=== PATIENT | male | born 1955 | race Caucasian/White ===

== ENCOUNTER 2017-01-25 20:48 | Emergency (ER) | payer MEDICAID ==
[~2017-01-25] VITALS: Ht 185.4 cm; Wt 90.0 kg
[~2017-01-25 20:48] MED LIST: ALBU0.63 NEB; TIOT18CA INH; [UNRECOGNIZED DRUG - REMARK]
[2017-01-25] MEDS ORDERED: ONDANSETRON 2MG/ML, 2ML IVPush ONE (21:30)
[2017-01-25] MEDS ORDERED: SODIUM CHLORIDE FLUSH 10ML SYR IVF ONE (21:30)
[2017-01-25] MEDS ORDERED: SODIUM CHLORIDE 0.9% 1,000ML IVBOLUS ONE (21:30)
[2017-01-25] MEDS ORDERED: LORazepam 2 MG/ML, 1ML IVPush ONE (21:30)
[2017-01-25] MEDS ORDERED: MORPHINE SULFATE 4 MG/ML, 1ML IVPush PRN (21:30)
[2017-01-25] MEDS ORDERED: ONDANSETRON 2MG/ML, 2ML ONE (21:51)
[2017-01-25] MEDS ORDERED: MORPHINE SULFATE 4 MG/ML, 1ML ONE (21:51)
[2017-01-25 22:47] LABS: ASPARTATE AMINO TRANSFERASE 26 U/L (15-37); BLOOD UREA NITROGEN 8 mg/dL (7-18)
[2017-01-25 22:52] LABS: IS PT STATUS REG ER OR PRE ER? YES
[2017-01-26 02:53] VITALS: BP 142/81
== END 2017-01-26 02:55 | disposition home or self-care (01) ==
LOC: ED 22:54
DX: K29.20 Alcoholic gastritis without bleeding (principal); R10.13 Epigastric pain; F10.220 Alcohol dependence with intoxication, uncomplicated; J44.9 Chronic obstructive pulmonary disease, unspecified; I10 Essential (primary) hypertension; J45.909 Unspecified asthma, uncomplicated; F17.210 Nicotine dependence, cigarettes, uncomplicated; E78.00 Pure hypercholesterolemia, unspecified; Z91.14 Patient's other noncompliance with medication regimen
CPT/HCPCS: 36415; 74022; 80053; 80307; 81003; 83690; 84484; 85025; 93005; 96361; 96374; 96375; 99285; J2405; J7030

== ENCOUNTER 2017-04-22 07:56 | Inpatient (IN) | payer MEDICAID ==
[~2017-04-22] VITALS: Ht 185.4 cm; Wt 83.2 kg
[2017-04-22] MEDS ORDERED: ALBUTEROL/IPRATROPIUM 2.5MG/0.5MG, 3 ML NPPB ONE (09:00)
[2017-04-22] MEDS ORDERED: SODIUM CHLORIDE FLUSH 10ML SYR IVF ONE (09:00)
[2017-04-22] MEDS ORDERED: ONDANSETRON 2MG/ML, 2ML IVPush ONE (09:00)
[2017-04-22] MEDS ORDERED: SODIUM CHLORIDE 0.9% 1,000ML IVBOLUS ONE (09:00)
[2017-04-22] MEDS ORDERED: MORPHINE SULFATE 4 MG/ML, 1ML IVPush PRN (09:00)
[2017-04-22] MEDS ORDERED: FAMOTIDINE 20 MG/2 ML IVP ONE (09:00)
[2017-04-22] MEDS ORDERED: ALBUTEROL/IPRATROPIUM 2.5MG/0.5MG, 3 ML ONE (09:02)
[2017-04-22 09:12] LABS: ASPARTATE AMINO TRANSFERASE 39 U/L (15-37); BLOOD UREA NITROGEN 5 mg/dL (7-18)
[2017-04-22] MEDS ORDERED: ONDANSETRON 2MG/ML, 2ML ONE (09:15)
[2017-04-22] MEDS ORDERED: MORPHINE SULFATE 4 MG/ML, 1ML ONE (09:15)
[2017-04-22] MEDS ORDERED: FAMOTIDINE 20 MG/2 ML ONE (09:16)
[2017-04-22] MEDS ORDERED: [UNRECOGNIZED DRUG - REMARK] (09:38)
[2017-04-22] MEDS ORDERED: [UNRECOGNIZED DRUG - REMARK] PO (09:38)
[2017-04-22] MEDS ORDERED: OMNIPAQUE 350 MG/ML, 100ML BOTTLE ONE (10:34)
[2017-04-22] MEDS ORDERED: LEVOFLOXACIN/PMX 750MG/150ML 150 ML IVPB ONE (11:30)
[2017-04-22] MEDS ORDERED: LEVOFLOXACIN/PMX 750MG/150ML 150 ML ONE (11:43)
[2017-04-22] MEDS ORDERED: SODIUM CHLORIDE 0.9% 1,000 ML IV ONE (12:04)
[2017-04-22] MEDS ORDERED: SODIUM CHLORIDE FLUSH 10ML SYR IVF PRN (12:30)
[2017-04-22] MEDS: SODIUM CHLORIDE 0.9% 1,000 ML IV SCH (12:49)
[2017-04-22] MEDS ORDERED: BISACODYL 10 MG SUPP PR PRN (13:00)
[2017-04-22] MEDS ORDERED: ENALAPRILAT 1.25 MG/ML, 2ML IVPush PRN (13:00)
[2017-04-22] MEDS ORDERED: LORazepam 1MG TABLET PO PRN ×3 (13:00)
[2017-04-22] MEDS ORDERED: ONDANSETRON 2MG/ML, 2ML IVPush PRN (13:00)
[2017-04-22] MEDS ORDERED: DOCUSATE 100 MG CAPSULE PO PRN (13:00)
[2017-04-22] MEDS ORDERED: LABETALOL 5MG/ML, 20ML IVPush PRN (13:00)
[2017-04-22] MEDS ORDERED: LORazepam 2 MG/ML, 1ML IV PRN ×4 (13:00)
[2017-04-22] MEDS ORDERED: POLYETHYLENE GLYCOL 17 GM PACKET PO PRN (13:00)
[2017-04-22] MEDS ORDERED: ALBUTEROL/IPRATROPIUM 2.5MG/0.5MG, 3 ML NPPB SCH (13:00)
[2017-04-22] MEDS ORDERED: morphine SULFATE 10 MG/ML, 1ML IVPush PRN (13:00)
[2017-04-22] MEDS: NICOTINE 7 MG/24 HR PATCH.TD24 TD SCH (14:00)
[2017-04-22 14:05] VITALS: BP 124/87
[2017-04-22 14:13] VITALS: BP 124/87
[2017-04-22] MEDS: POTASSIUM CHLORIDE 20 MEQ, MAGNESIUM SULFATE 2 GM, THIAMINE 100 MG, MVI ADULT 10 ML, FO... IV SCH ×2 (14:56→23:02)
[2017-04-22] MEDS: CEFTRIAXONE PMX 1GM/50ML 50 ML IV SCH (14:59)
[2017-04-22] MEDS: ALBUTEROL/IPRATROPIUM 2.5MG/0.5MG, 3 ML NPPB SCH ×2 (15:00→20:00)
[2017-04-22] MEDS: PANTOPRAZOLE 40 MG IV IVPush SCH (15:02)
[2017-04-22] MEDS: methylPREDNISolone SOD SUCC 125 MG/2 ML IVPush SCH ×2 (15:02→20:53)
[2017-04-22] MEDS: HEPARIN 5,000 UNITS/ML, 1ML SQ SCH ×2 (15:02→22:36)
[2017-04-22] MEDS: DOXYCYCLINE 100 MG in DEXTROSE 5% 250 ML IV SCH (15:57)
[2017-04-22 19:22] VITALS: BP 126/88
[2017-04-22] MEDS: LORazepam 2 MG/ML, 1ML IV PRN (20:53)
[2017-04-23 02:00] VITALS: BP 149/83
[2017-04-23] MEDS: SODIUM CHLORIDE 0.9% 1,000 ML IV SCH ×2 (02:00→14:00)
[2017-04-23] MEDS: PANTOPRAZOLE 40 MG IV IVPush SCH ×2 (02:00→14:58)
[2017-04-23] MEDS: methylPREDNISolone SOD SUCC 125 MG/2 ML IVPush SCH ×4 (03:00→21:46)
[2017-04-23] MEDS: DOXYCYCLINE 100 MG in DEXTROSE 5% 250 ML IV SCH ×2 (03:00→16:15)
[2017-04-23 05:56] LABS: ASPARTATE AMINO TRANSFERASE 18 U/L (15-37); BLOOD UREA NITROGEN 4 mg/dL (7-18)
[2017-04-23 07:03] VITALS: BP_SYST 146; BP_SYST 175; BP_DIAS 103; BP_DIAS 78
[2017-04-23 07:10] LABS: ANISOCYTOSIS 1+
[2017-04-23] MEDS: HEPARIN 5,000 UNITS/ML, 1ML SQ SCH ×3 (07:58→22:44)
[2017-04-23] MEDS: LORazepam 2 MG/ML, 1ML IV PRN ×2 (07:58→10:09)
[2017-04-23] MEDS: ALBUTEROL/IPRATROPIUM 2.5MG/0.5MG, 3 ML NPPB SCH ×4 (08:20→20:00)
[2017-04-23] MEDS ORDERED: ERGOCALCIFEROL 50,000 UNIT CAPSULE PO SCH (09:30)
[2017-04-23] MEDS ORDERED: POTASSIUM CHLORIDE 40 MEQ in SODIUM CHLORIDE 0.9% 500 ML IV ONE (09:30)
[2017-04-23] MEDS: POTASSIUM CHLORIDE 20 MEQ, MAGNESIUM SULFATE 2 GM, THIAMINE 100 MG, MVI ADULT 10 ML, FO... IV SCH (10:01)
[2017-04-23 13:25] VITALS: BP 157/91
[2017-04-23] MEDS: LORazepam 1MG TABLET PO PRN (13:30)
[2017-04-23] MEDS: NICOTINE 7 MG/24 HR PATCH.TD24 TD SCH (14:00)
[2017-04-23] MEDS: CEFTRIAXONE PMX 1GM/50ML 50 ML IV SCH (15:20)
[2017-04-23 19:07] VITALS: BP 159/91
[2017-04-23] MEDS ORDERED: MAGNESIUM SULFATE IV SCH ×2 (20:30→21:27)
[2017-04-23] MEDS ORDERED: THIAMINE IV SCH ×2 (20:30→21:27)
[2017-04-23] MEDS ORDERED: FOLIC ACID IV SCH ×2 (20:30→21:27)
[2017-04-23] MEDS ORDERED: POTASSIUM CHLORIDE IV SCH ×2 (20:30→21:27)
[2017-04-23] MEDS ORDERED: [UNRECOGNIZED DRUG - OTHER] IV SCH ×2 (20:30→21:27)
[2017-04-23] MEDS: OXYcodone IR 5MG TABLET PO PRN (21:46)
[2017-04-23] MEDS: POTASSIUM CHLORIDE IV SCH (21:51)
[2017-04-23] MEDS: MVI ADULT IV SCH (21:51)
[2017-04-23] MEDS: FOLIC ACID IV SCH (21:51)
[2017-04-23] MEDS: [UNRECOGNIZED DRUG - OTHER] IV SCH (21:51)
[2017-04-23] MEDS: THIAMINE IV SCH (21:51)
[2017-04-23] MEDS ORDERED: D5%-0.9% NACL+KCL 20MEQ 1,000 ML IV SCH (22:00)
[2017-04-23] MEDS: D5%-0.9% NACL+KCL 20MEQ 1,000 ML IV SCH (22:00)
[2017-04-23] MEDS: LORazepam 0.5MG TABLET PO PRN (22:44)
[2017-04-24 00:40] VITALS: BP 155/94
[2017-04-24] MEDS: PANTOPRAZOLE 40 MG IV IVPush SCH ×2 (03:05→14:59)
[2017-04-24] MEDS: DOXYCYCLINE 100 MG in DEXTROSE 5% 250 ML IV SCH ×2 (03:06→14:57)
[2017-04-24] MEDS: methylPREDNISolone SOD SUCC 125 MG/2 ML IVPush SCH ×3 (03:06→17:42)
[2017-04-24 06:25] LABS: BLOOD UREA NITROGEN 5 mg/dL (7-18)
[2017-04-24 07:00] VITALS: BP 155/82
[2017-04-24] MEDS: HEPARIN 5,000 UNITS/ML, 1ML SQ SCH ×3 (07:00→17:47)
[2017-04-24] MEDS: ALBUTEROL/IPRATROPIUM 2.5MG/0.5MG, 3 ML NPPB SCH (08:00)
[2017-04-24] MEDS: LORazepam 0.5MG TABLET PO PRN ×2 (08:39→15:00)
[2017-04-24] MEDS: D5%-0.9% NACL+KCL 20MEQ 1,000 ML IV SCH (09:28)
[2017-04-24] MEDS: NICOTINE 7 MG/24 HR PATCH.TD24 TD SCH (14:00)
[2017-04-24] MEDS ORDERED: POTASSIUM CHLORIDE 40 MEQ in SODIUM CHLORIDE 0.9% 500 ML IV ONE (15:00)
[2017-04-24 15:15] VITALS: BP 150/91
[2017-04-24] MEDS: CEFTRIAXONE PMX 1GM/50ML 50 ML IV SCH (17:41)
[2017-04-24] MEDS: OXYcodone IR 5MG TABLET PO PRN (17:53)
[2017-04-24 20:00] VITALS: BP 164/95
[2017-04-24] MEDS: LORazepam 1MG TABLET PO PRN (20:31)
[2017-04-24] MEDS ORDERED: METHOCARBAMOL 500 MG TABLET PO ONE (22:00)
[2017-04-25] MEDS: methylPREDNISolone SOD SUCC 125 MG/2 ML IVPush SCH ×2 (00:56→06:27)
[2017-04-25] MEDS: MVI ADULT IV SCH (01:00)
[2017-04-25] MEDS: THIAMINE IV SCH (01:00)
[2017-04-25] MEDS: POTASSIUM CHLORIDE IV SCH (01:00)
[2017-04-25] MEDS: FOLIC ACID IV SCH (01:00)
[2017-04-25] MEDS: [UNRECOGNIZED DRUG - OTHER] IV SCH (01:00)
[2017-04-25 02:00] VITALS: BP 157/74
[2017-04-25] MEDS: DOXYCYCLINE 100 MG in DEXTROSE 5% 250 ML IV SCH (02:53)
[2017-04-25] MEDS: HEPARIN 5,000 UNITS/ML, 1ML SQ SCH ×2 (02:53→09:40)
[2017-04-25] MEDS: PANTOPRAZOLE 40 MG IV IVPush SCH (03:05)
[2017-04-25 05:47] LABS: BLOOD UREA NITROGEN 12 mg/dL (7-18)
[2017-04-25] MEDS ORDERED: ALBUTEROL/IPRATROPIUM 2.5MG/0.5MG, 3 ML NPPB PRN (07:00)
[2017-04-25 07:35] VITALS: BP 116/75
[2017-04-25] MEDS: LORazepam 0.5MG TABLET PO PRN (09:37)
[2017-04-25] MEDS ORDERED: POTASSIUM CHLORIDE 20 MEQ TAB.ER.PRT PO ONE (10:00)
[2017-04-25] MEDS ORDERED: IPRA3AMP NPPB (10:18)
[2017-04-25] MEDS ORDERED: OMEP-110 PO (10:18)
[2017-04-25] MEDS ORDERED: ERGO500017 PO (10:18)
[2017-04-25] MEDS ORDERED: CEFD300C37 PO (10:18)
[2017-04-25] MEDS ORDERED: DOXY100T PO (10:18)
[2017-04-25] MEDS ORDERED: PRED5TAB PO (10:18)
[2017-04-25] MEDS ORDERED: LOSA25TA2 PO (10:27)
[2017-04-25] MEDS ORDERED: FLUT1AER INH (10:29)
[2017-04-25] MEDS ORDERED: PNEUMOCOCCAL 23 VACCINE IM-VACC ONE (11:00)
[2017-04-26] MEDS ORDERED: FLUTICASONE/VILANTEROL 100-25MCG/INH INH SCH (09:00)
== END 2017-04-25 11:09 | disposition home or self-care (01) | DRG 190 ==
LOC: ED 12:03 → EDIP 12:04 → ED 12:12 → 4EST 13:52
PROVIDERS: ADMIT Internal Medicine; ATTEND Internal Medicine
PROC: 0T9B70Z Drainage of Bladder with Drainage Device, Via Natural or Artificial Opening (ICD-10-PCS; principal; 2017-04-22)
DX: J44.0 Chronic obstructive pulmonary disease with (acute) lower respiratory infection (principal); J18.9 Pneumonia, unspecified organism; F10.239 Alcohol dependence with withdrawal, unspecified; E87.2 Acidosis; J44.1 Chronic obstructive pulmonary disease with (acute) exacerbation; F10.220 Alcohol dependence with intoxication, uncomplicated; E78.5 Hyperlipidemia, unspecified; Z91.19 Patient's noncompliance with other medical treatment and regimen; R09.02 Hypoxemia; I10 Essential (primary) hypertension; E78.00 Pure hypercholesterolemia, unspecified; F17.210 Nicotine dependence, cigarettes, uncomplicated; Z86.73 Personal history of transient ischemic attack (TIA), and cerebral infarction without residual deficits; K76.0 Fatty (change of) liver, not elsewhere classified; E55.9 Vitamin D deficiency, unspecified; K29.70 Gastritis, unspecified, without bleeding; F10.10 Alcohol abuse, uncomplicated; Z80.9 Family history of malignant neoplasm, unspecified; Z82.49 Family history of ischemic heart disease and other diseases of the circulatory system; D75.89 Other specified diseases of blood and blood-forming organs
CPT/HCPCS: 36415; 71020; 74177; 76700; 80048; 80053; 80061; 80307; 81003; 82306; 82607; 83036; 83605; 83690; 83735; 84439; 84443; 85025; 87040; 90732; 93005; 93306; 94640; 96374; 96375; J0696; J1644; J1956; J2405; J3411; J3475; J3480; J7042; J7060; J7620; Q9967; C9113; J2060; J2270; J2930; J7030; J7040; S0028

== ENCOUNTER 2017-05-04 00:30 | Emergency (ER) | payer MEDICAID ==
[~2017-05-04] VITALS: Ht 185.4 cm; Wt 91.0 kg
[~2017-05-04 00:30] MED LIST changes: +CEFD300C37 PO; +DOXY100T PO; +ERGO500017 PO; +FLUT1AER INH; +IPRA3AMP NPPB; +LOSA25TA2 PO; +OMEP-110 PO; +PRED5TAB PO; +[UNRECOGNIZED DRUG - REMARK]; +[UNRECOGNIZED DRUG - REMARK] PO
[2017-05-04] MEDS ORDERED: HYDROcodone/APAP 5/325 TABLET PO ONE (01:00)
[2017-05-04] MEDS ORDERED: HYDROcodone/APAP 5/325 TABLET ONE (01:00)
[2017-05-04 01:16] LABS: BLOOD UREA NITROGEN 10 mg/dL (7-18)
[2017-05-04 02:42] VITALS: BP 132/74
== END 2017-05-04 02:52 | disposition home or self-care (01) ==
LOC: ED 00:48
DX: M25.562 Pain in left knee (principal); M25.561 Pain in right knee; M25.572 Pain in left ankle and joints of left foot; M25.571 Pain in right ankle and joints of right foot; J44.9 Chronic obstructive pulmonary disease, unspecified; I10 Essential (primary) hypertension; E78.00 Pure hypercholesterolemia, unspecified; F17.200 Nicotine dependence, unspecified, uncomplicated
CPT/HCPCS: 36415; 80048; 82040; 85025; 85651; 86140; 99285

== ENCOUNTER 2017-05-18 01:40 | Emergency (ER) | payer MEDICAID ==
[~2017-05-18] VITALS: Ht 185.4 cm; Wt 92.0 kg
[2017-05-18] MEDS ORDERED: PROMETHAZINE 25 MG/ML, 1ML IM ONE (02:30)
[2017-05-18 02:42] LABS: BLOOD UREA NITROGEN 4 mg/dL (7-18)
[2017-05-18 02:45] LABS: IS PT STATUS REG ER OR PRE ER? YES
[2017-05-18] MEDS ORDERED: PROMETHAZINE 25 MG/ML, 1ML ONE (02:48)
[2017-05-18] MEDS ORDERED: ASPIRIN 325 MG TABLET ONE (03:20)
[2017-05-18] MEDS ORDERED: ASPIRIN 325 MG TABLET PO SCH (03:30)
[2017-05-18] MEDS ORDERED: ACETAMINOPHEN 500 MG TABLET PO ONE (05:00)
[2017-05-18] MEDS ORDERED: ACETAMINOPHEN 500 MG TABLET ONE (05:10)
[2017-05-18 05:16] VITALS: BP 112/62
== END 2017-05-18 05:37 | disposition home or self-care (01) ==
LOC: ED 02:46
DX: J90 Pleural effusion, not elsewhere classified (principal); J15.9 Unspecified bacterial pneumonia; J44.0 Chronic obstructive pulmonary disease with (acute) lower respiratory infection; E78.00 Pure hypercholesterolemia, unspecified; F10.220 Alcohol dependence with intoxication, uncomplicated; I10 Essential (primary) hypertension; M19.90 Unspecified osteoarthritis, unspecified site; Z72.9 Problem related to lifestyle, unspecified
CPT/HCPCS: 36415; 70450; 71010; 80048; 80307; 82040; 84484; 85025; 93005; 96372; 99285; J2550

== ENCOUNTER 2017-05-31 19:42 | Inpatient (IN) | payer MEDICAID ==
[~2017-05-31] VITALS: Ht 185.4 cm; Wt 83.1 kg
[2017-05-31] MEDS ORDERED: LIDOCAINE 1%, 20ML ONE (19:47)
[2017-05-31] MEDS ORDERED: TRAZ50TA18 PO (20:06)
[2017-05-31] MEDS ORDERED: CITA40TA5 PO (20:06)
[2017-05-31 20:17] LABS: ASPARTATE AMINO TRANSFERASE 21 U/L (15-37); BLOOD UREA NITROGEN 4 mg/dL (7-18)
[2017-05-31 20:21] LABS: IS PT STATUS REG ER OR PRE ER? YES
[2017-05-31] MEDS ORDERED: TRAZODONE 50MG TABLET PO PRN (23:30)
[2017-05-31] MEDS ORDERED: ACETAMINOPHEN 325 MG TABLET PO PRN (23:30)
[2017-05-31] MEDS ORDERED: ONDANSETRON 2MG/ML, 2ML IVPush PRN (23:30)
[2017-05-31] MEDS ORDERED: POLYETHYLENE GLYCOL 17 GM PACKET PO PRN (23:30)
[2017-05-31] MEDS ORDERED: NITROGLYCERIN 0.4 MG BOTTLE (25 TABS) SL PRN (23:30)
[2017-05-31] MEDS ORDERED: ERGOCALCIFEROL 50,000 UNIT CAPSULE PO SCH (23:30)
[2017-05-31] MEDS ORDERED: BISACODYL 10 MG SUPP PR PRN (23:30)
[2017-05-31 23:37] VITALS: BP 119/80
[2017-05-31 23:39] VITALS: BP 119/80
[2017-06-01 01:00] VITALS: BP 126/85
[2017-06-01] MEDS: HYDROcodone/APAP 5/325 TABLET PO PRN (01:01)
[2017-06-01] MEDS: HEPARIN 5,000 UNITS/ML, 1ML SQ SCH ×3 (01:02→16:48)
[2017-06-01] MEDS: SODIUM CHLORIDE FLUSH 10ML SYR IVF SCH ×3 (01:02→19:53)
[2017-06-01 02:48] LABS: ASPARTATE AMINO TRANSFERASE 20 U/L (15-37); BLOOD UREA NITROGEN 3 mg/dL (7-18)
[2017-06-01 02:55] LABS: IS PT STATUS REG ER OR PRE ER? NO
[2017-06-01] MEDS: ASPIRIN 325 MG TABLET EC PO SCH (06:04)
[2017-06-01] MEDS: morphine SULFATE 10 MG/ML, 1ML IVPush PRN ×2 (06:05→07:53)
[2017-06-01 07:21] VITALS: BP 156/81
[2017-06-01] MEDS: BEER 12 OZ CAN PO SCH ×3 (07:48→16:43)
[2017-06-01] MEDS ORDERED: LORazepam 2 MG/ML, 1ML IVPush PRN (08:00)
[2017-06-01 08:24] LABS: IS PT STATUS REG ER OR PRE ER? NO
[2017-06-01] MEDS: LOSARTAN 25MG TABLET PO SCH (08:29)
[2017-06-01] MEDS: CITALOPRAM 20 MG TABLET PO SCH (08:29)
[2017-06-01] MEDS: SENNA/DOCUSATE TABLET PO SCH (08:29)
[2017-06-01] MEDS: CEFTRIAXONE PMX 1GM/50ML 50 ML IV SCH (08:29)
[2017-06-01] MEDS: DOXYCYCLINE 50 MG/5 ML ORAL SUSP PO SCH ×2 (08:29→19:53)
[2017-06-01] MEDS: IPRATROPIUM 0.5 MG/2.5 ML INHA NPPB SCH ×3 (09:00→19:41)
[2017-06-01] MEDS: FLUTICASONE/VILANTEROL 100-25MCG/INH INH SCH (09:50)
[2017-06-01 13:43] VITALS: BP 161/98
[2017-06-01] MEDS ORDERED: HALOPERIDOL 5 MG/ML IM PRN (14:30)
[2017-06-01] MEDS: ENALAPRILAT 1.25 MG/ML, 2ML IV SCH ×2 (15:16→19:53)
[2017-06-01] MEDS ORDERED: LORazepam 2 MG/ML, 1ML ONE (16:40)
[2017-06-01] MEDS: LORazepam 2 MG/ML, 1ML IVPush PRN ×2 (16:42→22:49)
[2017-06-01 19:49] VITALS: BP 131/79
[2017-06-02] MEDS: HEPARIN 5,000 UNITS/ML, 1ML SQ SCH ×3 (01:32→17:14)
[2017-06-02 02:57] VITALS: BP 150/90
[2017-06-02] MEDS: IPRATROPIUM 0.5 MG/2.5 ML INHA NPPB SCH (03:00)
[2017-06-02] MEDS: ENALAPRILAT 1.25 MG/ML, 2ML IV SCH ×4 (03:02→20:27)
[2017-06-02] MEDS: morphine SULFATE 10 MG/ML, 1ML IVPush PRN ×4 (04:37→20:26)
[2017-06-02] MEDS: ASPIRIN 325 MG TABLET EC PO SCH (06:21)
[2017-06-02] MEDS: LORazepam 2 MG/ML, 1ML IVPush PRN ×4 (06:22→22:41)
[2017-06-02 08:04] VITALS: BP 117/88
[2017-06-02] MEDS: CEFTRIAXONE PMX 1GM/50ML 50 ML IV SCH (08:48)
[2017-06-02] MEDS: FLUTICASONE/VILANTEROL 100-25MCG/INH INH SCH (08:48)
[2017-06-02] MEDS: CITALOPRAM 20 MG TABLET PO SCH (08:49)
[2017-06-02] MEDS: SENNA/DOCUSATE TABLET PO SCH (08:49)
[2017-06-02] MEDS: LOSARTAN 25MG TABLET PO SCH (08:49)
[2017-06-02] MEDS: SODIUM CHLORIDE FLUSH 10ML SYR IVF SCH ×2 (08:49→20:27)
[2017-06-02] MEDS ORDERED: ALBUTEROL/IPRATROPIUM 2.5MG/0.5MG, 3 ML NPPB PRN (10:00)
[2017-06-02] MEDS: BEER 12 OZ CAN PO SCH ×3 (10:08→17:34)
[2017-06-02] MEDS: DOXYCYCLINE 50 MG/5 ML ORAL SUSP PO SCH ×2 (10:08→20:26)
[2017-06-02 13:11] VITALS: BP 143/68
[2017-06-02 19:29] VITALS: BP 115/77
[2017-06-02] MEDS ORDERED: ACETAMINOPHEN 325 MG TABLET PO PRN (20:00)
[2017-06-02] MEDS ORDERED: ONDANSETRON 2MG/ML, 2ML IVPush PRN (20:00)
[2017-06-02] MEDS ORDERED: TRAZODONE 50MG TABLET PO PRN (20:00)
[2017-06-02] MEDS ORDERED: BISACODYL 10 MG SUPP PR PRN (20:00)
[2017-06-02] MEDS ORDERED: HALOPERIDOL 5 MG/ML IM PRN (20:00)
[2017-06-02] MEDS ORDERED: NITROGLYCERIN 0.4 MG BOTTLE (25 TABS) SL PRN (20:00)
[2017-06-02 20:19] VITALS: BP 107/69
[2017-06-02] MEDS: CHLORDIAZEPOXIDE 25 MG CAPSULE PO PRN (20:26)
[2017-06-03] MEDS: LORazepam 2 MG/ML, 1ML IVPush PRN ×3 (01:50→23:24)
[2017-06-03] MEDS: HEPARIN 5,000 UNITS/ML, 1ML SQ SCH ×3 (01:51→16:30)
[2017-06-03] MEDS: ENALAPRILAT 1.25 MG/ML, 2ML IV SCH ×4 (03:00→21:00)
[2017-06-03 03:30] VITALS: BP 106/81
[2017-06-03] MEDS: ALBUTEROL/IPRATROPIUM 2.5MG/0.5MG, 3 ML NPPB PRN (05:04)
[2017-06-03 08:45] VITALS: BP 104/71
[2017-06-03] MEDS: SENNA/DOCUSATE TABLET PO SCH (09:00)
[2017-06-03] MEDS: BEER 12 OZ CAN PO SCH ×3 (09:14→17:00)
[2017-06-03] MEDS: FLUTICASONE/VILANTEROL 100-25MCG/INH INH SCH (09:15)
[2017-06-03] MEDS: SODIUM CHLORIDE FLUSH 10ML SYR IVF SCH ×2 (09:18→22:30)
[2017-06-03] MEDS: CITALOPRAM 20 MG TABLET PO SCH (09:19)
[2017-06-03] MEDS: DOXYCYCLINE 50 MG/5 ML ORAL SUSP PO SCH ×2 (09:19→22:30)
[2017-06-03] MEDS: ASPIRIN 325 MG TABLET EC PO SCH (09:19)
[2017-06-03] MEDS: LOSARTAN 25MG TABLET PO SCH (09:19)
[2017-06-03] MEDS: CHLORDIAZEPOXIDE 25 MG CAPSULE PO PRN (09:20)
[2017-06-03] MEDS: CEFTRIAXONE PMX 1GM/50ML 50 ML IV SCH (09:30)
[2017-06-03 15:00] VITALS: BP 106/67
[2017-06-03 19:44] VITALS: BP 134/90
[2017-06-03] MEDS: METOPROLOL TARTRATE 25 MG TABLET PO SCH (19:45)
[2017-06-03 22:29] VITALS: BP 116/78
[2017-06-03] MEDS: morphine SULFATE 10 MG/ML, 1ML IVPush PRN (22:55)
[2017-06-03 23:16] VITALS: BP 102/67
[2017-06-04] VITALS (8 sets, daily range): BP systolic 100–126; BP diastolic 64–82
[2017-06-04] MEDS: ALBUTEROL/IPRATROPIUM 2.5MG/0.5MG, 3 ML NPPB PRN (00:05)
[2017-06-04] MEDS: HEPARIN 5,000 UNITS/ML, 1ML SQ SCH ×3 (00:46→17:31)
[2017-06-04] MEDS: ENALAPRILAT 1.25 MG/ML, 2ML IV SCH ×4 (03:00→20:39)
[2017-06-04] MEDS: CHLORDIAZEPOXIDE 25 MG CAPSULE PO PRN (03:46)
[2017-06-04] MEDS: ASPIRIN 325 MG TABLET EC PO SCH (06:07)
[2017-06-04] MEDS: METOPROLOL TARTRATE 25 MG TABLET PO SCH (06:07)
[2017-06-04] MEDS: SODIUM CHLORIDE FLUSH 10ML SYR IVF SCH ×2 (09:00→20:40)
[2017-06-04] MEDS: DOXYCYCLINE 50 MG/5 ML ORAL SUSP PO SCH ×2 (09:00→20:39)
[2017-06-04] MEDS: SENNA/DOCUSATE TABLET PO SCH (09:00)
[2017-06-04] MEDS: CEFTRIAXONE PMX 1GM/50ML 50 ML IV SCH (09:00)
[2017-06-04] MEDS: CITALOPRAM 20 MG TABLET PO SCH (09:00)
[2017-06-04] MEDS: LOSARTAN 25MG TABLET PO SCH (09:00)
[2017-06-04] MEDS: FLUTICASONE/VILANTEROL 100-25MCG/INH INH SCH (09:00)
[2017-06-04] MEDS: HYDROcodone/APAP 5/325 TABLET PO PRN (09:02)
[2017-06-04] MEDS: BEER 12 OZ CAN PO SCH ×3 (09:27→17:31)
[2017-06-04] MEDS: morphine SULFATE 10 MG/ML, 1ML IVPush PRN ×2 (10:08→22:41)
[2017-06-04] MEDS: METOPROLOL TARTRATE 50 MG TABLET PO SCH (17:31)
[2017-06-05] MEDS: CHLORDIAZEPOXIDE 25 MG CAPSULE PO PRN (00:44)
[2017-06-05] MEDS: HEPARIN 5,000 UNITS/ML, 1ML SQ SCH ×2 (00:44→08:30)
[2017-06-05 02:42] VITALS: BP 103/70
[2017-06-05] MEDS: ENALAPRILAT 1.25 MG/ML, 2ML IV SCH ×2 (02:47→08:08)
[2017-06-05] MEDS: HYDROcodone/APAP 5/325 TABLET PO PRN (04:32)
[2017-06-05 05:43] VITALS: BP 100/67
[2017-06-05] MEDS: METOPROLOL TARTRATE 50 MG TABLET PO SCH (05:44)
[2017-06-05] MEDS: ASPIRIN 325 MG TABLET EC PO SCH (05:44)
[2017-06-05 07:05] VITALS: BP 94/59
[2017-06-05] MEDS ORDERED: METO50TA82 PO (08:01)
[2017-06-05] MEDS ORDERED: CEFD300C37 PO (08:01)
[2017-06-05] MEDS ORDERED: DOXY50SY PO (08:01)
[2017-06-05] MEDS ORDERED: TRAM50TA2 PO (08:01)
[2017-06-05] MEDS: CEFTRIAXONE PMX 1GM/50ML 50 ML IV SCH (08:06)
[2017-06-05] MEDS: FLUTICASONE/VILANTEROL 100-25MCG/INH INH SCH (08:08)
[2017-06-05] MEDS: SODIUM CHLORIDE FLUSH 10ML SYR IVF SCH (08:08)
[2017-06-05] MEDS: CITALOPRAM 20 MG TABLET PO SCH (08:09)
[2017-06-05] MEDS: SENNA/DOCUSATE TABLET PO SCH (08:09)
[2017-06-05] MEDS: DOXYCYCLINE 50 MG/5 ML ORAL SUSP PO SCH (08:09)
[2017-06-05] MEDS ORDERED: SIMV10TA PO (08:10)
[2017-06-05] MEDS ORDERED: ASPI-496 PO (08:10)
[2017-06-05] MEDS ORDERED: FLUT1AER INH (08:21)
[2017-06-05] MEDS: BEER 12 OZ CAN PO SCH (09:11)
[2017-06-05] MEDS ORDERED: DOXY100T PO (09:43)
[2017-06-05 10:35] VITALS: BP 100/68
[2017-06-05] MEDS ORDERED: FOLI-17 PO (11:21)
[2017-06-05] MEDS ORDERED: MAGN400T7 PO (11:22)
[2017-06-05] MEDS ORDERED: THIA100T10 PO (11:22)
== END 2017-06-05 14:49 | disposition left against medical advice (07) | DRG 204 ==
LOC: ED 20:34 → EDIP 22:19 → 5SO 23:55 → DCLOUNGE 06-05 11:14
DX: R07.81 Pleurodynia (principal); E43 Unspecified severe protein-calorie malnutrition; J15.9 Unspecified bacterial pneumonia; E87.1 Hypo-osmolality and hyponatremia; F10.239 Alcohol dependence with withdrawal, unspecified; J44.0 Chronic obstructive pulmonary disease with (acute) lower respiratory infection; J96.10 Chronic respiratory failure, unspecified whether with hypoxia or hypercapnia; E78.5 Hyperlipidemia, unspecified; D75.89 Other specified diseases of blood and blood-forming organs; F32.9 Major depressive disorder, single episode, unspecified; I10 Essential (primary) hypertension; F17.210 Nicotine dependence, cigarettes, uncomplicated; Z86.73 Personal history of transient ischemic attack (TIA), and cerebral infarction without residual deficits
CPT/HCPCS: 36415; 71010; 71250; 80053; 84484; 85025; 87040; 87324; 93005; 94640; 99285; J0696; J1644; J7620; J7644; J2060; J2270

== ENCOUNTER 2017-06-16 20:57 | Inpatient (IN) | payer MEDICAID ==
[~2017-06-16] VITALS: Ht 185.4 cm; Wt 86.8 kg
[~2017-06-16 20:57] MED LIST changes: +ASPI-496 PO; +CITA40TA5 PO; +DOXY50SY PO; +FOLI-17 PO; +MAGN400T7 PO; +METO50TA82 PO; +SIMV10TA PO; +THIA100T10 PO; +TRAM50TA2 PO; +TRAZ50TA18 PO
[2017-06-16] MEDS ORDERED: LORazepam 2 MG/ML, 1ML ONE (21:14)
[2017-06-16] MEDS ORDERED: methylPREDNISolone SOD SUCC 125 MG/2 ML ONE (21:15)
[2017-06-16 21:25] LABS: HEMATOCRIT 40.8 % (39.2-51.8); HEMOGLOBIN 13.6 g/dL (13.7-18.0)
[2017-06-16] MEDS ORDERED: ALBUTEROL/IPRATROPIUM 2.5MG/0.5MG, 3 ML ONE (21:25)
[2017-06-16] MEDS ORDERED: methylPREDNISolone SOD SUCC 125 MG/2 ML IVP ONE (21:30)
[2017-06-16] MEDS ORDERED: LORazepam 2 MG/ML, 1ML IVP ONE (21:30)
[2017-06-16] MEDS ORDERED: SODIUM CHLORIDE FLUSH 10ML SYR IVF ONE (21:30)
[2017-06-16] MEDS ORDERED: AZITHROMYCIN 500 MG in SODIUM CHLORIDE 0.9% 250 ML IV ONE (21:30)
[2017-06-16] MEDS ORDERED: ALBUTEROL/IPRATROPIUM 2.5MG/0.5MG, 3 ML NPPB ONE (21:30)
[2017-06-16] MEDS ORDERED: PLEASE ENTER HEIGHT AND WEIGHT MC SCH (21:30)
[2017-06-16 21:33] LABS: BLOOD UREA NITROGEN 4 mg/dL (7-18)
[2017-06-16 21:47] LABS: IS PT STATUS REG ER OR PRE ER? YES
[2017-06-16] MEDS ORDERED: ASPIRIN 81 MG TABLET CHEW ONE (21:58)
[2017-06-16] MEDS ORDERED: CEFTRIAXONE PMX 1GM/50ML 50 ML IV ONE (22:00)
[2017-06-16] MEDS ORDERED: ASPIRIN 81 MG TABLET CHEW PO ONE (22:00)
[2017-06-16] MEDS ORDERED: TRAZODONE 50MG TABLET PO PRN (22:30)
[2017-06-16] MEDS ORDERED: ACETAMINOPHEN 325 MG TABLET PO PRN (22:30)
[2017-06-16] MEDS ORDERED: ENALAPRILAT 1.25 MG/ML, 2ML IVPush PRN (22:30)
[2017-06-16] MEDS ORDERED: ONDANSETRON 2MG/ML, 2ML IVPush PRN (22:30)
[2017-06-16] MEDS ORDERED: MORPHINE SULFATE 4 MG/ML, 1ML IVPush ONE (22:30)
[2017-06-16] MEDS ORDERED: GABA600T2 PO (22:51)
[2017-06-16 23:31] VITALS: BP 121/73
[2017-06-16] MEDS: morphine SULFATE 10 MG/ML, 1ML IVPush PRN (23:54)
[2017-06-16] MEDS: SODIUM CHLORIDE 0.9% 1,000 ML IV SCH (23:55)
[2017-06-17] MEDS ORDERED: ALBUTEROL/IPRATROPIUM 2.5MG/0.5MG, 3 ML NPPB PRN (00:30)
[2017-06-17 01:01] VITALS: BP 102/69
[2017-06-17] MEDS: ENOXAPARIN 100 MG/ML SQ SCH ×3 (01:01→23:06)
[2017-06-17] MEDS: CEFTRIAXONE PMX 1GM/50ML 50 ML IV SCH (01:12)
[2017-06-17] MEDS: BEER 12 OZ CAN PO SCH ×5 (01:12→20:11)
[2017-06-17 02:42] LABS: HEMATOCRIT 40.8 % (39.2-51.8); HEMOGLOBIN 13.5 g/dL (13.7-18.0); WHITE BLOOD COUNT 8.8 x10^3/uL (3.4-10)
[2017-06-17] MEDS: morphine SULFATE 10 MG/ML, 1ML IVPush PRN ×2 (02:43→08:39)
[2017-06-17 02:55] LABS: BLOOD UREA NITROGEN 5 mg/dL (7-18)
[2017-06-17 02:58] LABS: ASPARTATE AMINO TRANSFERASE 11 U/L (15-37); IS PT STATUS REG ER OR PRE ER? NO
[2017-06-17] MEDS: ALBUTEROL/IPRATROPIUM 2.5MG/0.5MG, 3 ML NPPB SCH ×4 (07:00→20:00)
[2017-06-17 07:17] VITALS: BP 117/73
[2017-06-17] MEDS: METOPROLOL TARTRATE 50 MG TABLET PO SCH ×2 (08:32→17:47)
[2017-06-17] MEDS: OMEPRAZOLE 20 MG CAPSULE.DR PO SCH ×2 (08:32→17:47)
[2017-06-17] MEDS: ASPIRIN 81 MG TABLET EC PO SCH (08:32)
[2017-06-17] MEDS: MAGNESIUM OXIDE 400 MG TABLET PO SCH ×2 (08:32→20:36)
[2017-06-17] MEDS ORDERED: CEFTRIAXONE PMX 1GM/50ML 50 ML IV SCH (09:00)
[2017-06-17] MEDS: SODIUM CHLORIDE 0.9% 1,000 ML IV SCH ×2 (10:10→20:37)
[2017-06-17] MEDS: AZITHROMYCIN 500 MG in SODIUM CHLORIDE 0.9% 250 ML IV SCH (10:10)
[2017-06-17] MEDS ORDERED: LORazepam 0.5MG TABLET PO PRN (10:30)
[2017-06-17] MEDS ORDERED: LORazepam 1MG TABLET PO PRN ×2 (10:30)
[2017-06-17] MEDS ORDERED: LORazepam 2 MG/ML, 1ML IV PRN ×2 (10:30)
[2017-06-17] MEDS: LORazepam 2 MG/ML, 1ML IV PRN ×2 (12:35→17:40)
[2017-06-17 13:35] VITALS: BP 137/79
[2017-06-17 19:46] VITALS: BP 122/81
[2017-06-17] MEDS: SIMVASTATIN 10 MG TABLET PO SCH (20:37)
[2017-06-18 00:30] VITALS: BP 127/76
[2017-06-18] MEDS: CEFTRIAXONE PMX 1GM/50ML 50 ML IV SCH (01:03)
[2017-06-18 06:48] VITALS: BP 147/89
[2017-06-18] MEDS: ALBUTEROL/IPRATROPIUM 2.5MG/0.5MG, 3 ML NPPB SCH ×4 (07:00→19:48)
[2017-06-18] MEDS: SODIUM CHLORIDE 0.9% 1,000 ML IV SCH ×2 (08:08→23:24)
[2017-06-18] MEDS: ASPIRIN 81 MG TABLET EC PO SCH (08:09)
[2017-06-18] MEDS: METOPROLOL TARTRATE 50 MG TABLET PO SCH ×2 (08:09→17:41)
[2017-06-18] MEDS: MAGNESIUM OXIDE 400 MG TABLET PO SCH ×2 (08:09→20:11)
[2017-06-18] MEDS: BEER 12 OZ CAN PO SCH ×4 (08:09→20:11)
[2017-06-18] MEDS: OMEPRAZOLE 20 MG CAPSULE.DR PO SCH ×2 (08:09→17:41)
[2017-06-18] MEDS: morphine SULFATE 10 MG/ML, 1ML IVPush PRN ×4 (08:38→21:39)
[2017-06-18] MEDS: AZITHROMYCIN 500 MG in SODIUM CHLORIDE 0.9% 250 ML IV SCH (10:06)
[2017-06-18] MEDS: ENOXAPARIN 80 MG/0.8 ML SQ SCH ×2 (12:00→23:24)
[2017-06-18 14:41] VITALS: BP 114/74
[2017-06-18 17:41] VITALS: BP 130/68
[2017-06-18 19:24] VITALS: BP 137/87
[2017-06-18] MEDS: SIMVASTATIN 10 MG TABLET PO SCH (20:11)
[2017-06-19] MEDS: CEFTRIAXONE PMX 1GM/50ML 50 ML IV SCH (00:38)
[2017-06-19 00:42] VITALS: BP 119/73
[2017-06-19] MEDS: BEER 12 OZ CAN PO SCH ×4 (07:00→20:16)
[2017-06-19] MEDS: ALBUTEROL/IPRATROPIUM 2.5MG/0.5MG, 3 ML NPPB SCH ×4 (07:10→20:00)
[2017-06-19 07:54] VITALS: BP 146/78
[2017-06-19] MEDS: morphine SULFATE 10 MG/ML, 1ML IVPush PRN ×3 (08:05→17:22)
[2017-06-19] MEDS: OMEPRAZOLE 20 MG CAPSULE.DR PO SCH ×2 (08:10→17:12)
[2017-06-19] MEDS: SODIUM CHLORIDE 0.9% 1,000 ML IV SCH (08:11)
[2017-06-19] MEDS: METOPROLOL TARTRATE 50 MG TABLET PO SCH ×2 (08:11→17:12)
[2017-06-19] MEDS ORDERED: REGADENOSON 0.4 MG/5 ML SYRINGE ONE (09:42)
[2017-06-19] MEDS: ASPIRIN 81 MG TABLET EC PO SCH (11:04)
[2017-06-19] MEDS: MAGNESIUM OXIDE 400 MG TABLET PO SCH ×2 (11:04→20:16)
[2017-06-19] MEDS: ENOXAPARIN 80 MG/0.8 ML SQ SCH (11:04)
[2017-06-19] MEDS: AZITHROMYCIN 500 MG in SODIUM CHLORIDE 0.9% 250 ML IV SCH (11:04)
[2017-06-19] MEDS: HYDROcodone/APAP 5/325 TABLET PO PRN ×2 (11:39→20:16)
[2017-06-19] MEDS: SILVER SULF. CRM 1%, 50GM TP SCH ×2 (13:18→20:17)
[2017-06-19 15:07] VITALS: BP 133/81
[2017-06-19 19:34] VITALS: BP 144/77
[2017-06-19] MEDS: SIMVASTATIN 10 MG TABLET PO SCH (20:16)
[2017-06-20] MEDS: ENOXAPARIN 80 MG/0.8 ML SQ SCH (00:45)
[2017-06-20] MEDS: HYDROcodone/APAP 5/325 TABLET PO PRN ×3 (00:45→09:06)
[2017-06-20] MEDS: CEFTRIAXONE PMX 1GM/50ML 50 ML IV SCH (00:45)
[2017-06-20 02:22] VITALS: BP 146/77
[2017-06-20] MEDS: METOPROLOL TARTRATE 50 MG TABLET PO SCH (06:26)
[2017-06-20] MEDS: ALBUTEROL/IPRATROPIUM 2.5MG/0.5MG, 3 ML NPPB SCH ×2 (06:49→11:00)
[2017-06-20 07:09] VITALS: BP 145/86
[2017-06-20] MEDS: MAGNESIUM OXIDE 400 MG TABLET PO SCH (09:06)
[2017-06-20] MEDS: BEER 12 OZ CAN PO SCH ×2 (09:06→11:00)
[2017-06-20] MEDS: OMEPRAZOLE 20 MG CAPSULE.DR PO SCH (09:06)
[2017-06-20] MEDS: ASPIRIN 81 MG TABLET EC PO SCH (09:06)
[2017-06-20] MEDS: SILVER SULF. CRM 1%, 50GM TP SCH (09:07)
[2017-06-20] MEDS: AZITHROMYCIN 500 MG in SODIUM CHLORIDE 0.9% 250 ML IV SCH (09:07)
[2017-06-20] MEDS ORDERED: SILV25CR4 TP (10:44)
[2017-06-20] MEDS ORDERED: CEFD300C37 PO (10:44)
[2017-06-20] MEDS ORDERED: HYDR-3240 PO (10:44)
== END 2017-06-20 13:34 | disposition home or self-care (01) | DRG 280 ==
LOC: ED 21:51 → EDIP 21:57 → 5SO 22:38 → DCLOUNGE 06-20 12:55
PROVIDERS: ADMIT Internal Medicine; ATTEND Family Medicine
DX: I21.4 Non-ST elevation (NSTEMI) myocardial infarction (principal); J96.21 Acute and chronic respiratory failure with hypoxia; E43 Unspecified severe protein-calorie malnutrition; J44.0 Chronic obstructive pulmonary disease with (acute) lower respiratory infection; J44.1 Chronic obstructive pulmonary disease with (acute) exacerbation; T22.30XA Burn of third degree of shoulder and upper limb, except wrist and hand, unspecified site, initial encounter; I11.9 Hypertensive heart disease without heart failure; D75.89 Other specified diseases of blood and blood-forming organs; E78.00 Pure hypercholesterolemia, unspecified; X08.8XXA Exposure to other specified smoke, fire and flames, initial encounter; F17.200 Nicotine dependence, unspecified, uncomplicated; T23.102A Burn of first degree of left hand, unspecified site, initial encounter; Z86.73 Personal history of transient ischemic attack (TIA), and cerebral infarction without residual deficits; Z91.19 Patient's noncompliance with other medical treatment and regimen; Z68.25 Body mass index [BMI] 25.0-25.9, adult; Z99.81 Dependence on supplemental oxygen; Y93.89 Activity, other specified; Y92.89 Other specified places as the place of occurrence of the external cause; Y99.8 Other external cause status
CPT/HCPCS: 36415; 71010; 78452; 80048; 80053; 80061; 82040; 83605; 83735; 83880; 84145; 84484; 85025; 85610; 87040; 93005; 93017; 93306; 94640; 96365; 96375; J0456; J0696; J1650; J2785; J7620; A9502; C9898; J2060; J2270; J2930; J7030; J7050

== ENCOUNTER 2017-06-28 17:47 | Inpatient (IN) | payer MEDICAID ==
[~2017-06-28] VITALS: Ht 185.4 cm; Wt 87.4 kg
[~2017-06-28 17:47] MED LIST changes: +GABA600T2 PO; +HYDR-3240 PO; +SILV25CR6 TP
[2017-06-28] MEDS ORDERED: SODIUM CHLORIDE FLUSH 10ML SYR IVF ONE (18:00)
[2017-06-28] MEDS ORDERED: ALBUTEROL SULFATE 2.5 MG/3 ML NPPB ONE (18:00)
[2017-06-28 19:03] LABS: HEMATOCRIT 51.4 % (39.2-51.8); WHITE BLOOD COUNT 10.9 x10^3/uL (3.4-10)
[2017-06-28 19:13] LABS: ASPARTATE AMINO TRANSFERASE 48 U/L (15-37); BLOOD UREA NITROGEN 3 mg/dL (7-18)
[2017-06-28] MEDS ORDERED: ALBUTEROL/IPRATROPIUM 2.5MG/0.5MG, 3 ML ONE ×2 (19:13→19:56)
[2017-06-28 19:19] LABS: IS PT STATUS REG ER OR PRE ER? YES
[2017-06-28] MEDS ORDERED: ALBUTEROL/IPRATROPIUM 2.5MG/0.5MG, 3 ML NPPB ONE (20:00)
[2017-06-28] MEDS ORDERED: OMNIPAQUE 350 MG/ML, 100ML BOTTLE ONE (20:30)
[2017-06-28] MEDS ORDERED: ENOXAPARIN 80 MG/0.8 ML SQ ONE (21:30)
[2017-06-28] MEDS ORDERED: ENOXAPARIN 80 MG/0.8 ML ONE (21:39)
[2017-06-28] MEDS ORDERED: ONDANSETRON 2MG/ML, 2ML IVPush PRN (22:00)
[2017-06-28] MEDS ORDERED: LABETALOL 5MG/ML, 20ML IVPush PRN (22:00)
[2017-06-28] MEDS ORDERED: SODIUM CHLORIDE FLUSH 10ML SYR IVF PRN (22:00)
[2017-06-28] MEDS ORDERED: ONDANSETRON ODT 4 MG PO PRN (22:00)
[2017-06-28] MEDS ORDERED: ERGOCALCIFEROL 50,000 UNIT CAPSULE PO SCH (22:30)
[2017-06-28] MEDS ORDERED: ALBUTEROL/IPRATROPIUM 2.5MG/0.5MG, 3 ML NPPB PRN (22:30)
[2017-06-28] MEDS ORDERED: Enoxaparin 1 mg/kg protocol SQ SCH (22:30)
[2017-06-28 22:46] LABS: IS PT STATUS REG ER OR PRE ER? YES
[2017-06-28] MEDS: morphine SULFATE 10 MG/ML, 1ML IVPush PRN (23:18)
[2017-06-28] MEDS: SODIUM CHLORIDE 0.9% 1,000 ML IV SCH (23:19)
[2017-06-28 23:26] VITALS: BP 125/71
[2017-06-29] MEDS: POTASSIUM CHLORIDE 20 MEQ, MAGNESIUM SULFATE 2 GM, THIAMINE 100 MG, MVI ADULT 10 ML, FO... IV SCH ×2 (01:40→23:07)
[2017-06-29 02:15] VITALS: BP 115/72
[2017-06-29] MEDS: morphine SULFATE 10 MG/ML, 1ML IVPush PRN ×5 (02:26→20:44)
[2017-06-29 04:25] LABS: HEMATOCRIT 44.3 % (39.2-51.8); HEMOGLOBIN 14.9 g/dL (13.7-18.0); WHITE BLOOD COUNT 5.1 x10^3/uL (3.4-10)
[2017-06-29 04:35] LABS: ASPARTATE AMINO TRANSFERASE 31 U/L (15-37); BLOOD UREA NITROGEN 2 mg/dL (7-18)
[2017-06-29 04:41] LABS: IS PT STATUS REG ER OR PRE ER? NO
[2017-06-29] MEDS: METOPROLOL TARTRATE 50 MG TABLET PO SCH ×2 (06:38→17:21)
[2017-06-29] MEDS: ALBUTEROL/IPRATROPIUM 2.5MG/0.5MG, 3 ML NPPB SCH ×4 (07:00→19:30)
[2017-06-29] MEDS ORDERED: IPRATROPIUM 0.5 MG/2.5 ML INHA NPPB SCH (07:00)
[2017-06-29 08:21] VITALS: BP 143/90
[2017-06-29] MEDS: GABAPENTIN 400 MG CAPSULE PO SCH ×3 (08:54→20:45)
[2017-06-29] MEDS: FOLIC ACID 1 MG TABLET PO SCH (08:54)
[2017-06-29] MEDS: CITALOPRAM 20 MG TABLET PO SCH (08:54)
[2017-06-29] MEDS ORDERED: LORazepam 2 MG/ML, 1ML IV PRN (09:30)
[2017-06-29] MEDS ORDERED: LORazepam 0.5MG TABLET PO PRN (09:30)
[2017-06-29] MEDS ORDERED: LORazepam 1MG TABLET PO PRN ×3 (09:30)
[2017-06-29] MEDS: ENOXAPARIN 80 MG/0.8 ML SQ SCH ×2 (09:49→23:08)
[2017-06-29] MEDS: FLUTICASONE/VILANTEROL 100-25MCG/INH INH SCH (09:49)
[2017-06-29] MEDS: LORazepam 2 MG/ML, 1ML IV PRN ×4 (09:50→23:08)
[2017-06-29] MEDS ORDERED: SODIUM CHLORIDE 0.9%, 500ML IVBOLUS ONE (12:00)
[2017-06-29] MEDS: SODIUM CHLORIDE 0.9% 1,000 ML IV SCH ×3 (12:30→16:00)
[2017-06-29] MEDS: CHLORDIAZEPOXIDE 10 MG CAPSULE PO SCH ×3 (13:03→20:53)
[2017-06-29 14:12] VITALS: BP 126/77
[2017-06-29] MEDS ORDERED: ALBUTEROL SULFATE 2.5 MG/3 ML NPPB PRN (16:30)
[2017-06-29 19:31] VITALS: BP 128/82
[2017-06-29] MEDS ORDERED: MORPHINE SULFATE 4 MG/ML, 1ML ONE (20:40)
[2017-06-29] MEDS: SIMVASTATIN 10 MG TABLET PO SCH (20:45)
[2017-06-30 01:00] VITALS: BP 115/71
[2017-06-30] MEDS ORDERED: MORPHINE SULFATE 4 MG/ML, 1ML ONE ×7 (01:55→21:55)
[2017-06-30] MEDS: morphine SULFATE 10 MG/ML, 1ML IVPush PRN ×5 (01:59→17:43)
[2017-06-30 06:09] VITALS: BP 152/90
[2017-06-30] MEDS: METOPROLOL TARTRATE 50 MG TABLET PO SCH ×2 (06:10→17:39)
[2017-06-30] MEDS: SODIUM CHLORIDE 0.9% 1,000 ML IV SCH ×4 (08:00→23:56)
[2017-06-30] MEDS: FLUTICASONE/VILANTEROL 100-25MCG/INH INH SCH (10:02)
[2017-06-30] MEDS: FOLIC ACID 1 MG TABLET PO SCH (10:03)
[2017-06-30] MEDS: CITALOPRAM 20 MG TABLET PO SCH (10:03)
[2017-06-30] MEDS: ENOXAPARIN 80 MG/0.8 ML SQ SCH ×2 (10:03→22:43)
[2017-06-30] MEDS: GABAPENTIN 400 MG CAPSULE PO SCH ×3 (10:03→22:42)
[2017-06-30] MEDS: ALBUTEROL/IPRATROPIUM 2.5MG/0.5MG, 3 ML NPPB SCH ×4 (10:23→19:55)
[2017-06-30 12:13] VITALS: BP 108/68
[2017-06-30] MEDS: LORazepam 2 MG/ML, 1ML IV PRN ×5 (14:15→23:54)
[2017-06-30 19:21] VITALS: BP 154/90
[2017-06-30] MEDS: SIMVASTATIN 10 MG TABLET PO SCH (22:42)
[2017-07-01] MEDS: LORazepam 2 MG/ML, 1ML IV PRN ×2 (01:50→03:41)
[2017-07-01 01:59] VITALS: BP 135/88
[2017-07-01] MEDS ORDERED: HALOPERIDOL 5 MG/ML IV ONE (04:30)
[2017-07-01 05:55] LABS: BLOOD UREA NITROGEN 6 mg/dL (7-18)
[2017-07-01] MEDS: METOPROLOL TARTRATE 50 MG TABLET PO SCH ×2 (06:00→17:34)
[2017-07-01 06:21] VITALS: BP 128/80
[2017-07-01] MEDS: ALBUTEROL/IPRATROPIUM 2.5MG/0.5MG, 3 ML NPPB SCH ×4 (07:00→18:27)
[2017-07-01] MEDS ORDERED: FOLIC ACID 1 MG TABLET PO SCH (09:00)
[2017-07-01] MEDS: SODIUM CHLORIDE 0.9% 1,000 ML IV SCH (10:31)
[2017-07-01] MEDS: FLUTICASONE/VILANTEROL 100-25MCG/INH INH SCH (10:31)
[2017-07-01] MEDS: FOLIC ACID 1 MG TABLET PO SCH (10:33)
[2017-07-01] MEDS: ENOXAPARIN 80 MG/0.8 ML SQ SCH ×2 (10:33→23:53)
[2017-07-01] MEDS: MULTIVITAMIN 1 TABLET PO SCH (10:33)
[2017-07-01] MEDS: GABAPENTIN 400 MG CAPSULE PO SCH ×3 (10:33→23:53)
[2017-07-01] MEDS: CITALOPRAM 20 MG TABLET PO SCH (10:33)
[2017-07-01] MEDS: THIAMINE 100MG TABLET PO SCH (10:33)
[2017-07-01 12:29] VITALS: BP 142/84
[2017-07-01] MEDS: morphine SULFATE 10 MG/ML, 1ML IVPush PRN (17:35)
[2017-07-01 20:00] VITALS: BP 143/85
[2017-07-01] MEDS: SIMVASTATIN 10 MG TABLET PO SCH (23:53)
[2017-07-02] MEDS: morphine SULFATE 10 MG/ML, 1ML IVPush PRN ×4 (00:10→21:00)
[2017-07-02 02:00] VITALS: BP 145/83
[2017-07-02] MEDS: SODIUM CHLORIDE 0.9% 1,000 ML IV SCH ×3 (03:15→22:35)
[2017-07-02] MEDS: METOPROLOL TARTRATE 50 MG TABLET PO SCH ×2 (06:08→17:56)
[2017-07-02] MEDS: ALBUTEROL/IPRATROPIUM 2.5MG/0.5MG, 3 ML NPPB SCH ×4 (07:00→19:25)
[2017-07-02 07:31] VITALS: BP 146/82
[2017-07-02] MEDS: FLUTICASONE/VILANTEROL 100-25MCG/INH INH SCH (09:16)
[2017-07-02] MEDS: THIAMINE 100MG TABLET PO SCH (09:17)
[2017-07-02] MEDS: MULTIVITAMIN 1 TABLET PO SCH (09:17)
[2017-07-02] MEDS: GABAPENTIN 400 MG CAPSULE PO SCH ×3 (09:17→20:59)
[2017-07-02] MEDS: CITALOPRAM 20 MG TABLET PO SCH (09:17)
[2017-07-02] MEDS: FOLIC ACID 1 MG TABLET PO SCH (09:17)
[2017-07-02] MEDS: ENOXAPARIN 80 MG/0.8 ML SQ SCH ×2 (09:18→21:00)
[2017-07-02 13:19] VITALS: BP 128/79
[2017-07-02 17:54] VITALS: BP 148/83
[2017-07-02 18:49] VITALS: BP 154/84
[2017-07-02] MEDS ORDERED: MORPHINE SULFATE 4 MG/ML, 1ML ONE (20:55)
[2017-07-02] MEDS: SIMVASTATIN 10 MG TABLET PO SCH (20:59)
[2017-07-03] MEDS: morphine SULFATE 10 MG/ML, 1ML IVPush PRN (00:01)
[2017-07-03] MEDS ORDERED: MORPHINE SULFATE 4 MG/ML, 1ML ONE ×3 (00:06→06:23)
[2017-07-03 02:00] VITALS: BP 157/78
[2017-07-03] MEDS: METOPROLOL TARTRATE 50 MG TABLET PO SCH (06:00)
[2017-07-03] MEDS: ALBUTEROL/IPRATROPIUM 2.5MG/0.5MG, 3 ML NPPB SCH ×2 (07:00→11:00)
[2017-07-03] MEDS: THIAMINE 100MG TABLET PO SCH (09:00)
[2017-07-03] MEDS: FOLIC ACID 1 MG TABLET PO SCH (09:00)
[2017-07-03] MEDS: CITALOPRAM 20 MG TABLET PO SCH (09:00)
[2017-07-03] MEDS: FLUTICASONE/VILANTEROL 100-25MCG/INH INH SCH (09:00)
[2017-07-03] MEDS: MULTIVITAMIN 1 TABLET PO SCH (09:00)
[2017-07-03] MEDS: GABAPENTIN 400 MG CAPSULE PO SCH (09:00)
[2017-07-03] MEDS: SODIUM CHLORIDE 0.9% 1,000 ML IV SCH (09:30)
[2017-07-03] MEDS: ENOXAPARIN 80 MG/0.8 ML SQ SCH (09:59)
[2017-07-03] MEDS ORDERED: APIX5TAB PO (10:46)
[2017-07-03] MEDS ORDERED: APIXABAN 5 MG TABLET PO SCH (21:00)
== END 2017-07-03 11:50 | disposition home health service (06) | DRG 175 ==
LOC: ED 20:22 → EDIP 21:31 → 4WST 23:34 → 4EST 06-30 20:09 → 4WST 07-02 22:02
PROVIDERS: ADMIT Hospitalist; ATTEND Internal Medicine
DX: I26.99 Other pulmonary embolism without acute cor pulmonale (principal); J96.21 Acute and chronic respiratory failure with hypoxia; I50.32 Chronic diastolic (congestive) heart failure; I11.0 Hypertensive heart disease with heart failure; F10.239 Alcohol dependence with withdrawal, unspecified; W18.30XA Fall on same level, unspecified, initial encounter; I25.10 Atherosclerotic heart disease of native coronary artery without angina pectoris; I25.2 Old myocardial infarction; J44.9 Chronic obstructive pulmonary disease, unspecified; F17.210 Nicotine dependence, cigarettes, uncomplicated; D53.9 Nutritional anemia, unspecified; E78.00 Pure hypercholesterolemia, unspecified; E78.5 Hyperlipidemia, unspecified; Y90.9 Presence of alcohol in blood, level not specified; F32.9 Major depressive disorder, single episode, unspecified; K52.9 Noninfective gastroenteritis and colitis, unspecified; E66.9 Obesity, unspecified; R74.0 Nonspecific elevation of levels of transaminase and lactic acid dehydrogenase [LDH]; Z66 Do not resuscitate; Z79.01 Long term (current) use of anticoagulants; Z86.73 Personal history of transient ischemic attack (TIA), and cerebral infarction without residual deficits; Z91.14 Patient's other noncompliance with medication regimen; Z99.81 Dependence on supplemental oxygen; Z87.01 Personal history of pneumonia (recurrent); Z90.89 Acquired absence of other organs; Y93.89 Activity, other specified; Y92.89 Other specified places as the place of occurrence of the external cause; Y99.8 Other external cause status; Z68.25 Body mass index [BMI] 25.0-25.9, adult
CPT/HCPCS: 36415; 70450; 71010; 71275; 80048; 80053; 81003; 82607; 82746; 82962; 83605; 83735; 84100; 84145; 84439; 84484; 85025; 85379; 87040; 87070; 87205; 93005; 93970; 94640; 96372; J1650; J3411; J3475; J3480; J7042; J7613; J7620; Q9967; J1630; J2060; J2270; J7030; J7040; J7512

== ENCOUNTER 2017-08-02 09:48 | Inpatient (IN) | payer MEDICAID, OTHER ==
[~2017-08-02] VITALS: Ht 185.4 cm; Wt 91.4 kg
[~2017-08-02 09:48] MED LIST changes: +APIX5TAB PO; +PRED20TA PO
[2017-08-02] MEDS ORDERED: ONDANSETRON 2MG/ML, 2ML IVPush ONE (10:30)
[2017-08-02] MEDS ORDERED: SODIUM CHLORIDE FLUSH 10ML SYR IVF ONE (10:30)
[2017-08-02] MEDS ORDERED: SODIUM CHLORIDE 0.9% 1,000ML IVBOLUS ONE (10:30)
[2017-08-02] MEDS ORDERED: MAGNESIUM SULFATE 1 GM, THIAMINE 100 MG, FOLIC ACID 1 MG, MVI ADULT 10 ML in SODIUM CHL... IV ONE (10:30)
[2017-08-02] MEDS ORDERED: ONDANSETRON 2MG/ML, 2ML ONE (11:00)
[2017-08-02] MEDS ORDERED: LORazepam 2 MG/ML, 1ML ONE ×3 (11:01→16:54)
[2017-08-02] MEDS: LORazepam 2 MG/ML, 1ML IVPush PRN ×4 (11:09→17:00)
[2017-08-02 11:28] LABS: ASPARTATE AMINO TRANSFERASE 47 U/L (15-37); BLOOD UREA NITROGEN 1 mg/dL (7-18)
[2017-08-02 11:31] LABS: HEMATOCRIT 48.4 % (39.2-51.8); HEMOGLOBIN 16.7 g/dL (13.7-18.0); WHITE BLOOD COUNT 9.1 x10^3/uL (3.4-10)
[2017-08-02] MEDS ORDERED: SODIUM CHLORIDE 0.9%, 500ML IVBOLUS ONE (12:30)
[2017-08-02 12:31] LABS: IS PT STATUS REG ER OR PRE ER? YES
[2017-08-02] MEDS ORDERED: OMNIPAQUE 350 MG/ML, 100ML BOTTLE ONE (12:44)
[2017-08-02] MEDS ORDERED: methylPREDNISolone SOD SUCC 125 MG/2 ML IVP ONE (13:00)
[2017-08-02] MEDS ORDERED: methylPREDNISolone SOD SUCC 125 MG/2 ML ONE (13:53)
[2017-08-02] MEDS ORDERED: LORazepam 1MG TABLET ONE (13:53)
[2017-08-02] MEDS ORDERED: ENOXAPARIN 80 MG/0.8 ML SQ ONE (14:00)
[2017-08-02] MEDS ORDERED: ALBUTEROL/IPRATROPIUM 2.5MG/0.5MG, 3 ML ONE ×2 (15:06→22:08)
[2017-08-02] MEDS ORDERED: ENOXAPARIN 80 MG/0.8 ML ONE (15:17)
[2017-08-02] MEDS ORDERED: LABETALOL 5MG/ML, 20ML IVPush PRN ×2 (16:00→22:00)
[2017-08-02] MEDS ORDERED: ONDANSETRON ODT 4 MG PO PRN ×2 (16:00→22:00)
[2017-08-02] MEDS ORDERED: NICOTINE 14MG/24 HR PATCH.TD24 TD SCH (16:00)
[2017-08-02] MEDS ORDERED: NITROGLYCERIN 0.4 MG BOTTLE (25 TABS) SL PRN ×2 (16:00→22:00)
[2017-08-02] MEDS ORDERED: morphine SULFATE 10 MG/ML, 1ML IVPush PRN ×2 (16:00→22:00)
[2017-08-02] MEDS ORDERED: TRAZODONE 50MG TABLET PO PRN ×2 (16:00→21:00)
[2017-08-02] MEDS ORDERED: TEMAZEPAM 15 MG CAPSULE PO PRN (16:00)
[2017-08-02] MEDS ORDERED: HYDROcodone/APAP 5/325 TABLET PO PRN (16:00)
[2017-08-02] MEDS ORDERED: ENALAPRILAT 1.25 MG/ML, 2ML IVPush PRN ×2 (16:00→22:00)
[2017-08-02] MEDS ORDERED: GABAPENTIN 1200 MG PO SCH (16:00)
[2017-08-02] MEDS ORDERED: ONDANSETRON 2MG/ML, 2ML IVPush PRN ×2 (16:00→22:00)
[2017-08-02 16:20] LABS: IS PT STATUS REG ER OR PRE ER? YES
[2017-08-02] MEDS ORDERED: methylPREDNISolone SOD SUCC 40 MG/ML ONE (16:53)
[2017-08-02] MEDS ORDERED: NICOTINE 14MG/24 HR PATCH.TD24 ONE (16:54)
[2017-08-02] MEDS: methylPREDNISolone SOD SUCC 40 MG/ML IV SCH (17:00)
[2017-08-02] MEDS ORDERED: OMEPRAZOLE 20 MG CAPSULE.DR PO SCH (17:00)
[2017-08-02] MEDS ORDERED: POTASSIUM CHLORIDE 20 MEQ, MAGNESIUM SULFATE 2 GM, THIAMINE 100 MG, MVI ADULT 10 ML, FO... IV SCH (19:00)
[2017-08-02 19:15] VITALS: BP 131/81
[2017-08-02] MEDS ORDERED: ALBUTEROL/IPRATROPIUM 2.5MG/0.5MG, 3 ML NPPB SCH (20:00)
[2017-08-02] MEDS ORDERED: GABAPENTIN 400 MG CAPSULE PO SCH (21:00)
[2017-08-02] MEDS ORDERED: FAMOTIDINE 20 MG/2 ML IVPush SCH (21:00)
[2017-08-02] MEDS ORDERED: APIXABAN 5 MG TABLET PO SCH (21:00)
[2017-08-02] MEDS ORDERED: SIMVASTATIN 5 MG TABLET PO SCH (21:00)
[2017-08-02] MEDS: METOPROLOL TARTRATE 50 MG TABLET PO SCH (21:33)
[2017-08-02] MEDS: APIXABAN 5 MG TABLET PO SCH (21:41)
[2017-08-02] MEDS: GABAPENTIN 400 MG CAPSULE PO SCH (21:48)
[2017-08-02] MEDS: SIMVASTATIN 5 MG TABLET PO SCH (21:49)
[2017-08-02] MEDS: ALBUTEROL/IPRATROPIUM 2.5MG/0.5MG, 3 ML NPPB SCH (22:12)
[2017-08-02 22:29] LABS: IS PT STATUS REG ER OR PRE ER? NO
[2017-08-03 00:34] VITALS: BP 137/90
[2017-08-03] MEDS: METOPROLOL TARTRATE 50 MG TABLET PO SCH ×2 (05:33→21:33)
[2017-08-03] MEDS: methylPREDNISolone SOD SUCC 40 MG/ML IV SCH ×2 (05:33→22:26)
[2017-08-03] MEDS: HYDROcodone/APAP 5/325 TABLET PO PRN ×2 (05:33→21:32)
[2017-08-03 05:52] LABS: DAU SCREEN DISCLAIMER
[2017-08-03] MEDS: ALBUTEROL/IPRATROPIUM 2.5MG/0.5MG, 3 ML NPPB SCH ×4 (07:00→20:20)
[2017-08-03 07:32] VITALS: BP 154/92
[2017-08-03] MEDS ORDERED: CITALOPRAM 20 MG TABLET PO SCH (09:00)
[2017-08-03] MEDS: APIXABAN 5 MG TABLET PO SCH ×2 (09:12→21:33)
[2017-08-03] MEDS: CITALOPRAM 20 MG TABLET PO SCH (09:13)
[2017-08-03] MEDS: THIAMINE 100MG TABLET PO SCH (09:13)
[2017-08-03] MEDS: GABAPENTIN 400 MG CAPSULE PO SCH ×3 (09:13→21:33)
[2017-08-03] MEDS: OMEPRAZOLE 20 MG CAPSULE.DR PO SCH ×2 (09:13→17:09)
[2017-08-03] MEDS: AZITHROMYCIN 500 MG TABLET PO SCH (13:03)
[2017-08-03] MEDS: POTASSIUM CHLORIDE 20 MEQ, MAGNESIUM SULFATE 2 GM, THIAMINE 100 MG, MVI ADULT 10 ML, FO... IV SCH (13:47)
[2017-08-03 14:31] VITALS: BP 104/65
[2017-08-03] MEDS: NICOTINE 14MG/24 HR PATCH.TD24 TD SCH (17:10)
[2017-08-03 18:45] VITALS: BP 114/69
[2017-08-03] MEDS: SIMVASTATIN 5 MG TABLET PO SCH (21:32)
[2017-08-04 02:05] VITALS: BP 141/73
[2017-08-04] MEDS: HYDROcodone/APAP 5/325 TABLET PO PRN ×3 (06:40→20:32)
[2017-08-04] MEDS: ALBUTEROL/IPRATROPIUM 2.5MG/0.5MG, 3 ML NPPB SCH ×4 (07:15→19:30)
[2017-08-04 07:50] VITALS: BP 121/72
[2017-08-04] MEDS: OMEPRAZOLE 20 MG CAPSULE.DR PO SCH ×2 (09:12→16:24)
[2017-08-04] MEDS: CITALOPRAM 20 MG TABLET PO SCH (09:13)
[2017-08-04] MEDS: APIXABAN 5 MG TABLET PO SCH ×2 (09:13→20:29)
[2017-08-04] MEDS: METOPROLOL TARTRATE 50 MG TABLET PO SCH ×2 (09:13→20:29)
[2017-08-04] MEDS: GABAPENTIN 400 MG CAPSULE PO SCH ×3 (09:13→20:29)
[2017-08-04] MEDS: THIAMINE 100MG TABLET PO SCH (09:14)
[2017-08-04] MEDS: AZITHROMYCIN 500 MG TABLET PO SCH (09:14)
[2017-08-04 12:33] VITALS: BP 124/78
[2017-08-04] MEDS: POTASSIUM CHLORIDE 20 MEQ, MAGNESIUM SULFATE 2 GM, THIAMINE 100 MG, MVI ADULT 10 ML, FO... IV SCH (14:22)
[2017-08-04] MEDS: methylPREDNISolone SOD SUCC 40 MG/ML IV SCH (14:27)
[2017-08-04] MEDS ORDERED: MAGNESIUM SULFATE PMX 2GM/50ML 50 ML IV ONE (15:00)
[2017-08-04] MEDS: methylPREDNISolone SOD SUCC 125 MG/2 ML IV SCH ×2 (16:24→20:31)
[2017-08-04 19:06] VITALS: BP 132/82
[2017-08-04] MEDS: NICOTINE 14MG/24 HR PATCH.TD24 TD SCH (20:30)
[2017-08-04] MEDS: SIMVASTATIN 5 MG TABLET PO SCH (20:30)
[2017-08-05 02:08] VITALS: BP 161/86
[2017-08-05] MEDS: methylPREDNISolone SOD SUCC 125 MG/2 ML IV SCH ×4 (03:40→22:00)
[2017-08-05 05:09] LABS: BLOOD UREA NITROGEN 16 mg/dL (7-18)
[2017-08-05 06:55] VITALS: BP 156/85
[2017-08-05] MEDS: ALBUTEROL/IPRATROPIUM 2.5MG/0.5MG, 3 ML NPPB SCH ×4 (07:20→18:45)
[2017-08-05] MEDS: CITALOPRAM 20 MG TABLET PO SCH (08:08)
[2017-08-05] MEDS: OMEPRAZOLE 20 MG CAPSULE.DR PO SCH ×2 (08:08→16:50)
[2017-08-05] MEDS: AZITHROMYCIN 500 MG TABLET PO SCH (08:09)
[2017-08-05] MEDS: THIAMINE 100MG TABLET PO SCH (08:09)
[2017-08-05] MEDS: METOPROLOL TARTRATE 50 MG TABLET PO SCH ×2 (08:09→22:00)
[2017-08-05] MEDS: APIXABAN 5 MG TABLET PO SCH ×2 (08:09→22:00)
[2017-08-05] MEDS: GABAPENTIN 400 MG CAPSULE PO SCH ×3 (08:09→22:01)
[2017-08-05] MEDS: HYDROcodone/APAP 5/325 TABLET PO PRN ×3 (08:20→22:02)
[2017-08-05] MEDS ORDERED: THIAMINE 100MG TABLET PO SCH (09:00)
[2017-08-05 19:23] VITALS: BP 134/80
[2017-08-05] MEDS: NICOTINE 14MG/24 HR PATCH.TD24 TD SCH (21:57)
[2017-08-05] MEDS: SIMVASTATIN 5 MG TABLET PO SCH (22:01)
[2017-08-05] MEDS: TEMAZEPAM 15 MG CAPSULE PO PRN (22:11)
[2017-08-06 01:48] VITALS: BP 166/94
[2017-08-06] MEDS: TEMAZEPAM 15 MG CAPSULE PO PRN (01:54)
[2017-08-06] MEDS: methylPREDNISolone SOD SUCC 125 MG/2 ML IV SCH ×2 (04:14→09:14)
[2017-08-06] MEDS: ALBUTEROL/IPRATROPIUM 2.5MG/0.5MG, 3 ML NPPB SCH ×3 (06:45→15:15)
[2017-08-06] MEDS: CITALOPRAM 20 MG TABLET PO SCH (08:03)
[2017-08-06] MEDS: OMEPRAZOLE 20 MG CAPSULE.DR PO SCH (08:03)
[2017-08-06] MEDS: APIXABAN 5 MG TABLET PO SCH (08:04)
[2017-08-06] MEDS: METOPROLOL TARTRATE 50 MG TABLET PO SCH (08:04)
[2017-08-06] MEDS: THIAMINE 100MG TABLET PO SCH (08:05)
[2017-08-06] MEDS: AZITHROMYCIN 500 MG TABLET PO SCH (08:05)
[2017-08-06] MEDS: GABAPENTIN 400 MG CAPSULE PO SCH (08:05)
[2017-08-06 08:07] VITALS: BP 127/73
[2017-08-06] MEDS ORDERED: OMEP-110 PO (09:55)
[2017-08-06] MEDS ORDERED: NICO-486 TD (09:55)
[2017-08-06] MEDS ORDERED: AZIT500T5 PO (09:55)
[2017-08-06] MEDS ORDERED: ALBU18HF INH (09:55)
[2017-08-06] MEDS ORDERED: TIOT18CA INH (09:55)
[2017-08-06] MEDS ORDERED: APIX5TAB PO (09:55)
[2017-08-06 13:36] VITALS: BP 120/79
[2017-08-09] MEDS ORDERED: APIXABAN 5 MG TABLET PO SCH ×2 (21:00)
== END 2017-08-06 15:00 | disposition home or self-care (01) | DRG 175 ==
LOC: ED 11:02 → EDIP 14:26 → UNDOADMIN 14:26 → EDIP 18:05 → 4WST 18:05 → ED 19:22 → EDIP 19:51 → 4WST 20:17
PROVIDERS: ADMIT Internal Medicine; ATTEND Internal Medicine
DX: I26.99 Other pulmonary embolism without acute cor pulmonale (principal); J96.20 Acute and chronic respiratory failure, unspecified whether with hypoxia or hypercapnia; E87.2 Acidosis; I50.32 Chronic diastolic (congestive) heart failure; J44.1 Chronic obstructive pulmonary disease with (acute) exacerbation; I11.0 Hypertensive heart disease with heart failure; K70.10 Alcoholic hepatitis without ascites; E83.42 Hypomagnesemia; E86.0 Dehydration; E78.00 Pure hypercholesterolemia, unspecified; Z66 Do not resuscitate; F32.9 Major depressive disorder, single episode, unspecified; M19.90 Unspecified osteoarthritis, unspecified site; F17.210 Nicotine dependence, cigarettes, uncomplicated; K57.30 Diverticulosis of large intestine without perforation or abscess without bleeding; K76.0 Fatty (change of) liver, not elsewhere classified; N62 Hypertrophy of breast; Z91.14 Patient's other noncompliance with medication regimen; Z86.73 Personal history of transient ischemic attack (TIA), and cerebral infarction without residual deficits; I25.2 Old myocardial infarction; Z91.19 Patient's noncompliance with other medical treatment and regimen; Z99.81 Dependence on supplemental oxygen; Z86.711 Personal history of pulmonary embolism
CPT/HCPCS: 36415; 71010; 71275; 74177; 80048; 80053; 80307; 81003; 83605; 83690; 83735; 83880; 84100; 84145; 84484; 85025; 85610; 87040; 87324; 89055; 94640; 96372; 96374; 96375; 96376; J1650; J2405; J3411; J3475; J3480; J7042; J7620; Q9967; G0479; J2060; J2920; J2930; J7030; J7040

== ENCOUNTER 2017-08-13 09:34 | Inpatient (IN) | payer MEDICAID ==
[~2017-08-13] VITALS: Ht 185.4 cm; Wt 88.8 kg
[~2017-08-13 09:34] MED LIST changes: +ALBU18HF INH; +AZIT500T5 PO; +NICO-486 TD
[2017-08-13] MEDS ORDERED: methylPREDNISolone SOD SUCC 125 MG/2 ML ONE (10:14)
[2017-08-13] MEDS ORDERED: KETOROLAC 30 MG/1 ML ONE (10:14)
[2017-08-13] MEDS ORDERED: ONDANSETRON 2MG/ML, 2ML ONE (10:14)
[2017-08-13] MEDS ORDERED: SODIUM CHLORIDE FLUSH 10ML SYR IVF ONE (10:30)
[2017-08-13] MEDS ORDERED: ONDANSETRON 2MG/ML, 2ML IVP ONE (10:30)
[2017-08-13] MEDS ORDERED: SODIUM CHLORIDE 0.9% 1,000ML IVBOLUS ONE ×2 (10:30→12:30)
[2017-08-13] MEDS ORDERED: KETOROLAC 30 MG/1 ML IVPush ONE (10:30)
[2017-08-13] MEDS ORDERED: methylPREDNISolone SOD SUCC 125 MG/2 ML IVP ONE (10:30)
[2017-08-13] MEDS ORDERED: ALBUTEROL/IPRATROPIUM 2.5MG/0.5MG, 3 ML NPPB ONE (10:30)
[2017-08-13 10:35] LABS: HEMATOCRIT 47.9 % (39.2-51.8); HEMOGLOBIN 16.5 g/dL (13.7-18.0); WHITE BLOOD COUNT 9.5 x10^3/uL (3.4-10)
[2017-08-13 10:48] LABS: ASPARTATE AMINO TRANSFERASE 42 U/L (15-37); BLOOD UREA NITROGEN 5 mg/dL (7-18)
[2017-08-13 10:53] LABS: IS PT STATUS REG ER OR PRE ER? YES
[2017-08-13] MEDS ORDERED: POTASSIUM CHLORIDE 20 MEQ TAB.ER.PRT PO ONE (11:00)
[2017-08-13 11:17] LABS: DIFF TOTAL CELLS COUNTED 100 CELL DIFF
[2017-08-13 11:32] LABS: VERIFY COUNTS? YES
[2017-08-13] MEDS ORDERED: POTASSIUM CHLORIDE 20 MEQ TAB.ER.PRT ONE (11:41)
[2017-08-13] MEDS ORDERED: ALBUTEROL/IPRATROPIUM 2.5MG/0.5MG, 3 ML ONE ×2 (12:05→15:39)
[2017-08-13] MEDS ORDERED: LEVOFLOXACIN/PMX 750MG/150ML 150 ML ONE (12:18)
[2017-08-13] MEDS ORDERED: LEVOFLOXACIN/PMX 750MG/150ML 150 ML IV ONE (12:30)
[2017-08-13 12:48] LABS: RAPID INFLUENZA A Negative (Negative); RAPID INFLUENZA B Negative (Negative)
[2017-08-13] MEDS ORDERED: ONDANSETRON ODT 4 MG PO PRN (13:00)
[2017-08-13] MEDS ORDERED: TEMPLATE NON-FORMULARY MED. (Albuterol Sulfate (Ventolin Hfa) 1 PUFF) INH PRN ×2 (13:00→16:06)
[2017-08-13] MEDS ORDERED: LORazepam 0.5MG TABLET PO PRN (13:00)
[2017-08-13] MEDS ORDERED: LORazepam 2 MG/ML, 1ML IV PRN ×5 (13:00)
[2017-08-13] MEDS: methylPREDNISolone SOD SUCC 125 MG/2 ML IVPush SCH ×3 (13:00→22:35)
[2017-08-13] MEDS ORDERED: ONDANSETRON 2MG/ML, 2ML IVPush PRN (13:00)
[2017-08-13] MEDS: NICOTINE 14MG/24 HR PATCH.TD24 TD SCH (13:00)
[2017-08-13] MEDS ORDERED: LORazepam 1MG TABLET PO PRN ×2 (13:00)
[2017-08-13] MEDS ORDERED: LABETALOL 5MG/ML, 20ML IVPush PRN (13:00)
[2017-08-13] MEDS ORDERED: ENALAPRILAT 1.25 MG/ML, 2ML IVPush PRN (13:00)
[2017-08-13] MEDS ORDERED: hydrALAzine 20 MG/ML, 1ML IVPush PRN (13:00)
[2017-08-13] MEDS ORDERED: DIPHENHYDRAMINE 25 MG CAPSULE PO PRN (13:00)
[2017-08-13] MEDS ORDERED: ALBUTEROL/IPRATROPIUM 2.5MG/0.5MG, 3 ML NPPB PRN (14:00)
[2017-08-13] MEDS: ALBUTEROL/IPRATROPIUM 2.5MG/0.5MG, 3 ML NPPB SCH ×2 (15:00→20:15)
[2017-08-13] MEDS: METOPROLOL TARTRATE 50 MG TABLET PO SCH (16:59)
[2017-08-13 17:04] VITALS: BP 148/89
[2017-08-13] MEDS: POTASSIUM CHLORIDE 20 MEQ, MAGNESIUM SULFATE 2 GM, THIAMINE 100 MG, MVI ADULT 10 ML, FO... IV SCH ×2 (18:03→23:13)
[2017-08-13 18:18] VITALS: BP 129/90
[2017-08-13] MEDS: LORazepam 1MG TABLET PO PRN ×2 (18:25→22:35)
[2017-08-13] MEDS: FAMOTIDINE 20 MG TABLET PO SCH (20:48)
[2017-08-13] MEDS: SIMVASTATIN 10 MG TABLET PO SCH (20:48)
[2017-08-13] MEDS: APIXABAN 5 MG TABLET PO SCH (20:48)
[2017-08-14 00:25] VITALS: BP 167/109
[2017-08-14] MEDS: TRAZODONE 50MG TABLET PO PRN (00:33)
[2017-08-14] MEDS: LORazepam 1MG TABLET PO PRN ×5 (03:01→21:22)
[2017-08-14 05:16] VITALS: BP 150/91
[2017-08-14] MEDS: methylPREDNISolone SOD SUCC 125 MG/2 ML IVPush SCH ×3 (05:17→17:26)
[2017-08-14] MEDS: METOPROLOL TARTRATE 50 MG TABLET PO SCH ×2 (05:17→18:30)
[2017-08-14 05:43] LABS: HEMATOCRIT 42.1 % (39.2-51.8); HEMOGLOBIN 14.6 g/dL (13.7-18.0); WHITE BLOOD COUNT 4.5 x10^3/uL (3.4-10)
[2017-08-14 06:13] LABS: ASPARTATE AMINO TRANSFERASE 24 U/L (15-37); BLOOD UREA NITROGEN 6 mg/dL (7-18)
[2017-08-14] MEDS: ALBUTEROL/IPRATROPIUM 2.5MG/0.5MG, 3 ML NPPB SCH ×4 (07:45→20:56)
[2017-08-14] MEDS: MULTIVITAMINS/MINERALS TABLET PO SCH (08:05)
[2017-08-14] MEDS: FAMOTIDINE 20 MG TABLET PO SCH ×2 (08:05→21:14)
[2017-08-14] MEDS: APIXABAN 5 MG TABLET PO SCH ×2 (08:05→21:14)
[2017-08-14] MEDS: CITALOPRAM 20 MG TABLET PO SCH (08:05)
[2017-08-14 08:40] VITALS: BP 151/83
[2017-08-14] MEDS ORDERED: TEMPLATE NON-FORMULARY MED. (Tiotropium Bromide** (Spiriva**) 18 MCG) INH SCH (09:00)
[2017-08-14] MEDS ORDERED: POTASSIUM PHOSPHATE 22 MEQ in SODIUM CHLORIDE 0.9% 500 ML IV ONE (12:00)
[2017-08-14] MEDS: FLUTICASONE/VILANTEROL 100-25MCG/INH INH SCH (12:38)
[2017-08-14] MEDS: LEVOFLOXACIN 750 MG TABLET PO SCH (12:38)
[2017-08-14] MEDS: NICOTINE 14MG/24 HR PATCH.TD24 TD SCH (12:39)
[2017-08-14] MEDS: LISINOPRIL 10 MG TABLET PO SCH (12:39)
[2017-08-14 13:01] VITALS: BP 125/70
[2017-08-14 20:31] VITALS: BP 128/64
[2017-08-14] MEDS: SIMVASTATIN 10 MG TABLET PO SCH (21:14)
[2017-08-15] MEDS: TRAZODONE 50MG TABLET PO PRN (00:02)
[2017-08-15 01:42] VITALS: BP 141/87
[2017-08-15] MEDS: LORazepam 1MG TABLET PO PRN ×4 (01:42→13:32)
[2017-08-15] MEDS: methylPREDNISolone SOD SUCC 125 MG/2 ML IVPush SCH ×2 (03:48→10:46)
[2017-08-15] MEDS: POTASSIUM CHLORIDE 20 MEQ, MAGNESIUM SULFATE 2 GM, THIAMINE 100 MG, MVI ADULT 10 ML, FO... IV SCH (03:48)
[2017-08-15] MEDS: METOPROLOL TARTRATE 50 MG TABLET PO SCH (05:58)
[2017-08-15 06:50] VITALS: BP 136/77
[2017-08-15] MEDS: ALBUTEROL/IPRATROPIUM 2.5MG/0.5MG, 3 ML NPPB SCH ×3 (07:00→14:25)
[2017-08-15] MEDS ORDERED: POTASSIUM PHOSPHATE 22 MEQ in SODIUM CHLORIDE 0.9% 500 ML IV ONE (07:30)
[2017-08-15] MEDS: CITALOPRAM 20 MG TABLET PO SCH (09:00)
[2017-08-15] MEDS: APIXABAN 5 MG TABLET PO SCH (09:00)
[2017-08-15] MEDS: LEVOFLOXACIN 750 MG TABLET PO SCH (09:01)
[2017-08-15] MEDS: LISINOPRIL 10 MG TABLET PO SCH (09:01)
[2017-08-15] MEDS: MULTIVITAMINS/MINERALS TABLET PO SCH (09:01)
[2017-08-15] MEDS: FAMOTIDINE 20 MG TABLET PO SCH (09:01)
[2017-08-15] MEDS: FLUTICASONE/VILANTEROL 100-25MCG/INH INH SCH (09:02)
[2017-08-15 12:51] VITALS: BP 115/68
[2017-08-15] MEDS: NICOTINE 14MG/24 HR PATCH.TD24 TD SCH (13:16)
== END 2017-08-15 17:49 | disposition left against medical advice (07) | DRG 871 ==
LOC: ED 10:54 → EDIP 12:25 → 4WST 15:54
PROVIDERS: ADMIT Hospitalist; ATTEND Hospitalist
DX: A41.9 Sepsis, unspecified organism (principal); J96.20 Acute and chronic respiratory failure, unspecified whether with hypoxia or hypercapnia; R56.9 Unspecified convulsions; S09.90XA Unspecified injury of head, initial encounter; J44.0 Chronic obstructive pulmonary disease with (acute) lower respiratory infection; E83.39 Other disorders of phosphorus metabolism; F10.239 Alcohol dependence with withdrawal, unspecified; J44.1 Chronic obstructive pulmonary disease with (acute) exacerbation; Z66 Do not resuscitate; W19.XXXA Unspecified fall, initial encounter; E78.00 Pure hypercholesterolemia, unspecified; E87.6 Hypokalemia; F17.210 Nicotine dependence, cigarettes, uncomplicated; I10 Essential (primary) hypertension; J20.9 Acute bronchitis, unspecified; R65.20 Severe sepsis without septic shock; Y92.009 Unspecified place in unspecified non-institutional (private) residence as the place of occurrence of the external cause; Z86.711 Personal history of pulmonary embolism; Z86.73 Personal history of transient ischemic attack (TIA), and cerebral infarction without residual deficits; Z91.14 Patient's other noncompliance with medication regimen; Z91.19 Patient's noncompliance with other medical treatment and regimen; Z99.81 Dependence on supplemental oxygen; I25.2 Old myocardial infarction
CPT/HCPCS: 36415; 70450; 71010; 80053; 81003; 83605; 83735; 83880; 84100; 84484; 85025; 87040; 87400; 93005; 94640; 96361; 96365; 96366; 96375; J1885; J1956; J2405; J3411; J3475; J3480; J7042; J7620; J0360; J2930; J7030; J7040

== ENCOUNTER 2017-08-16 09:26 | Inpatient (IN) | payer MEDICAID ==
[~2017-08-16] VITALS: Ht 185.4 cm; Wt 86.8 kg
[2017-08-16] MEDS ORDERED: ALBUTEROL/IPRATROPIUM 2.5MG/0.5MG, 3 ML ONE ×2 (09:58→16:07)
[2017-08-16] MEDS ORDERED: SODIUM CHLORIDE FLUSH 10ML SYR IVF ONE (10:00)
[2017-08-16] MEDS ORDERED: IPRATROPIUM 0.5 MG/2.5 ML INHA NPPB ONE (10:00)
[2017-08-16] MEDS ORDERED: ASPIRIN 81 MG TABLET CHEW PO ONE (10:00)
[2017-08-16] MEDS ORDERED: ALBUTEROL SULFATE 2.5 MG/3 ML NPPB SCH (10:00)
[2017-08-16] MEDS ORDERED: ASPIRIN 81 MG TABLET CHEW ONE (10:06)
[2017-08-16 10:10] LABS: HEMATOCRIT 40.8 % (39.2-51.8); WHITE BLOOD COUNT 15.9 x10^3/uL (3.4-10)
[2017-08-16 10:18] LABS: BLOOD UREA NITROGEN 16 mg/dL (7-18)
[2017-08-16 10:32] LABS: IS PT STATUS REG ER OR PRE ER? YES
[2017-08-16] MEDS ORDERED: ALBUTEROL/IPRATROPIUM 2.5MG/0.5MG, 3 ML NPPB SCH (11:00)
[2017-08-16] MEDS ORDERED: Enoxaparin 1 mg/kg protocol SQ ONE (11:00)
[2017-08-16] MEDS ORDERED: POTASSIUM CHLORIDE 20 MEQ TAB.ER.PRT PO ONE (11:30)
[2017-08-16] MEDS ORDERED: ENOXAPARIN 100 MG/ML SQ ONE (11:30)
[2017-08-16] MEDS ORDERED: ACETAMINOPHEN 325 MG TABLET PO PRN (13:30)
[2017-08-16] MEDS ORDERED: ONDANSETRON 2MG/ML, 2ML IVPush PRN (13:30)
[2017-08-16] MEDS ORDERED: BISACODYL 10 MG SUPP PR PRN (13:30)
[2017-08-16] MEDS ORDERED: DOCUSATE 100 MG CAPSULE PO PRN (13:30)
[2017-08-16] MEDS ORDERED: LORazepam 1MG TABLET PO PRN ×4 (13:30)
[2017-08-16] MEDS ORDERED: TRAZODONE 50MG TABLET PO PRN (13:30)
[2017-08-16] MEDS ORDERED: LORazepam 0.5MG TABLET PO PRN (13:30)
[2017-08-16] MEDS ORDERED: POLYETHYLENE GLYCOL 17 GM PACKET PO PRN (13:30)
[2017-08-16 13:57] LABS: IS PT STATUS REG ER OR PRE ER? YES
[2017-08-16] MEDS ORDERED: ONDANSETRON 2MG/ML, 2ML ONE (14:27)
[2017-08-16] MEDS ORDERED: POTASSIUM CHLORIDE 20 MEQ TAB.ER.PRT ONE (14:34)
[2017-08-16 15:31] VITALS: BP 116/81
[2017-08-16 15:54] VITALS: BP 116/81
[2017-08-16] MEDS: NICOTINE 14MG/24 HR PATCH.TD24 TD SCH (16:00)
[2017-08-16] MEDS: ALBUTEROL/IPRATROPIUM 2.5MG/0.5MG, 3 ML NPPB SCH ×2 (16:08→19:27)
[2017-08-16] MEDS ORDERED: THIAMINE 200 MG in SODIUM CHLORIDE 0.9% 50 ML IV ONE (17:00)
[2017-08-16] MEDS: POTASSIUM CHLORIDE 20 MEQ TAB.ER.PRT PO SCH (17:25)
[2017-08-16] MEDS: methylPREDNISolone SOD SUCC 125 MG/2 ML IVPush SCH ×2 (17:26→21:45)
[2017-08-16] MEDS: FUROSEMIDE 20 MG/2 ML IV SCH (17:26)
[2017-08-16] MEDS: GABAPENTIN 400 MG CAPSULE PO SCH ×2 (17:26→21:44)
[2017-08-16] MEDS: METOPROLOL TARTRATE 50 MG TABLET PO SCH (18:42)
[2017-08-16 18:59] VITALS: BP 104/71
[2017-08-16 19:22] LABS: IS PT STATUS REG ER OR PRE ER? NO
[2017-08-16] MEDS: CHLORDIAZEPOXIDE 10 MG CAPSULE PO SCH (21:44)
[2017-08-16] MEDS: SIMVASTATIN 10 MG TABLET PO SCH (21:44)
[2017-08-16] MEDS: APIXABAN 5 MG TABLET PO SCH (21:44)
[2017-08-17 00:26] VITALS: BP 122/73
[2017-08-17] MEDS: METOPROLOL TARTRATE 50 MG TABLET PO SCH ×2 (05:05→17:08)
[2017-08-17] MEDS: methylPREDNISolone SOD SUCC 125 MG/2 ML IVPush SCH ×4 (05:05→20:17)
[2017-08-17 05:29] LABS: HEMATOCRIT 40.8 % (39.2-51.8); HEMOGLOBIN 13.9 g/dL (13.7-18.0); WHITE BLOOD COUNT 5.6 x10^3/uL (3.4-10)
[2017-08-17 05:35] LABS: BLOOD UREA NITROGEN 14 mg/dL (7-18)
[2017-08-17 05:48] LABS: ASPARTATE AMINO TRANSFERASE 13 U/L (15-37)
[2017-08-17 07:00] VITALS: BP 137/79
[2017-08-17] MEDS: ALBUTEROL/IPRATROPIUM 2.5MG/0.5MG, 3 ML NPPB SCH ×4 (07:20→20:00)
[2017-08-17] MEDS: FUROSEMIDE 20 MG/2 ML IV SCH ×2 (08:20→17:08)
[2017-08-17] MEDS: THIAMINE 100 MG in SODIUM CHLORIDE 0.9% 50 ML IV SCH (08:20)
[2017-08-17] MEDS: CITALOPRAM 20 MG TABLET PO SCH (08:21)
[2017-08-17] MEDS: FOLIC ACID 1 MG TABLET PO SCH (08:21)
[2017-08-17] MEDS: CHLORDIAZEPOXIDE 10 MG CAPSULE PO SCH (08:21)
[2017-08-17] MEDS: GABAPENTIN 400 MG CAPSULE PO SCH ×3 (08:21→20:17)
[2017-08-17] MEDS: NICOTINE 14MG/24 HR PATCH.TD24 TD SCH (08:21)
[2017-08-17] MEDS: APIXABAN 5 MG TABLET PO SCH ×2 (08:21→20:17)
[2017-08-17] MEDS: POTASSIUM CHLORIDE 20 MEQ TAB.ER.PRT PO SCH ×2 (08:21→17:08)
[2017-08-17] MEDS: MULTIVITAMIN 1 TABLET PO SCH (08:21)
[2017-08-17 12:50] VITALS: BP 106/71
[2017-08-17 17:07] VITALS: BP 120/75
[2017-08-17 18:57] VITALS: BP 110/69
[2017-08-17] MEDS: SIMVASTATIN 10 MG TABLET PO SCH (20:17)
[2017-08-17] MEDS: CHLORDIAZEPOXIDE 25 MG CAPSULE PO SCH (21:08)
[2017-08-18 00:36] VITALS: BP 114/75
[2017-08-18] MEDS: methylPREDNISolone SOD SUCC 125 MG/2 ML IVPush SCH ×4 (03:12→21:23)
[2017-08-18 04:17] LABS: HEMATOCRIT 40.1 % (39.2-51.8); HEMOGLOBIN 13.6 g/dL (13.7-18.0); WHITE BLOOD COUNT 12.8 x10^3/uL (3.4-10)
[2017-08-18 04:26] LABS: BLOOD UREA NITROGEN 24 mg/dL (7-18)
[2017-08-18] MEDS: METOPROLOL TARTRATE 50 MG TABLET PO SCH ×2 (05:11→17:16)
[2017-08-18] MEDS: CHLORDIAZEPOXIDE 25 MG CAPSULE PO SCH (05:11)
[2017-08-18 07:19] VITALS: BP 144/85
[2017-08-18] MEDS: ALBUTEROL/IPRATROPIUM 2.5MG/0.5MG, 3 ML NPPB SCH ×4 (07:56→20:45)
[2017-08-18] MEDS: POTASSIUM CHLORIDE 20 MEQ TAB.ER.PRT PO SCH ×2 (08:53→16:07)
[2017-08-18] MEDS: FUROSEMIDE 20 MG/2 ML IV SCH (08:53)
[2017-08-18] MEDS: APIXABAN 5 MG TABLET PO SCH ×2 (08:55→21:23)
[2017-08-18] MEDS: MULTIVITAMIN 1 TABLET PO SCH (08:55)
[2017-08-18] MEDS: CITALOPRAM 20 MG TABLET PO SCH (08:55)
[2017-08-18] MEDS: GABAPENTIN 400 MG CAPSULE PO SCH ×3 (08:55→21:31)
[2017-08-18] MEDS: FOLIC ACID 1 MG TABLET PO SCH (08:55)
[2017-08-18] MEDS: NICOTINE 14MG/24 HR PATCH.TD24 TD SCH (08:55)
[2017-08-18] MEDS: THIAMINE 100 MG in SODIUM CHLORIDE 0.9% 50 ML IV SCH (09:25)
[2017-08-18 14:00] VITALS: BP 110/71
[2017-08-18] MEDS: FUROSEMIDE 20 MG TABLET PO SCH (17:17)
[2017-08-18 18:35] VITALS: BP 139/89
[2017-08-18] MEDS ORDERED: ACETAMINOPHEN 325 MG TABLET PO PRN (19:00)
[2017-08-18] MEDS ORDERED: DOCUSATE 100 MG CAPSULE PO PRN (19:00)
[2017-08-18] MEDS ORDERED: POLYETHYLENE GLYCOL 17 GM PACKET PO PRN (19:00)
[2017-08-18] MEDS ORDERED: BISACODYL 10 MG SUPP PR PRN (19:00)
[2017-08-18] MEDS: SIMVASTATIN 10 MG TABLET PO SCH (21:23)
[2017-08-19 02:26] VITALS: BP 111/68
[2017-08-19] MEDS: methylPREDNISolone SOD SUCC 125 MG/2 ML IVPush SCH ×3 (03:07→14:29)
[2017-08-19 05:00] LABS: HEMATOCRIT 39.8 % (39.2-51.8); HEMOGLOBIN 13.6 g/dL (13.7-18.0); WHITE BLOOD COUNT 11.3 x10^3/uL (3.4-10)
[2017-08-19 05:10] LABS: BLOOD UREA NITROGEN 26 mg/dL (7-18)
[2017-08-19] MEDS: METOPROLOL TARTRATE 50 MG TABLET PO SCH ×2 (05:30→16:58)
[2017-08-19] MEDS: ALBUTEROL/IPRATROPIUM 2.5MG/0.5MG, 3 ML NPPB SCH ×3 (06:30→14:25)
[2017-08-19] MEDS: NICOTINE 14MG/24 HR PATCH.TD24 TD SCH (07:56)
[2017-08-19] MEDS: MULTIVITAMIN 1 TABLET PO SCH (07:56)
[2017-08-19] MEDS: FOLIC ACID 1 MG TABLET PO SCH (07:56)
[2017-08-19] MEDS: CITALOPRAM 20 MG TABLET PO SCH (07:56)
[2017-08-19] MEDS: POTASSIUM CHLORIDE 20 MEQ TAB.ER.PRT PO SCH ×2 (07:56→16:51)
[2017-08-19] MEDS: APIXABAN 5 MG TABLET PO SCH (07:56)
[2017-08-19] MEDS: GABAPENTIN 400 MG CAPSULE PO SCH ×2 (07:56→16:51)
[2017-08-19] MEDS: FUROSEMIDE 20 MG TABLET PO SCH ×2 (07:56→16:51)
[2017-08-19] MEDS: THIAMINE 100 MG in SODIUM CHLORIDE 0.9% 50 ML IV SCH (09:27)
[2017-08-19 09:28] VITALS: BP 121/73
[2017-08-19 14:41] VITALS: BP 112/70
[2017-08-19] MEDS ORDERED: FURO-93 PO (15:59)
[2017-08-19] MEDS ORDERED: PRED10TA PO (15:59)
[2017-08-19] MEDS ORDERED: THIA100T6 PO (15:59)
[2017-08-19] MEDS ORDERED: MULT1TAB60 PO (15:59)
[2017-08-19] MEDS ORDERED: POTA10TA5 PO (15:59)
[2017-08-19] MEDS ORDERED: FOLI-17 PO (15:59)
[2017-08-19] MEDS ORDERED: APIX5TAB PO (16:07)
== END 2017-08-19 17:41 | disposition home or self-care (01) | DRG 291 ==
LOC: ED 09:49 → EDIP 11:21 → 4WST 15:33
PROVIDERS: ADMIT Hospitalist; ATTEND Internal Medicine
DX: I11.0 Hypertensive heart disease with heart failure (principal); I26.99 Other pulmonary embolism without acute cor pulmonale; D68.69 Other thrombophilia; J44.1 Chronic obstructive pulmonary disease with (acute) exacerbation; J96.10 Chronic respiratory failure, unspecified whether with hypoxia or hypercapnia; F10.239 Alcohol dependence with withdrawal, unspecified; I27.82 Chronic pulmonary embolism; J98.11 Atelectasis; I50.33 Acute on chronic diastolic (congestive) heart failure; D72.829 Elevated white blood cell count, unspecified; D75.89 Other specified diseases of blood and blood-forming organs; E78.00 Pure hypercholesterolemia, unspecified; E78.5 Hyperlipidemia, unspecified; E87.6 Hypokalemia; F17.210 Nicotine dependence, cigarettes, uncomplicated; F32.9 Major depressive disorder, single episode, unspecified; Z86.73 Personal history of transient ischemic attack (TIA), and cerebral infarction without residual deficits; Z91.14 Patient's other noncompliance with medication regimen; Z99.81 Dependence on supplemental oxygen
CPT/HCPCS: 36415; 70450; 71020; 80048; 80053; 82040; 83735; 83880; 84100; 84439; 84443; 84484; 85025; 93005; 94640; 96372; J1650; J3411; J7620; J1940; J2930; J7512

== ENCOUNTER 2017-08-27 04:00 | Emergency (ER) | payer MEDICAID ==
[~2017-08-27] VITALS: Ht 185.4 cm; Wt 85.0 kg
[~2017-08-27 04:00] MED LIST changes: +FURO-93 PO; +MULT1TAB60 PO; +POTA10TA5 PO; +PRED10TA PO; +THIA100T6 PO
[2017-08-27] MEDS ORDERED: SODIUM CHLORIDE 0.9% 1,000 ML IV ONE (04:39)
[2017-08-27] MEDS ORDERED: SODIUM CHLORIDE FLUSH 10ML SYR IVF ONE (05:00)
[2017-08-27 05:03] LABS: HEMATOCRIT 50.3 % (39.2-51.8); HEMOGLOBIN 17.1 g/dL (13.7-18.0); WHITE BLOOD COUNT 15.9 x10^3/uL (3.4-10)
[2017-08-27 05:13] LABS: BLOOD UREA NITROGEN 5 mg/dL (7-18)
[2017-08-27 05:14] LABS: ASPARTATE AMINO TRANSFERASE 32 U/L (15-37)
[2017-08-27 05:20] LABS: IS PT STATUS REG ER OR PRE ER? YES
[2017-08-27] MEDS ORDERED: ALBUTEROL/IPRATROPIUM 2.5MG/0.5MG, 3 ML NPPB ONE (05:30)
[2017-08-27] MEDS ORDERED: OMNIPAQUE 350 MG/ML, 100ML BOTTLE ONE (05:35)
[2017-08-27] MEDS ORDERED: ALBUTEROL/IPRATROPIUM 2.5MG/0.5MG, 3 ML ONE (06:19)
[2017-08-27] MEDS ORDERED: CEFTRIAXONE PMX 1GM/50ML 50 ML ONE (06:59)
[2017-08-27] MEDS ORDERED: CEFTRIAXONE PMX 1GM/50ML 50 ML IV ONE (07:00)
[2017-08-27] MEDS ORDERED: CHLORDIAZEPOXIDE 25 MG CAPSULE PO ONE (07:00)
[2017-08-27 08:42] VITALS: BP 121/69
== END 2017-08-27 09:07 | disposition home or self-care (01) ==
LOC: ED 05:41
DX: J44.1 Chronic obstructive pulmonary disease with (acute) exacerbation (principal); I10 Essential (primary) hypertension; E78.00 Pure hypercholesterolemia, unspecified; I25.10 Atherosclerotic heart disease of native coronary artery without angina pectoris; I25.2 Old myocardial infarction; Z86.711 Personal history of pulmonary embolism
CPT/HCPCS: 36415; 71010; 71275; 80053; 83880; 84484; 85025; 93005; 94640; 96361; 96365; 99285; J0696; J7030; J7512; Q9967; J7620

== ENCOUNTER 2017-08-31 13:10 | Emergency (ER) | payer MEDICAID ==
[~2017-08-31] VITALS: Ht 185.4 cm; Wt 84.5 kg
[2017-08-31] MEDS ORDERED: ASPIRIN 81 MG TABLET CHEW PO ONE (14:00)
[2017-08-31] MEDS ORDERED: SODIUM CHLORIDE 0.9% 1,000ML IVBOLUS ONE (14:30)
[2017-08-31 14:40] LABS: HEMATOCRIT 41.9 % (39.2-51.8); HEMOGLOBIN 14.7 g/dL (13.7-18.0); WHITE BLOOD COUNT 8.1 x10^3/uL (3.4-10)
[2017-08-31 14:51] LABS: ASPARTATE AMINO TRANSFERASE 16 U/L (15-37); BLOOD UREA NITROGEN 1 mg/dL (7-18)
[2017-08-31 14:57] LABS: IS PT STATUS REG ER OR PRE ER? YES
[2017-08-31] MEDS ORDERED: ASPIRIN 81 MG TABLET CHEW ONE (15:54)
[2017-08-31] MEDS ORDERED: OMNIPAQUE 350 MG/ML, 100ML BOTTLE ONE (16:54)
[2017-08-31] MEDS ORDERED: POTASSIUM CHLORIDE 20 MEQ TAB.ER.PRT ONE (17:43)
[2017-08-31] MEDS ORDERED: POTASSIUM CHLORIDE 20 MEQ TAB.ER.PRT PO ONE (18:00)
[2017-08-31 18:29] VITALS: BP 122/80
== END 2017-08-31 18:28 | disposition home or self-care (01) ==
LOC: ED 14:01
DX: R10.84 Generalized abdominal pain (principal); R19.7 Diarrhea, unspecified; R00.0 Tachycardia, unspecified; R05 Cough; I11.0 Hypertensive heart disease with heart failure; I50.9 Heart failure, unspecified; J44.9 Chronic obstructive pulmonary disease, unspecified; E78.00 Pure hypercholesterolemia, unspecified; F17.200 Nicotine dependence, unspecified, uncomplicated; M19.90 Unspecified osteoarthritis, unspecified site; Z86.73 Personal history of transient ischemic attack (TIA), and cerebral infarction without residual deficits
CPT/HCPCS: 36415; 71020; 74177; 80053; 83880; 84484; 85025; 93005; 96360; 99285; J7030; Q9967

== ENCOUNTER 2017-09-19 18:36 | Emergency (ER) | payer MEDICAID ==
[~2017-09-19] VITALS: Ht 185.4 cm; Wt 90.1 kg
[2017-09-19 19:29] LABS: HEMATOCRIT 39.9 % (39.2-51.8); HEMOGLOBIN 13.6 g/dL (13.7-18.0); WHITE BLOOD COUNT 8.2 x10^3/uL (3.4-10)
[2017-09-19 19:31] LABS: DIFF TOTAL CELLS COUNTED 100 CELL DIFF
[2017-09-19 19:34] LABS: ASPARTATE AMINO TRANSFERASE 42 U/L (15-37); BLOOD UREA NITROGEN 5 mg/dL (7-18)
[2017-09-19 19:40] LABS: IS PT STATUS REG ER OR PRE ER? NO
[2017-09-19 19:46] LABS: VERIFY COUNTS? YES
[2017-09-19] MEDS ORDERED: ALBUTEROL/IPRATROPIUM 2.5MG/0.5MG, 3 ML NPPB ONE (21:00)
[2017-09-19] MEDS ORDERED: ALBUTEROL SULFATE 2.5MG/0.5ML NPPB ONE (21:00)
[2017-09-19] MEDS ORDERED: ALBUTEROL/IPRATROPIUM 2.5MG/0.5MG, 3 ML ONE (21:06)
[2017-09-19 21:18] VITALS: BP 114/72
== END 2017-09-19 21:53 | disposition home or self-care (01) ==
LOC: ED 20:01
DX: R60.0 Localized edema (principal); J44.1 Chronic obstructive pulmonary disease with (acute) exacerbation; I10 Essential (primary) hypertension; E78.00 Pure hypercholesterolemia, unspecified; Z86.73 Personal history of transient ischemic attack (TIA), and cerebral infarction without residual deficits; F17.200 Nicotine dependence, unspecified, uncomplicated
CPT/HCPCS: 36415; 71010; 80053; 83690; 83880; 84484; 85025; 93005; 93970; 94640; 99285; J7611; J7620

== ENCOUNTER 2017-10-31 04:07 | Inpatient (IN) | payer MEDICAID ==
[~2017-10-31] VITALS: Ht 170.2 cm; Wt 91.0 kg
[2017-10-31] MEDS ORDERED: ALBUTEROL/IPRATROPIUM 2.5MG/0.5MG, 3 ML ONE (06:12)
[2017-10-31] MEDS ORDERED: ALBUTEROL/IPRATROPIUM 2.5MG/0.5MG, 3 ML NPPB SCH (06:30)
[2017-10-31 06:54] LABS: MEAN CORPUSCULAR HEMOGLOBIN 30.9 pg (27.5-34.5); MEAN CORPUSCULAR HGB CONC 31.5 g/dL (33.2-36.2); PLATELET COUNT 192 x10^3/uL (130-400)
[2017-10-31 06:58] LABS: ALANINE AMINOTRANSFERASE 157 U/L (12-78); ANION GAP 13 mmol/L (5-15); CHLORIDE 90 mmol/L (98-107); CREATININE 0.78 mg/dL (0.7-1.3)
[2017-10-31 07:00] LABS: ALKALINE PHOSPHATASE 284 U/L (45-117); BILIRUBIN,TOTAL 5.3 mg/dL (0.2-1.0); TOTAL PROTEIN 6.4 g/dL (6.4-8.2)
[2017-10-31 07:07] LABS: ACETAMINOPHEN < 2 mcg/mL (10-30); SALICYLATE LEVEL < 1.7 mg/dL (2.8-20.0)
[2017-10-31 08:24] LABS: MD YES
[2017-10-31 08:27] LABS: ANISOCYTOSIS 1+; EOS#(MANUAL) 0.06 x10^3/uL (0.0-0.4); EOS% (MANUAL) 1 % (1-7); LYMPHS% (MANUAL) 29 % (22-44); MONOS#(MANUAL) 0.22 x10^3/uL (0.3-2.7); MONOS% (MANUAL) 4 % (2-9); NRBC % (MANUAL) 4 % (0-1); SEG#(MANUAL) 3.63 x10^3/uL (1.8-6.8); SEGS% (MANUAL) 66 % (42-75); TARGET CELLS 1+
[2017-10-31 08:28] LABS: HYPOCHROMIA 1+; PAPPENHEIMER BODIES 1+
[2017-10-31 08:29] LABS: <PLATELET ESTIMATE> ADEQUATE; <PLT MORPHOLOGY> NORMAL PLT MORPH; POLYCHROMASIA 1+
[2017-10-31] MEDS ORDERED: PANTOPRAZOLE 40 MG IV IVPush ONE (09:00)
[2017-10-31] MEDS ORDERED: FAMOTIDINE 20 MG/2 ML IVPush ONE (09:00)
[2017-10-31] MEDS ORDERED: ONDANSETRON 2MG/ML, 2ML IVPush ONE (09:00)
[2017-10-31] MEDS ORDERED: PANTOPRAZOLE 40 MG IV ONE (09:34)
[2017-10-31] MEDS ORDERED: ONDANSETRON 2MG/ML, 2ML ONE (09:34)
[2017-10-31] MEDS ORDERED: FAMOTIDINE 20 MG/2 ML ONE (09:34)
[2017-10-31 09:52] LABS: INTERNATIONAL NORMALIZED RATIO 1.34 (0.93-1.1); PROTHROMBIN TIME 13.7 Seconds (9.6-11.5)
[2017-10-31] MEDS ORDERED: SODIUM CHLORIDE 0.9% 1,000 ML IV ONE (10:11)
[2017-10-31] MEDS ORDERED: SODIUM CHLORIDE FLUSH 10ML SYR IVF ONE (10:30)
[2017-10-31 10:39] LABS: AMPHETAMINE SCREEN, URINE Negative (Negative); BARBITURATE SCREEN, URINE Negative (Negative); BENZODIAZEPINE SCREEN, URINE Negative (Negative); CANNABINOID SCREEN, URINE Negative (Negative); COCAINE SCREEN, URINE Negative (Negative); METHADONE SCREEN, URINE Negative (Negative); OPIATE SCREEN, URINE Negative (Negative)
[2017-10-31 15:07] VITALS: BP 136/82
[2017-10-31] MEDS ORDERED: ONDANSETRON 2MG/ML, 2ML IVPush PRN (15:30)
[2017-10-31] MEDS ORDERED: NITROGLYCERIN 0.4 MG BOTTLE (25 TABS) SL PRN (15:30)
[2017-10-31] MEDS ORDERED: DOCUSATE 100 MG CAPSULE PO PRN (15:30)
[2017-10-31] MEDS ORDERED: FUROSEMIDE 40 MG/4 ML IV ONE (15:30)
[2017-10-31] MEDS: NICOTINE 21 MG/24 HR PATCH.TD24 TD SCH (15:30)
[2017-10-31] MEDS ORDERED: LORazepam 2 MG/ML, 1ML IV PRN ×5 (15:30)
[2017-10-31] MEDS ORDERED: hydrALAzine 20 MG/ML, 1ML IVPush PRN (15:30)
[2017-10-31] MEDS ORDERED: ENOXAPARIN 40 MG/0.4 ML SQ SCH (15:30)
[2017-10-31] MEDS: IPRATROPIUM 0.5 MG/2.5 ML INHA NPPB SCH ×2 (16:00→22:00)
[2017-10-31] MEDS ORDERED: MORPHINE SULFATE 4 MG/ML, 1ML IVPush PRN (16:00)
[2017-10-31] MEDS: POTASSIUM CHLORIDE 20 MEQ TAB.ER.PRT PO SCH ×2 (16:28→20:43)
[2017-10-31] MEDS: OXYcodone IR 5MG TABLET PO PRN (16:28)
[2017-10-31] MEDS ORDERED: METO50TA82 PO (16:40)
[2017-10-31] MEDS ORDERED: APIX5TAB PO (16:41)
[2017-10-31 16:56] LABS: TROPONIN I < 0.015 ng/mL (0.000-0.045)
[2017-10-31 17:26] LABS: FOLATE LEVEL 3.1 ng/mL (3.1-17.5); THYROID STIMULATING HORMONE 1.13 mIU/L (0.358-3.740)
[2017-10-31 19:54] VITALS: BP 126/79
[2017-10-31] MEDS ORDERED: FUROSEMIDE 40 MG/4 ML ONE (20:31)
[2017-10-31] MEDS: METOPROLOL TARTRATE 25 MG TABLET PO SCH (20:43)
[2017-10-31 21:53] LABS: MICROSCOPIC INDICATED
[2017-10-31 22:27] LABS: TROPONIN I < 0.015 ng/mL (0.000-0.045)
[2017-11-01] MEDS: OXYcodone IR 5MG TABLET PO PRN (00:57)
[2017-11-01 01:41] VITALS: BP 115/77
[2017-11-01 01:47] VITALS: BP 96/71
[2017-11-01 01:48] VITALS: BP 102/62
[2017-11-01] MEDS: IPRATROPIUM 0.5 MG/2.5 ML INHA NPPB SCH ×4 (04:00→21:17)
[2017-11-01 05:21] LABS: INTERNATIONAL NORMALIZED RATIO 1.51 (0.93-1.1); PROTHROMBIN TIME 15.4 Seconds (9.6-11.5)
[2017-11-01 05:30] LABS: CHLORIDE 92 mmol/L (98-107); TROPONIN I < 0.015 ng/mL (0.000-0.045)
[2017-11-01 05:40] LABS: MEAN CORPUSCULAR HEMOGLOBIN 34.3 pg (27.5-34.5); MEAN CORPUSCULAR HGB CONC 34.3 g/dL (33.2-36.2); MEAN CORPUSCULAR VOLUME 99.9 fL (81-97); MEAN PLATELET VOLUME 8.2 fL (7.4-10.4); PLATELET COUNT 151 x10^3/uL (130-400); RED BLOOD COUNT 2.37 x10^6/uL (4.38-5.82); RED CELL DISTRIBUTION WIDTH 17.4 % (9.4-14.8)
[2017-11-01 05:47] LABS: ALANINE AMINOTRANSFERASE 121 U/L (12-78); ALBUMIN 2.7 g/dL (3.4-5.0); ALKALINE PHOSPHATASE 211 U/L (45-117); ANION GAP 13 mmol/L (5-15); BILIRUBIN,TOTAL 6.7 mg/dL (0.2-1.0); CALCIUM 8.2 mg/dL (8.5-10.1); CREATININE 0.84 mg/dL (0.7-1.3); TOTAL PROTEIN 5.4 g/dL (6.4-8.2)
[2017-11-01] MEDS: METOPROLOL TARTRATE 25 MG TABLET PO SCH ×2 (05:52→16:34)
[2017-11-01 06:07] LABS: MD YES
[2017-11-01 06:10] LABS: EOS#(MANUAL) 0.05 x10^3/uL (0.0-0.4); EOS% (MANUAL) 1 % (1-7); LYMPH#(MANUAL) 1.38 x10^3/uL (1-3.4); LYMPHS% (MANUAL) 27 % (22-44); MONOS% (MANUAL) 4 % (2-9); NRBC % (MANUAL) 15 % (0-1); SEG#(MANUAL) 3.47 x10^3/uL (1.8-6.8); SEGS% (MANUAL) 68 % (42-75)
[2017-11-01 06:11] LABS: ANISOCYTOSIS 1+; BASOPHILLIC STIPPLING 1+; HYPOCHROMIA 1+; POLYCHROMASIA 1+; STOMATOCYTES 2+
[2017-11-01 06:12] LABS: <PLATELET ESTIMATE> ADEQUATE; <PLT MORPHOLOGY> NORMAL PLT MORPH; OVALOCYTES 1+
[2017-11-01 07:12] VITALS: BP 103/67
[2017-11-01] MEDS ORDERED: PANTOPRAZOLE 40 MG IV IVPush SCH (07:30)
[2017-11-01] MEDS ORDERED: TEMPLATE NON-FORMULARY MED. (Tiotropium Bromide** (Spiriva**) 18 MCG) INH SCH (09:00)
[2017-11-01] MEDS: MULTIVITAMINS/MINERALS TABLET PO SCH (09:07)
[2017-11-01] MEDS ORDERED: MAGNESIUM SULFATE PMX 2GM/50ML 50 ML IV ONE (12:00)
[2017-11-01] MEDS: NICOTINE 21 MG/24 HR PATCH.TD24 TD SCH (13:07)
[2017-11-01] MEDS: NEUTRA PHOS K 250 MG TABLET PO SCH ×2 (13:07→20:26)
[2017-11-01] MEDS: CHLORDIAZEPOXIDE 25 MG CAPSULE PO SCH (13:07)
[2017-11-01 14:04] VITALS: BP 104/69
[2017-11-01] MEDS ORDERED: LACTATED RINGERS 1,000 ML IV SCH (19:00)
[2017-11-01 19:39] VITALS: BP 105/69
[2017-11-01] MEDS: MAGNESIUM CHLORIDE 64 MG TABLET.DR PO SCH (20:26)
[2017-11-01] MEDS: PANTOPRAZOLE 40 MG IV IVPush SCH (20:28)
[2017-11-02] MEDS: CHLORDIAZEPOXIDE 25 MG CAPSULE PO SCH ×3 (00:38→21:26)
[2017-11-02 01:18] VITALS: BP 117/72
[2017-11-02] MEDS: IPRATROPIUM 0.5 MG/2.5 ML INHA NPPB SCH ×4 (02:35→19:11)
[2017-11-02] MEDS: METOPROLOL TARTRATE 25 MG TABLET PO SCH ×2 (05:45→18:26)
[2017-11-02 06:47] LABS: ALANINE AMINOTRANSFERASE 118 U/L (12-78); ALBUMIN 2.6 g/dL (3.4-5.0); ANION GAP 9 mmol/L (5-15); CALCIUM 8.1 mg/dL (8.5-10.1); CHLORIDE 92 mmol/L (98-107)
[2017-11-02 06:50] LABS: ALKALINE PHOSPHATASE 233 U/L (45-117); BILIRUBIN,TOTAL 7.1 mg/dL (0.2-1.0); CREATININE 0.65 mg/dL (0.7-1.3); TOTAL PROTEIN 5.3 g/dL (6.4-8.2)
[2017-11-02 07:29] VITALS: BP 104/67
[2017-11-02] MEDS ORDERED: POTASSIUM PHOSPHATE 44 MEQ in SODIUM CHLORIDE 0.9% 500 ML IV ONE (08:00)
[2017-11-02] MEDS: MULTIVITAMINS/MINERALS TABLET PO SCH (08:06)
[2017-11-02] MEDS: POTASSIUM CHLORIDE 20 MEQ TAB.ER.PRT PO SCH ×3 (08:06→18:26)
[2017-11-02] MEDS: MAGNESIUM CHLORIDE 64 MG TABLET.DR PO SCH ×2 (08:06→21:26)
[2017-11-02] MEDS: NEUTRA PHOS K 250 MG TABLET PO SCH ×2 (08:06→21:25)
[2017-11-02] MEDS: PANTOPRAZOLE 40 MG IV IVPush SCH ×2 (08:07→21:26)
[2017-11-02] MEDS: OXYcodone IR 5MG TABLET PO PRN ×3 (08:18→21:26)
[2017-11-02] MEDS: NICOTINE 21 MG/24 HR PATCH.TD24 TD SCH (12:52)
[2017-11-02 13:50] VITALS: BP 99/66
[2017-11-02 16:37] LABS: ANION GAP 6 mmol/L (5-15); CALCIUM 7.8 mg/dL (8.5-10.1); CHLORIDE 97 mmol/L (98-107); CREATININE 0.61 mg/dL (0.7-1.3)
[2017-11-02] MEDS ORDERED: prednisOLONE 15 MG/5 ML ORAL SOLN PO SCH (19:00)
[2017-11-02 21:22] VITALS: BP 98/65
[2017-11-03 01:59] VITALS: BP 102/67
[2017-11-03] MEDS: IPRATROPIUM 0.5 MG/2.5 ML INHA NPPB SCH ×4 (02:27→20:29)
[2017-11-03 05:35] LABS: MEAN CORPUSCULAR HEMOGLOBIN 33.9 pg (27.5-34.5); MEAN CORPUSCULAR HGB CONC 34.1 g/dL (33.2-36.2); MEAN CORPUSCULAR VOLUME 99.4 fL (81-97); PLATELET COUNT 168 x10^3/uL (130-400); RED BLOOD COUNT 2.32 x10^6/uL (4.38-5.82); RED CELL DISTRIBUTION WIDTH 16.9 % (9.4-14.8)
[2017-11-03 05:43] LABS: ALBUMIN 2.5 g/dL (3.4-5.0); ANION GAP 7 mmol/L (5-15); CALCIUM 8.2 mg/dL (8.5-10.1); CHLORIDE 98 mmol/L (98-107)
[2017-11-03 05:46] LABS: ALANINE AMINOTRANSFERASE 98 U/L (12-78); ALKALINE PHOSPHATASE 215 U/L (45-117); CREATININE 0.59 mg/dL (0.7-1.3); TOTAL PROTEIN 5.1 g/dL (6.4-8.2)
[2017-11-03] MEDS: METOPROLOL TARTRATE 25 MG TABLET PO SCH ×2 (06:02→18:11)
[2017-11-03] MEDS: OXYcodone IR 5MG TABLET PO PRN ×2 (06:02→21:17)
[2017-11-03 06:16] LABS: MD YES
[2017-11-03 06:20] LABS: BAND#(MANUAL) 0.26 x10^3/uL; BANDS%(MANUAL) 5 % (0-7); EOS#(MANUAL) 0.05 x10^3/uL (0.0-0.4); EOS% (MANUAL) 1 % (1-7); LYMPHS% (MANUAL) 23 % (22-44); MONOS#(MANUAL) 0.47 x10^3/uL (0.3-2.7); MONOS% (MANUAL) 9 % (2-9); NRBC % (MANUAL) 12 % (0-1); SEG#(MANUAL) 3.22 x10^3/uL (1.8-6.8); SEGS% (MANUAL) 62 % (42-75)
[2017-11-03 06:24] LABS: ANISOCYTOSIS 2+
[2017-11-03 06:25] LABS: POLYCHROMASIA 1+; TARGET CELLS 1+
[2017-11-03 06:26] LABS: BASOPHILLIC STIPPLING 1+
[2017-11-03 06:27] LABS: <PLATELET ESTIMATE> ADEQUATE; <PLT MORPHOLOGY> NORMAL PLT MORPH; STOMATOCYTES 1+
[2017-11-03 08:20] VITALS: BP 105/71
[2017-11-03] MEDS: MULTIVITAMINS/MINERALS TABLET PO SCH (08:38)
[2017-11-03] MEDS: MAGNESIUM CHLORIDE 64 MG TABLET.DR PO SCH ×2 (08:38→21:17)
[2017-11-03] MEDS: CHLORDIAZEPOXIDE 25 MG CAPSULE PO SCH ×2 (08:38→21:17)
[2017-11-03] MEDS: PANTOPRAZOLE 40 MG IV IVPush SCH ×2 (08:38→21:18)
[2017-11-03] MEDS: NEUTRA PHOS K 250 MG TABLET PO SCH ×2 (08:38→21:17)
[2017-11-03] MEDS ORDERED: PRED20TA PO (09:27)
[2017-11-03] MEDS: SUCRALFATE 1 GM/10 ML UDC PO SCH ×3 (12:53→21:18)
[2017-11-03 14:48] VITALS: BP 95/60
[2017-11-03] MEDS: NICOTINE 21 MG/24 HR PATCH.TD24 TD SCH (15:27)
[2017-11-03 18:12] VITALS: BP 100/66
[2017-11-04 01:50] VITALS: BP 97/61
[2017-11-04] MEDS: IPRATROPIUM 0.5 MG/2.5 ML INHA NPPB SCH ×4 (02:06→19:02)
[2017-11-04] MEDS: METOPROLOL TARTRATE 25 MG TABLET PO SCH ×2 (05:57→17:12)
[2017-11-04] MEDS: OXYcodone IR 5MG TABLET PO PRN (05:57)
[2017-11-04 07:21] VITALS: BP 99/63
[2017-11-04] MEDS: SUCRALFATE 1 GM/10 ML UDC PO SCH ×4 (08:08→21:27)
[2017-11-04] MEDS: PANTOPRAZOLE 40 MG IV IVPush SCH ×2 (08:08→21:27)
[2017-11-04] MEDS: CHLORDIAZEPOXIDE 25 MG CAPSULE PO SCH ×2 (09:03→21:27)
[2017-11-04] MEDS: MULTIVITAMINS/MINERALS TABLET PO SCH (09:08)
[2017-11-04] MEDS: NEUTRA PHOS K 250 MG TABLET PO SCH ×2 (09:08→21:27)
[2017-11-04] MEDS: MAGNESIUM CHLORIDE 64 MG TABLET.DR PO SCH ×2 (09:08→21:27)
[2017-11-04 13:32] VITALS: BP_SYST 92; BP_SYST 97; BP_DIAS 62
[2017-11-04] MEDS: NICOTINE 21 MG/24 HR PATCH.TD24 TD SCH (13:46)
[2017-11-04 19:28] VITALS: BP 82/54
[2017-11-04 22:34] LABS: OCCULT BLOOD POSITIVE (NEGATIVE)
[2017-11-04 22:59] LABS: STOOL FOR LEUKOCYTES NONE SEEN (NEGATIVE)
[2017-11-04 23:01] LABS: CLOSTRIDIUM DIFFICILE ANTIGEN POSITIVE
[2017-11-04 23:02] LABS: CLOSTRIDIUM DIFFICILE TOXIN NEGATIVE (Negative)
[2017-11-05 00:41] VITALS: BP 90/55
[2017-11-05] MEDS: IPRATROPIUM 0.5 MG/2.5 ML INHA NPPB SCH ×4 (03:09→20:50)
[2017-11-05 05:22] LABS: ALBUMIN 2.3 g/dL (3.4-5.0); ANION GAP 6 mmol/L (5-15); CALCIUM 8.4 mg/dL (8.5-10.1); CHLORIDE 99 mmol/L (98-107)
[2017-11-05 05:25] LABS: ALANINE AMINOTRANSFERASE 109 U/L (12-78); ALKALINE PHOSPHATASE 243 U/L (45-117); BILIRUBIN,TOTAL 4.3 mg/dL (0.2-1.0); CREATININE 0.62 mg/dL (0.7-1.3); TOTAL PROTEIN 5.1 g/dL (6.4-8.2)
[2017-11-05 05:52] LABS: MD YES; MEAN CORPUSCULAR HEMOGLOBIN 34.1 pg (27.5-34.5); MEAN CORPUSCULAR HGB CONC 32.8 g/dL (33.2-36.2); MEAN CORPUSCULAR VOLUME 103.8 fL (81-97); MEAN PLATELET VOLUME 8.5 fL (7.4-10.4); PLATELET COUNT 211 x10^3/uL (130-400); RED BLOOD COUNT 2.36 x10^6/uL (4.38-5.82); RED CELL DISTRIBUTION WIDTH 17.9 % (9.4-14.8)
[2017-11-05 05:56] LABS: ANISOCYTOSIS 2+; BAND#(MANUAL) 0.18 x10^3/uL; BANDS%(MANUAL) 3 % (0-7); EOS#(MANUAL) 0.06 x10^3/uL (0.0-0.4); EOS% (MANUAL) 1 % (1-7); LYMPH#(MANUAL) 1.32 x10^3/uL (1-3.4); LYMPHS% (MANUAL) 22 % (22-44); METAMYELOCYTES# (MANUAL) 0.06 x10^3/uL (0-0); METAMYELOCYTES% (MANUAL) 1 % (0-1); MONOS#(MANUAL) 1.02 x10^3/uL (0.3-2.7); MONOS% (MANUAL) 17 % (2-9); MYELOCYTES# (MANUAL) 0.06 x10^3/uL (0-0); MYELOCYTES% (MANUAL) 1 % (0-0); NRBC % (MANUAL) 6 % (0-1); SEGS% (MANUAL) 55 % (42-75)
[2017-11-05 05:57] LABS: POLYCHROMASIA 1+; STOMATOCYTES 1+; TARGET CELLS 1+
[2017-11-05 05:58] LABS: <PLATELET ESTIMATE> ADEQUATE; <PLT MORPHOLOGY> NORMAL PLT MORPH; BASOPHILLIC STIPPLING 1+; OVALOCYTES 1+
[2017-11-05 08:36] VITALS: BP 109/72
[2017-11-05] MEDS: CHLORDIAZEPOXIDE 25 MG CAPSULE PO SCH ×2 (09:21→20:20)
[2017-11-05] MEDS: PANTOPRAZOLE 40 MG IV IVPush SCH ×2 (09:21→20:20)
[2017-11-05] MEDS: SUCRALFATE 1 GM/10 ML UDC PO SCH ×4 (09:21→20:20)
[2017-11-05] MEDS: NEUTRA PHOS K 250 MG TABLET PO SCH ×2 (09:21→20:20)
[2017-11-05] MEDS: MAGNESIUM CHLORIDE 64 MG TABLET.DR PO SCH ×2 (09:21→20:21)
[2017-11-05] MEDS: MULTIVITAMINS/MINERALS TABLET PO SCH (09:21)
[2017-11-05] MEDS: METOPROLOL TARTRATE 25 MG TABLET PO SCH ×2 (09:21→17:44)
[2017-11-05] MEDS: metroNIDAZOLE 500 MG TABLET PO SCH ×3 (12:06→20:21)
[2017-11-05 13:41] VITALS: BP 99/72
[2017-11-05] MEDS: NICOTINE 21 MG/24 HR PATCH.TD24 TD SCH (16:06)
[2017-11-05 17:46] VITALS: BP 107/71
[2017-11-05 19:09] VITALS: BP 102/71
[2017-11-06 00:37] VITALS: BP 96/64
[2017-11-06] MEDS: IPRATROPIUM 0.5 MG/2.5 ML INHA NPPB SCH ×4 (03:03→21:12)
[2017-11-06 05:23] LABS: CHLORIDE 100 mmol/L (98-107)
[2017-11-06 05:24] LABS: ALANINE AMINOTRANSFERASE 112 U/L (12-78); ALBUMIN 2.2 g/dL (3.4-5.0); ANION GAP 8 mmol/L (5-15)
[2017-11-06 05:26] LABS: ALKALINE PHOSPHATASE 227 U/L (45-117); BILIRUBIN,TOTAL 3.6 mg/dL (0.2-1.0); CREATININE 0.69 mg/dL (0.7-1.3); TOTAL PROTEIN 4.9 g/dL (6.4-8.2)
[2017-11-06 06:24] LABS: MEAN CORPUSCULAR HEMOGLOBIN 34.6 pg (27.5-34.5); MEAN CORPUSCULAR HGB CONC 32.8 g/dL (33.2-36.2); MEAN CORPUSCULAR VOLUME 105.4 fL (81-97); MEAN PLATELET VOLUME 8.6 fL (7.4-10.4); PLATELET COUNT 213 x10^3/uL (130-400); RED BLOOD COUNT 2.34 x10^6/uL (4.38-5.82); RED CELL DISTRIBUTION WIDTH 18.9 % (9.4-14.8)
[2017-11-06] MEDS: METOPROLOL TARTRATE 25 MG TABLET PO SCH ×2 (06:25→17:44)
[2017-11-06 06:54] LABS: MD YES
[2017-11-06 07:22] LABS: LYMPH#(MANUAL) 1.94 x10^3/uL (1-3.4); LYMPHS% (MANUAL) 38 % (22-44); MONOS#(MANUAL) 0.31 x10^3/uL (0.3-2.7); MONOS% (MANUAL) 6 % (2-9); NRBC % (MANUAL) 6 % (0-1); SEG#(MANUAL) 2.86 x10^3/uL (1.8-6.8); SEGS% (MANUAL) 56 % (42-75)
[2017-11-06 07:23] LABS: ANISOCYTOSIS 2+; POLYCHROMASIA 2+
[2017-11-06 07:24] LABS: <PLATELET ESTIMATE> ADEQUATE; <PLT MORPHOLOGY> NORMAL PLT MORPH; TARGET CELLS 1+
[2017-11-06 08:20] VITALS: BP 102/68
[2017-11-06] MEDS: CHLORDIAZEPOXIDE 25 MG CAPSULE PO SCH ×2 (09:18→21:01)
[2017-11-06] MEDS: MULTIVITAMINS/MINERALS TABLET PO SCH (09:18)
[2017-11-06] MEDS: MAGNESIUM CHLORIDE 64 MG TABLET.DR PO SCH ×2 (09:18→21:02)
[2017-11-06] MEDS: metroNIDAZOLE 500 MG TABLET PO SCH ×3 (09:19→21:01)
[2017-11-06] MEDS: NEUTRA PHOS K 250 MG TABLET PO SCH ×2 (09:19→21:01)
[2017-11-06] MEDS: SUCRALFATE 1 GM/10 ML UDC PO SCH ×4 (09:20→21:02)
[2017-11-06] MEDS: PANTOPRAZOLE 40 MG IV IVPush SCH ×2 (09:20→21:02)
[2017-11-06 12:48] VITALS: BP 101/67
[2017-11-06] MEDS: NICOTINE 21 MG/24 HR PATCH.TD24 TD SCH (16:08)
[2017-11-06 17:43] VITALS: BP 91/58
[2017-11-06 19:44] VITALS: BP 107/72
[2017-11-06 19:50] LABS: ANION GAP 9 mmol/L (5-15); CALCIUM 8.6 mg/dL (8.5-10.1); CHLORIDE 99 mmol/L (98-107); CREATININE 0.68 mg/dL (0.7-1.3)
[2017-11-07 01:40] VITALS: BP 90/63
[2017-11-07] MEDS: SODIUM CHLORIDE 0.9% 1,000 ML IV SCH ×2 (02:05→16:34)
[2017-11-07] MEDS: IPRATROPIUM 0.5 MG/2.5 ML INHA NPPB SCH ×4 (04:00→21:28)
[2017-11-07 05:01] LABS: ALBUMIN 2.2 g/dL (3.4-5.0); ANION GAP 8 mmol/L (5-15); CALCIUM 8.3 mg/dL (8.5-10.1); CHLORIDE 104 mmol/L (98-107)
[2017-11-07 05:07] LABS: ALANINE AMINOTRANSFERASE 124 U/L (12-78); ALKALINE PHOSPHATASE 234 U/L (45-117); BILIRUBIN,TOTAL 3.3 mg/dL (0.2-1.0); CREATININE 0.72 mg/dL (0.7-1.3)
[2017-11-07 05:09] LABS: INTERNATIONAL NORMALIZED RATIO 1.05 (0.93-1.1); PROTHROMBIN TIME 10.9 Seconds (9.6-11.5)
[2017-11-07 05:34] LABS: MEAN CORPUSCULAR HEMOGLOBIN 34.4 pg (27.5-34.5); MEAN CORPUSCULAR HGB CONC 32.1 g/dL (33.2-36.2); MEAN CORPUSCULAR VOLUME 107.1 fL (81-97); MEAN PLATELET VOLUME 8.8 fL (7.4-10.4); PLATELET COUNT 246 x10^3/uL (130-400); RED BLOOD COUNT 2.39 x10^6/uL (4.38-5.82); RED CELL DISTRIBUTION WIDTH 21.3 % (9.4-14.8)
[2017-11-07 05:46] VITALS: BP 99/64
[2017-11-07] MEDS: METOPROLOL TARTRATE 25 MG TABLET PO SCH ×2 (05:49→17:48)
[2017-11-07 06:00] LABS: MD YES
[2017-11-07 06:02] LABS: LYMPH#(MANUAL) 1.57 x10^3/uL (1-3.4); LYMPHS% (MANUAL) 29 % (22-44); MONOS#(MANUAL) 0.49 x10^3/uL (0.3-2.7); MONOS% (MANUAL) 9 % (2-9); NRBC % (MANUAL) 2 % (0-1); SEG#(MANUAL) 3.35 x10^3/uL (1.8-6.8); SEGS% (MANUAL) 62 % (42-75)
[2017-11-07 06:03] LABS: ANISOCYTOSIS 2+; POLYCHROMASIA 2+
[2017-11-07 06:04] LABS: MICROCYTOSIS 1+
[2017-11-07 06:06] LABS: BASOPHILLIC STIPPLING 1+
[2017-11-07 06:07] LABS: <PLATELET ESTIMATE> ADEQUATE; <PLT MORPHOLOGY> NORMAL PLT MORPH
[2017-11-07 06:08] LABS: STOMATOCYTES 1+
[2017-11-07] MEDS: SUCRALFATE 1 GM/10 ML UDC PO SCH ×4 (07:00→23:09)
[2017-11-07 08:01] VITALS: BP 96/63
[2017-11-07] MEDS: CHLORDIAZEPOXIDE 25 MG CAPSULE PO SCH ×2 (09:00→23:09)
[2017-11-07] MEDS: metroNIDAZOLE 500 MG TABLET PO SCH ×3 (09:00→23:09)
[2017-11-07] MEDS: MAGNESIUM CHLORIDE 64 MG TABLET.DR PO SCH ×2 (09:00→23:10)
[2017-11-07] MEDS: NEUTRA PHOS K 250 MG TABLET PO SCH ×2 (09:00→23:10)
[2017-11-07] MEDS: MULTIVITAMINS/MINERALS TABLET PO SCH (09:00)
[2017-11-07] MEDS: PANTOPRAZOLE 40 MG IV IVPush SCH ×2 (10:19→23:09)
[2017-11-07 12:47] LABS: BILIRUBIN, DIRECT 2.5 mg/dL (0.1-0.2)
[2017-11-07 13:42] VITALS: BP 104/71
[2017-11-07] MEDS: NICOTINE 21 MG/24 HR PATCH.TD24 TD SCH (15:30)
[2017-11-07] MEDS ORDERED: EPINEPHRINE 1 MG/ML, 1ML ONE (17:31)
[2017-11-07] MEDS ORDERED: BUPIVACAINE/PF 0.5% ONE (17:31)
[2017-11-07] MEDS ORDERED: PROPOFOL 10 MG/ML, 20ML ONE ×2 (17:33→18:15)
[2017-11-07] MEDS ORDERED: LIDOCAINE-MPF 2% ,5ML ONE (17:33)
[2017-11-07] MEDS ORDERED: FENTANYL PF 100 MCG/2ML ONE ×2 (17:53→19:33)
[2017-11-07] MEDS ORDERED: METOPROLOL 1 MG/ML, 5ML IV PRN (18:00)
[2017-11-07] MEDS ORDERED: ACETAMINOPHEN 325 MG TABLET PO PRN (18:00)
[2017-11-07] MEDS ORDERED: hydrALAzine 20 MG/ML, 1ML IV PRN (18:00)
[2017-11-07] MEDS ORDERED: PROMETHAZINE 25 MG/ML, 1ML IV PRN (18:00)
[2017-11-07] MEDS ORDERED: EPHEDRINE 50 MG/ML, 1ML IVPush PRN (18:00)
[2017-11-07] MEDS ORDERED: ALBUTEROL SULFATE 2.5 MG/3 ML NPPB PRN (18:00)
[2017-11-07] MEDS ORDERED: OXYcodone 5 MG/5 ML ORAL.SOL UDC PO PRN (18:00)
[2017-11-07] MEDS ORDERED: LABETALOL 5MG/ML, 20ML IV PRN (18:00)
[2017-11-07] MEDS ORDERED: ONDANSETRON 2MG/ML, 2ML IVPush PRN (18:00)
[2017-11-07] MEDS ORDERED: LORazepam 2 MG/ML, 1ML IVPush PRN (18:00)
[2017-11-07] MEDS ORDERED: HYDROmorphone 1 MG/ML, 1ML IV PRN (18:00)
[2017-11-07] MEDS ORDERED: ROCURONIUM 10 MG/ML,10ML ONE (18:15)
[2017-11-07] MEDS ORDERED: CEFOTETAN PMX 2GM/50ML 50 ML ONE (18:15)
[2017-11-07] MEDS ORDERED: NEOSTIGMINE 1 MG/ML, 10ML ONE (18:17)
[2017-11-07] MEDS ORDERED: ONDANSETRON 2MG/ML, 2ML ONE (18:17)
[2017-11-07] MEDS ORDERED: GLYCOPYRROLATE 0.4 MG/2 ML, 2ML ONE (18:17)
[2017-11-07] MEDS ORDERED: OXYcodone 5 MG/5 ML ORAL.SOL UDC ONE (19:33)
[2017-11-07] MEDS: FENTANYL PF 100 MCG/2ML IV PRN ×3 (19:53→20:15)
[2017-11-07 20:30] VITALS: BP 103/70
[2017-11-07] MEDS: IBUPROFEN 200 MG TABLET PO PRN (23:10)
[2017-11-07] MEDS ORDERED: POTASSIUM CHLORIDE 20 MEQ in D5%-0.45% NACL 1,000 ML IV SCH (23:45)
[2017-11-07] MEDS ORDERED: ONDANSETRON 2MG/ML, 2ML IV PRN (23:45)
[2017-11-08] VITALS (7 sets, daily range): BP systolic 91–131; BP diastolic 54–73
[2017-11-08] MEDS: IPRATROPIUM 0.5 MG/2.5 ML INHA NPPB SCH ×4 (02:24→19:35)
[2017-11-08 05:41] LABS: MEAN CORPUSCULAR HEMOGLOBIN 34.9 pg (27.5-34.5); MEAN CORPUSCULAR HGB CONC 32.4 g/dL (33.2-36.2); MEAN CORPUSCULAR VOLUME 107.7 fL (81-97); MEAN PLATELET VOLUME 8.3 fL (7.4-10.4); PLATELET COUNT 262 x10^3/uL (130-400); RED BLOOD COUNT 2.23 x10^6/uL (4.38-5.82); RED CELL DISTRIBUTION WIDTH 23.3 % (9.4-14.8)
[2017-11-08 05:48] LABS: ANION GAP 8 mmol/L (5-15); CHLORIDE 106 mmol/L (98-107)
[2017-11-08 05:51] LABS: ALANINE AMINOTRANSFERASE 153 U/L (12-78); ALKALINE PHOSPHATASE 187 U/L (45-117); BILIRUBIN,TOTAL 2.9 mg/dL (0.2-1.0); CREATININE 0.78 mg/dL (0.7-1.3); TOTAL PROTEIN 4.7 g/dL (6.4-8.2)
[2017-11-08 05:58] LABS: MD YES
[2017-11-08] MEDS: CEFOTETAN PMX 2GM/50ML 50 ML IVPB SCH ×2 (05:59→18:27)
[2017-11-08 06:01] LABS: ANISOCYTOSIS 2+; BAND#(MANUAL) 0.34 x10^3/uL; BANDS%(MANUAL) 5 % (0-7); LYMPH#(MANUAL) 1.34 x10^3/uL (1-3.4); LYMPHS% (MANUAL) 20 % (22-44); METAMYELOCYTES# (MANUAL) 0.07 x10^3/uL (0-0); METAMYELOCYTES% (MANUAL) 1 % (0-1); MICROCYTOSIS 1+; MONOS#(MANUAL) 0.47 x10^3/uL (0.3-2.7); MONOS% (MANUAL) 7 % (2-9); NRBC % (MANUAL) 1 % (0-1); POLYCHROMASIA 1+; SEG#(MANUAL) 4.49 x10^3/uL (1.8-6.8); SEGS% (MANUAL) 67 % (42-75)
[2017-11-08 06:02] LABS: <PLATELET ESTIMATE> ADEQUATE; <PLT MORPHOLOGY> NORMAL PLT MORPH; STOMATOCYTES 1+
[2017-11-08 06:03] LABS: BASOPHILLIC STIPPLING 1+
[2017-11-08 06:04] LABS: OVALOCYTES 1+
[2017-11-08] MEDS: METOPROLOL TARTRATE 25 MG TABLET PO SCH ×2 (06:04→18:00)
[2017-11-08] MEDS: SUCRALFATE 1 GM/10 ML UDC PO SCH ×4 (07:34→23:44)
[2017-11-08] MEDS: PANTOPRAZOLE 40 MG IV IVPush SCH ×2 (07:34→22:12)
[2017-11-08] MEDS: CHLORDIAZEPOXIDE 25 MG CAPSULE PO SCH ×2 (07:35→23:44)
[2017-11-08] MEDS: metroNIDAZOLE 500 MG TABLET PO SCH ×3 (07:35→22:12)
[2017-11-08] MEDS: NEUTRA PHOS K 250 MG TABLET PO SCH ×2 (07:35→22:11)
[2017-11-08] MEDS: MULTIVITAMINS/MINERALS TABLET PO SCH (07:35)
[2017-11-08] MEDS: MAGNESIUM CHLORIDE 64 MG TABLET.DR PO SCH ×2 (07:35→22:11)
[2017-11-08] MEDS: IBUPROFEN 200 MG TABLET PO PRN (10:45)
[2017-11-08] MEDS: NICOTINE 21 MG/24 HR PATCH.TD24 TD SCH (15:24)
[2017-11-09 01:36] VITALS: BP 95/60
[2017-11-09] MEDS: IPRATROPIUM 0.5 MG/2.5 ML INHA NPPB SCH ×4 (02:54→21:27)
[2017-11-09 05:59] LABS: ALANINE AMINOTRANSFERASE 134 U/L (12-78); ALBUMIN 1.9 g/dL (3.4-5.0); ANION GAP 6 mmol/L (5-15); CALCIUM 7.9 mg/dL (8.5-10.1); CHLORIDE 105 mmol/L (98-107); CREATININE 0.66 mg/dL (0.7-1.3)
[2017-11-09 06:02] VITALS: BP 120/76
[2017-11-09 06:02] LABS: ALKALINE PHOSPHATASE 227 U/L (45-117); BILIRUBIN,TOTAL 2.3 mg/dL (0.2-1.0); TOTAL PROTEIN 4.8 g/dL (6.4-8.2)
[2017-11-09] MEDS: METOPROLOL TARTRATE 25 MG TABLET PO SCH ×2 (06:04→17:30)
[2017-11-09 06:18] LABS: MEAN CORPUSCULAR HEMOGLOBIN 35.6 pg (27.5-34.5); MEAN CORPUSCULAR HGB CONC 32.8 g/dL (33.2-36.2); MEAN CORPUSCULAR VOLUME 108.4 fL (81-97); MEAN PLATELET VOLUME 8.4 fL (7.4-10.4); PLATELET COUNT 298 x10^3/uL (130-400); RED BLOOD COUNT 2.32 x10^6/uL (4.38-5.82); RED CELL DISTRIBUTION WIDTH 23.5 % (9.4-14.8)
[2017-11-09] MEDS: OXYcodone 5 MG/5 ML ORAL.SOL UDC PO PRN ×3 (06:27→22:14)
[2017-11-09 06:54] LABS: MD YES
[2017-11-09 06:56] LABS: BASOS#(MANUAL) 0.07 x10^3/uL (0-0.1); BASOS% (MANUAL) 1 % (0-1); EOS#(MANUAL) 0.14 x10^3/uL (0.0-0.4); EOS% (MANUAL) 2 % (1-7); LYMPH#(MANUAL) 1.52 x10^3/uL (1-3.4); LYMPHS% (MANUAL) 22 % (22-44); MONOS#(MANUAL) 0.41 x10^3/uL (0.3-2.7); MONOS% (MANUAL) 6 % (2-9); SEG#(MANUAL) 4.76 x10^3/uL (1.8-6.8); SEGS% (MANUAL) 69 % (42-75)
[2017-11-09 06:57] LABS: <PLATELET ESTIMATE> ADEQUATE
[2017-11-09 06:58] LABS: ANISOCYTOSIS 2+
[2017-11-09 06:59] LABS: BASOPHILLIC STIPPLING 1+; OVALOCYTES 1+; POLYCHROMASIA 2+
[2017-11-09 07:00] LABS: <PLT MORPHOLOGY> NORMAL PLT MORPH
[2017-11-09] MEDS: MAGNESIUM CHLORIDE 64 MG TABLET.DR PO SCH ×2 (08:00→20:31)
[2017-11-09] MEDS: SUCRALFATE 1 GM/10 ML UDC PO SCH ×4 (08:00→20:31)
[2017-11-09] MEDS: NEUTRA PHOS K 250 MG TABLET PO SCH ×2 (08:01→20:32)
[2017-11-09] MEDS: PANTOPRAZOLE 40 MG IV IVPush SCH ×2 (08:01→20:32)
[2017-11-09] MEDS: metroNIDAZOLE 500 MG TABLET PO SCH ×3 (08:01→20:31)
[2017-11-09] MEDS: MULTIVITAMINS/MINERALS TABLET PO SCH (08:01)
[2017-11-09] MEDS: CHLORDIAZEPOXIDE 25 MG CAPSULE PO SCH ×2 (08:01→20:31)
[2017-11-09 08:09] VITALS: BP 106/68
[2017-11-09 12:15] VITALS: BP 102/73
[2017-11-09] MEDS: NICOTINE 21 MG/24 HR PATCH.TD24 TD SCH (15:30)
[2017-11-09 17:30] VITALS: BP 99/65
[2017-11-09 19:54] VITALS: BP 119/77
[2017-11-10 01:19] VITALS: BP 100/63
[2017-11-10] MEDS: IPRATROPIUM 0.5 MG/2.5 ML INHA NPPB SCH ×4 (02:55→19:45)
[2017-11-10] MEDS: OXYcodone 5 MG/5 ML ORAL.SOL UDC PO PRN ×4 (04:53→20:26)
[2017-11-10 05:55] LABS: CHLORIDE 102 mmol/L (98-107)
[2017-11-10 06:05] LABS: ALANINE AMINOTRANSFERASE 118 U/L (12-78); ALBUMIN 2.1 g/dL (3.4-5.0); ALKALINE PHOSPHATASE 222 U/L (45-117); ANION GAP 5 mmol/L (5-15); BILIRUBIN,TOTAL 1.9 mg/dL (0.2-1.0); CALCIUM 7.9 mg/dL (8.5-10.1); CREATININE 0.62 mg/dL (0.7-1.3); TOTAL PROTEIN 5.1 g/dL (6.4-8.2)
[2017-11-10] MEDS: METOPROLOL TARTRATE 25 MG TABLET PO SCH ×2 (06:36→18:00)
[2017-11-10] MEDS: SUCRALFATE 1 GM/10 ML UDC PO SCH ×4 (06:50→20:26)
[2017-11-10 08:40] VITALS: BP 96/57
[2017-11-10] MEDS: MAGNESIUM CHLORIDE 64 MG TABLET.DR PO SCH ×2 (08:44→20:26)
[2017-11-10] MEDS: PANTOPRAZOLE 40 MG IV IVPush SCH ×2 (08:44→20:26)
[2017-11-10] MEDS: CHLORDIAZEPOXIDE 25 MG CAPSULE PO SCH ×2 (08:44→20:26)
[2017-11-10] MEDS: IBUPROFEN 200 MG TABLET PO PRN (08:44)
[2017-11-10] MEDS: NEUTRA PHOS K 250 MG TABLET PO SCH ×2 (08:45→20:26)
[2017-11-10] MEDS: metroNIDAZOLE 500 MG TABLET PO SCH ×3 (08:45→20:26)
[2017-11-10] MEDS: MULTIVITAMINS/MINERALS TABLET PO SCH (08:45)
[2017-11-10] MEDS: NICOTINE 21 MG/24 HR PATCH.TD24 TD SCH (15:30)
[2017-11-10 17:23] VITALS: BP 100/62
[2017-11-10 20:44] VITALS: BP 97/63
[2017-11-11] MEDS: IPRATROPIUM 0.5 MG/2.5 ML INHA NPPB SCH ×4 (02:20→20:50)
[2017-11-11 03:07] VITALS: BP 114/74
[2017-11-11] MEDS: OXYcodone 5 MG/5 ML ORAL.SOL UDC PO PRN ×5 (03:26→22:32)
[2017-11-11] MEDS: METOPROLOL TARTRATE 25 MG TABLET PO SCH ×2 (05:50→18:00)
[2017-11-11] MEDS: SUCRALFATE 1 GM/10 ML UDC PO SCH ×4 (06:44→21:20)
[2017-11-11 08:50] VITALS: BP 95/60
[2017-11-11] MEDS: CHLORDIAZEPOXIDE 25 MG CAPSULE PO SCH ×2 (09:00→21:21)
[2017-11-11] MEDS: PANTOPRAZOLE 40 MG IV IVPush SCH (09:17)
[2017-11-11] MEDS: metroNIDAZOLE 500 MG TABLET PO SCH ×3 (09:17→21:21)
[2017-11-11] MEDS: NEUTRA PHOS K 250 MG TABLET PO SCH ×2 (09:18→21:21)
[2017-11-11] MEDS: MULTIVITAMINS/MINERALS TABLET PO SCH (09:18)
[2017-11-11] MEDS: MAGNESIUM CHLORIDE 64 MG TABLET.DR PO SCH ×2 (09:18→21:21)
[2017-11-11] MEDS: PANTOPROZOLE 40MG TABLET PO SCH ×2 (11:00→21:21)
[2017-11-11] MEDS: IBUPROFEN 200 MG TABLET PO PRN (11:56)
[2017-11-11] MEDS: NICOTINE 21 MG/24 HR PATCH.TD24 TD SCH (14:42)
[2017-11-11 14:46] VITALS: BP 101/64
[2017-11-11 20:38] VITALS: BP 109/63
[2017-11-12 02:18] VITALS: BP 112/65
[2017-11-12] MEDS: IPRATROPIUM 0.5 MG/2.5 ML INHA NPPB SCH ×3 (03:30→14:45)
[2017-11-12] MEDS: OXYcodone 5 MG/5 ML ORAL.SOL UDC PO PRN ×2 (04:40→09:38)
[2017-11-12] MEDS: METOPROLOL TARTRATE 25 MG TABLET PO SCH (06:43)
[2017-11-12] MEDS: SUCRALFATE 1 GM/10 ML UDC PO SCH ×2 (06:43→09:38)
[2017-11-12 08:55] VITALS: BP 101/67
[2017-11-12] MEDS: CHLORDIAZEPOXIDE 25 MG CAPSULE PO SCH (09:00)
[2017-11-12] MEDS: metroNIDAZOLE 500 MG TABLET PO SCH (09:38)
[2017-11-12] MEDS: PANTOPROZOLE 40MG TABLET PO SCH (09:38)
[2017-11-12] MEDS: MULTIVITAMINS/MINERALS TABLET PO SCH (09:39)
[2017-11-12] MEDS: MAGNESIUM CHLORIDE 64 MG TABLET.DR PO SCH (09:39)
[2017-11-12] MEDS: NEUTRA PHOS K 250 MG TABLET PO SCH (09:39)
[2017-11-12 13:59] VITALS: BP 119/78
[2017-11-12] MEDS: NICOTINE 21 MG/24 HR PATCH.TD24 TD SCH (15:30)
== END 2017-11-12 17:41 | disposition left against medical advice (07) | DRG 417 ==
LOC: ED 08:35 → EDIP 10:11 → 3NE 15:09 → 5SO 17:57 → 3NE 11-06 17:36 → 4NOR 11-07 21:30
PROVIDERS: ADMIT Internal Medicine; ATTEND Internal Medicine
PROC: 0FT44ZZ Resection of Gallbladder, Percutaneous Endoscopic Approach (ICD-10-PCS; principal; 2017-11-07 17:00)
DX: K81.0 Acute cholecystitis (principal); K29.21 Alcoholic gastritis with bleeding; E43 Unspecified severe protein-calorie malnutrition; I50.31 Acute diastolic (congestive) heart failure; J96.11 Chronic respiratory failure with hypoxia; K70.10 Alcoholic hepatitis without ascites; Z99.81 Dependence on supplemental oxygen; E87.1 Hypo-osmolality and hyponatremia; F32.0 Major depressive disorder, single episode, mild; J44.1 Chronic obstructive pulmonary disease with (acute) exacerbation; J98.11 Atelectasis; K76.0 Fatty (change of) liver, not elsewhere classified; W07.XXXA Fall from chair, initial encounter; D53.9 Nutritional anemia, unspecified; I48.0 Paroxysmal atrial fibrillation; I11.0 Hypertensive heart disease with heart failure; Z68.31 Body mass index [BMI] 31.0-31.9, adult; E78.00 Pure hypercholesterolemia, unspecified; E83.39 Other disorders of phosphorus metabolism; E83.42 Hypomagnesemia; E87.6 Hypokalemia; F10.229 Alcohol dependence with intoxication, unspecified; F17.210 Nicotine dependence, cigarettes, uncomplicated; I25.2 Old myocardial infarction; M51.37 Other intervertebral disc degeneration, lumbosacral region; Z79.899 Other long term (current) drug therapy; Z82.0 Family history of epilepsy and other diseases of the nervous system; Z82.49 Family history of ischemic heart disease and other diseases of the circulatory system; Z86.711 Personal history of pulmonary embolism; Z86.73 Personal history of transient ischemic attack (TIA), and cerebral infarction without residual deficits; Z91.19 Patient's noncompliance with other medical treatment and regimen; Y93.89 Activity, other specified; Y92.89 Other specified places as the place of occurrence of the external cause; Y99.8 Other external cause status
CPT/HCPCS: 36415; 71010; 72110; 74021; 76700; 78226; 80048; 80053; 80307; 80329; 81001; 82248; 82272; 82438; 82533; 82607; 82746; 83735; 83935; 84100; 84302; 84443; 84484; 84999; 85025; 85610; 85730; 86850; 86900; 87046; 87324; 87899; 88304; 89055; 94640; 96361; 96374; 96375; J0171; J1940; J2405; J2704; J2710; J3010; J3480; J3490; J7620; J7644; A9537; C9113; C9898; G0479; G0480; J2060; J3475; J7030; J7040; J7120; J7512; S0028; S0074

== ENCOUNTER 2017-11-22 04:42 | Emergency (ER) | payer MEDICAID ==
[~2017-11-22] VITALS: Ht 177.8 cm; Wt 75.0 kg
[2017-11-22 06:25] LABS: ALANINE AMINOTRANSFERASE 131 U/L (12-78); ALBUMIN 2.7 g/dL (3.4-5.0); ANION GAP 7 mmol/L (5-15); CALCIUM 7.8 mg/dL (8.5-10.1); CHLORIDE 102 mmol/L (98-107); CREATININE 0.58 mg/dL (0.7-1.3)
[2017-11-22 06:29] LABS: ALKALINE PHOSPHATASE 280 U/L (45-117); BILIRUBIN,TOTAL 1.1 mg/dL (0.2-1.0); TROPONIN I < 0.015 ng/mL (0.000-0.045)
[2017-11-22 06:31] LABS: MEAN CORPUSCULAR HEMOGLOBIN 34.5 pg (27.5-34.5); MEAN CORPUSCULAR HGB CONC 32.9 g/dL (33.2-36.2); MEAN CORPUSCULAR VOLUME 104.7 fL (81-97); MEAN PLATELET VOLUME 7.8 fL (7.4-10.4); PLATELET COUNT 391 x10^3/uL (130-400); RED BLOOD COUNT 3.42 x10^6/uL (4.38-5.82); RED CELL DISTRIBUTION WIDTH 18.8 % (9.4-14.8)
[2017-11-22 06:53] LABS: BASOPHILS # (AUTO) 0.07 x10^3/uL (0-0.1); BASOPHILS % (AUTO) 1 % (0-1); EOSINOPHILS # (AUTO) 0.14 x10^3/uL (0-0.4); EOSINOPHILS % (AUTO) 2 % (1-7); LYMPHOCYTES % (AUTO) 29 % (22-44); MD SCAN; MONOCYTES % (AUTO) 7 % (2-9); NEUTROPHILS # (AUTO) 4.25 x10^3/uL (1.8-6.8); NEUTROPHILS % (AUTO) 61 % (42-75)
[2017-11-22 07:05] VITALS: BP 92/68
== END 2017-11-22 07:12 | disposition home or self-care (01) ==
LOC: ED 06:16
DX: R53.1 Weakness (principal); R05 Cough; R60.9 Edema, unspecified; K52.9 Noninfective gastroenteritis and colitis, unspecified; F10.20 Alcohol dependence, uncomplicated; E83.51 Hypocalcemia; E88.09 Other disorders of plasma-protein metabolism, not elsewhere classified; I10 Essential (primary) hypertension; I25.2 Old myocardial infarction; E78.00 Pure hypercholesterolemia, unspecified; Z86.73 Personal history of transient ischemic attack (TIA), and cerebral infarction without residual deficits; F17.200 Nicotine dependence, unspecified, uncomplicated
CPT/HCPCS: 36415; 70450; 71045; 80053; 83880; 84484; 85025; 93005; 99285

== ENCOUNTER 2017-12-06 19:36 | Emergency (ER) | payer MEDICAID ==
[~2017-12-06] VITALS: Ht 185.4 cm; Wt 82.0 kg
[2017-12-06] MEDS ORDERED: OMNIPAQUE 350 MG/ML, 100ML BOTTLE ONE (20:05)
[2017-12-06] MEDS ORDERED: ALBUTEROL/IPRATROPIUM 2.5MG/0.5MG, 3 ML ONE (20:13)
[2017-12-06 20:28] LABS: BASOPHILS # (AUTO) 0.04 x10^3/uL (0-0.1); BASOPHILS % (AUTO) 1 % (0-1); EOSINOPHILS # (AUTO) 0.06 x10^3/uL (0-0.4); EOSINOPHILS % (AUTO) 1 % (1-7); LYMPHOCYTES # (AUTO) 2.77 x10^3/uL (1-3.4); LYMPHOCYTES % (AUTO) 41 % (22-44); MD NO; MEAN CORPUSCULAR HEMOGLOBIN 34.4 pg (27.5-34.5); MEAN CORPUSCULAR HGB CONC 33.4 g/dL (33.2-36.2); MEAN CORPUSCULAR VOLUME 103.1 fL (81-97); MEAN PLATELET VOLUME 8.1 fL (7.4-10.4); MONOCYTES # (AUTO) 0.86 x10^3/uL (0.2-0.8); MONOCYTES % (AUTO) 13 % (2-9); NEUTROPHILS # (AUTO) 2.97 x10^3/uL (1.8-6.8); NEUTROPHILS % (AUTO) 44 % (42-75); PLATELET COUNT 276 x10^3/uL (130-400); RED BLOOD COUNT 3.41 x10^6/uL (4.38-5.82); RED CELL DISTRIBUTION WIDTH 15.1 % (9.4-14.8)
[2017-12-06] MEDS ORDERED: SODIUM CHLORIDE FLUSH 10ML SYR IVF ONE (20:30)
[2017-12-06] MEDS ORDERED: ALBUTEROL/IPRATROPIUM 2.5MG/0.5MG, 3 ML NPPB ONE (20:30)
[2017-12-06] MEDS ORDERED: PLEASE ENTER HEIGHT AND WEIGHT MC SCH (20:30)
[2017-12-06 20:34] LABS: ALANINE AMINOTRANSFERASE 66 U/L (12-78); ALBUMIN 2.9 g/dL (3.4-5.0); ANION GAP 11 mmol/L (5-15); CHLORIDE 99 mmol/L (98-107)
[2017-12-06 20:39] LABS: ALKALINE PHOSPHATASE 237 U/L (45-117); BILIRUBIN,TOTAL 0.7 mg/dL (0.2-1.0); CREATININE 0.61 mg/dL (0.7-1.3); TOTAL PROTEIN 6.2 g/dL (6.4-8.2); TROPONIN I < 0.015 ng/mL (0.000-0.045)
[2017-12-06 22:31] VITALS: BP 132/81
== END 2017-12-06 22:33 | disposition home or self-care (01) ==
LOC: ED 21:22
DX: R10.84 Generalized abdominal pain (principal); R11.2 Nausea with vomiting, unspecified; J44.1 Chronic obstructive pulmonary disease with (acute) exacerbation; E78.00 Pure hypercholesterolemia, unspecified; I25.2 Old myocardial infarction; I11.0 Hypertensive heart disease with heart failure; I50.9 Heart failure, unspecified; Z90.49 Acquired absence of other specified parts of digestive tract; Z86.73 Personal history of transient ischemic attack (TIA), and cerebral infarction without residual deficits
CPT/HCPCS: 36415; 71045; 74177; 80053; 83690; 84484; 85025; 93005; 94640; 99285; J7512; Q9967; J7620

== ENCOUNTER 2017-12-30 18:40 | Emergency (ER) | payer MEDICAID ==
[~2017-12-30] VITALS: Ht 182.9 cm; Wt 75.0 kg
[2017-12-30] MEDS ORDERED: SODIUM CHLORIDE 0.9% 1,000 ML IV ONE (19:11)
[2017-12-30] MEDS ORDERED: LORazepam 2 MG/ML, 1ML ONE (19:28)
[2017-12-30] MEDS ORDERED: SODIUM CHLORIDE 0.9% 1,000ML IVBOLUS ONE (19:30)
[2017-12-30] MEDS: LORazepam 2 MG/ML, 1ML IVPush PRN (19:55)
[2017-12-30 20:00] LABS: BASOPHILS # (AUTO) 0.06 x10^3/uL (0-0.1); BASOPHILS % (AUTO) 1 % (0-1); EOSINOPHILS % (AUTO) 0 % (1-7); LYMPHOCYTES # (AUTO) 1.14 x10^3/uL (1-3.4); LYMPHOCYTES % (AUTO) 16 % (22-44); MD NO; MEAN CORPUSCULAR HEMOGLOBIN 33.5 pg (27.5-34.5); MEAN CORPUSCULAR HGB CONC 33.8 g/dL (33.2-36.2); MEAN CORPUSCULAR VOLUME 99.1 fL (81-97); MEAN PLATELET VOLUME 8.2 fL (7.4-10.4); MONOCYTES # (AUTO) 0.57 x10^3/uL (0.2-0.8); MONOCYTES % (AUTO) 8 % (2-9); NEUTROPHILS # (AUTO) 5.22 x10^3/uL (1.8-6.8); NEUTROPHILS % (AUTO) 75 % (42-75); PLATELET COUNT 248 x10^3/uL (130-400); RED BLOOD COUNT 3.75 x10^6/uL (4.38-5.82); RED CELL DISTRIBUTION WIDTH 15.8 % (9.4-14.8)
[2017-12-30 20:11] LABS: ANION GAP 13 mmol/L (5-15); CALCIUM 7.9 mg/dL (8.5-10.1); CHLORIDE 100 mmol/L (98-107); SALICYLATE LEVEL < 1.7 mg/dL (2.8-20.0)
[2017-12-30 20:15] LABS: ALANINE AMINOTRANSFERASE 60 U/L (12-78); ALKALINE PHOSPHATASE 335 U/L (45-117); TOTAL PROTEIN 6.3 g/dL (6.4-8.2)
[2017-12-30 20:17] LABS: ACETAMINOPHEN < 2 mcg/mL (10-30)
[2017-12-30 20:47] LABS: CLOSTRIDIUM DIFFICILE ANTIGEN POSITIVE; CLOSTRIDIUM DIFFICILE TOXIN NEGATIVE (Negative)
[2017-12-31 02:42] LABS: AMPHETAMINE SCREEN, URINE Negative (Negative); BARBITURATE SCREEN, URINE Negative (Negative); BENZODIAZEPINE SCREEN, URINE Positive (Negative); CANNABINOID SCREEN, URINE Negative (Negative); COCAINE SCREEN, URINE Negative (Negative); METHADONE SCREEN, URINE Negative (Negative); OPIATE SCREEN, URINE Negative (Negative)
[2017-12-31 02:50] LABS: CULTURE INDICATED? YES; MICROSCOPIC INDICATED
[2017-12-31] MEDS ORDERED: LORazepam 2 MG/ML, 1ML ONE (02:50)
[2017-12-31] MEDS: LORazepam 2 MG/ML, 1ML IVPush PRN (02:53)
[2017-12-31 05:05] VITALS: BP 110/83
== END 2017-12-31 05:08 | disposition home or self-care (01) ==
LOC: ED 19:22
DX: R19.7 Diarrhea, unspecified (principal); Z72.9 Problem related to lifestyle, unspecified; R45.851 Suicidal ideations; E78.00 Pure hypercholesterolemia, unspecified; F32.9 Major depressive disorder, single episode, unspecified; Z90.49 Acquired absence of other specified parts of digestive tract; Z79.899 Other long term (current) drug therapy
CPT/HCPCS: 36415; 74021; 80053; 80307; 80329; 81001; 83690; 85025; 87086; 87324; 87493; 89055; 96361; 96374; 96376; 99285; J2060; J7030; G0480

== ENCOUNTER 2017-12-31 05:07 | Emergency (ER) | payer MEDICAID ==
[~2017-12-31] VITALS: Ht 185.4 cm; Wt 75.0 kg
[2017-12-31 05:09] VITALS: BP 118/89
== END 2017-12-31 05:56 | disposition home or self-care (01) ==
LOC: ED 05:36
DX: S00.12XA Contusion of left eyelid and periocular area, initial encounter (principal); F17.200 Nicotine dependence, unspecified, uncomplicated; W19.XXXA Unspecified fall, initial encounter; Y93.01 Activity, walking, marching and hiking; Y92.89 Other specified places as the place of occurrence of the external cause; Y99.8 Other external cause status
CPT/HCPCS: 99281

== ENCOUNTER 2018-02-12 22:21 | Emergency (ER) | payer MEDICAID | END 2018-02-12 22:29 | LOC: ED 22:23 | DX: Z53.21 Procedure and treatment not carried out due to patient leaving prior to being seen by health care provider (principal) ==

== ENCOUNTER 2018-03-21 14:29 | Inpatient (IN) | payer MEDICAID ==
[~2018-03-21] VITALS: Ht 185.4 cm; Wt 67.3 kg
[2018-03-21] MEDS ORDERED: SODIUM CHLORIDE FLUSH 10ML SYR IVF ONE (16:00)
[2018-03-21] MEDS ORDERED: SODIUM CHLORIDE 0.9% 1,000ML IVBOLUS ONE ×2 (16:00→17:00)
[2018-03-21] MEDS ORDERED: AZITHROMYCIN 500 MG in SODIUM CHLORIDE 0.9% 250 ML IV ONE (16:00)
[2018-03-21] MEDS ORDERED: CEFTRIAXONE PMX 1GM/50ML 50 ML IVPB ONE (16:00)
[2018-03-21] MEDS ORDERED: THIAMINE 100MG TABLET PO ONE (16:00)
[2018-03-21] MEDS ORDERED: LORazepam 1MG TABLET PO ONE (16:00)
[2018-03-21] MEDS ORDERED: CEFTRIAXONE PMX 1GM/50ML 50 ML ONE ×2 (16:01→18:17)
[2018-03-21] MEDS ORDERED: THIAMINE 100MG TABLET ONE (16:01)
[2018-03-21] MEDS ORDERED: LORazepam 1MG TABLET ONE (16:02)
[2018-03-21] MEDS ORDERED: LOPERAMIDE 2 MG CAPSULE ONE (16:19)
[2018-03-21 16:22] LABS: ALANINE AMINOTRANSFERASE 34 U/L (12-78); ANION GAP 14 mmol/L (5-15); CALCIUM 8.1 mg/dL (8.5-10.1); CHLORIDE 100 mmol/L (98-107)
[2018-03-21 16:26] LABS: ALKALINE PHOSPHATASE 151 U/L (45-117); BILIRUBIN,TOTAL 0.5 mg/dL (0.2-1.0); TOTAL PROTEIN 6.9 g/dL (6.4-8.2); TROPONIN I 0.108 ng/mL (0.000-0.045)
[2018-03-21] MEDS ORDERED: LOPERAMIDE 2 MG CAPSULE PO ONE (16:30)
[2018-03-21 16:39] LABS: MEAN CORPUSCULAR HEMOGLOBIN 32.7 pg (27.5-34.5); MEAN CORPUSCULAR HGB CONC 33.3 g/dL (33.2-36.2); MEAN CORPUSCULAR VOLUME 98.3 fL (81-97); MEAN PLATELET VOLUME 7.8 fL (7.4-10.4); PLATELET COUNT 402 x10^3/uL (130-400); RED CELL DISTRIBUTION WIDTH 19.2 % (9.4-14.8)
[2018-03-21 16:40] LABS: BASOPHILS # (AUTO) 0.09 x10^3/uL (0-0.1); BASOPHILS % (AUTO) 1 % (0-1); EOSINOPHILS % (AUTO) 0 % (1-7); LYMPHOCYTES # (AUTO) 4.75 x10^3/uL (1-3.4); LYMPHOCYTES % (AUTO) 48 % (22-44); MD SCAN; MONOCYTES # (AUTO) 0.51 x10^3/uL (0.2-0.8); MONOCYTES % (AUTO) 5 % (2-9); NEUTROPHILS # (AUTO) 4.46 x10^3/uL (1.8-6.8); NEUTROPHILS % (AUTO) 46 % (42-75)
[2018-03-21] MEDS ORDERED: ASPIRIN 81 MG TABLET CHEW ONE (17:10)
[2018-03-21] MEDS ORDERED: ASPIRIN 81 MG TABLET CHEW PO ONE (17:30)
[2018-03-21] MEDS ORDERED: NITROGLYCERIN 0.4 MG BOTTLE (25 TABS) SL PRN (18:00)
[2018-03-21] MEDS: CEFTRIAXONE PMX 2GM/50ML 50 ML IV SCH (18:00)
[2018-03-21] MEDS: ENOXAPARIN 40 MG/0.4 ML SQ SCH (18:00)
[2018-03-21] MEDS ORDERED: morphine SULFATE 10 MG/ML, 1ML IVPush PRN (18:00)
[2018-03-21] MEDS ORDERED: TEMAZEPAM 15 MG CAPSULE PO PRN (18:00)
[2018-03-21] MEDS ORDERED: hydrALAzine 20 MG/ML, 1ML IVPush PRN (18:00)
[2018-03-21] MEDS ORDERED: ONDANSETRON 2MG/ML, 2ML IVPush PRN (18:00)
[2018-03-21] MEDS: methylPREDNISolone SOD SUCC 125 MG/2 ML IVPush SCH (18:00)
[2018-03-21 18:14] LABS: FREE T4 (FREE THYROXINE) 1.36 ng/dL (0.76-1.46); THYROID STIMULATING HORMONE 2.14 mIU/L (0.358-3.740)
[2018-03-21] MEDS ORDERED: ENOXAPARIN 40 MG/0.4 ML ONE (18:17)
[2018-03-21] MEDS ORDERED: methylPREDNISolone SOD SUCC 125 MG/2 ML ONE (18:17)
[2018-03-21 21:00] VITALS: BP 106/96
[2018-03-21] MEDS: SODIUM CHLORIDE 0.9% 1,000 ML IV SCH (22:43)
[2018-03-21 22:58] VITALS: BP 106/69
[2018-03-21] MEDS: NICOTINE 14MG/24 HR PATCH.TD24 TD SCH (23:02)
[2018-03-21] MEDS: PANTOPROZOLE 40MG TABLET PO SCH (23:03)
[2018-03-21] MEDS: METOPROLOL TARTRATE 50 MG TABLET PO SCH (23:03)
[2018-03-21] MEDS: SIMVASTATIN 20 MG TABLET PO SCH (23:04)
[2018-03-21 23:07] LABS: TROPONIN I 0.105 ng/mL (0.000-0.045)
[2018-03-21] MEDS: DOXYCYCLINE 100MG TABLET PO SCH (23:14)
[2018-03-22] MEDS: methylPREDNISolone SOD SUCC 125 MG/2 ML IVPush SCH ×4 (00:06→18:19)
[2018-03-22 01:32] VITALS: BP 123/79
[2018-03-22 05:16] LABS: ALBUMIN 2.6 g/dL (3.4-5.0); ANION GAP 9 mmol/L (5-15); CHLORIDE 102 mmol/L (98-107)
[2018-03-22 05:19] LABS: ALANINE AMINOTRANSFERASE 28 U/L (12-78); ALKALINE PHOSPHATASE 133 U/L (45-117); BILIRUBIN,TOTAL 0.5 mg/dL (0.2-1.0); CALCIUM 7.7 mg/dL (8.5-10.1); CHOLESTEROL, TOTAL 160 mg/dL (140-239); CREATININE 0.55 mg/dL (0.7-1.3); HDL CHOLESTEROL (DIRECT) 77 mg/dL (40-60); TOTAL PROTEIN 6.2 g/dL (6.4-8.2); TRIGLYCERIDES 53 mg/dL (50-200); VLDL CHOLESTEROL 11 mg/dL (0-25)
[2018-03-22 05:20] LABS: CHOL/HDL RATIO 2.1; HDL CHOL % 48 % (26-37); LDL CHOLESTEROL,CALCULATED 72 mg/dL (54-169); LDL/HDL RATIO 0.9 (0.5-3.0); TROPONIN I 0.067 ng/mL (0.000-0.045)
[2018-03-22] MEDS: ASPIRIN 81 MG TABLET EC PO SCH (06:24)
[2018-03-22] MEDS ORDERED: ALBUTEROL/IPRATROPIUM 2.5MG/0.5MG, 3 ML NPPB SCH (07:00)
[2018-03-22] MEDS ORDERED: ALBUTEROL/IPRATROPIUM 2.5MG/0.5MG, 3 ML NPPB PRN (08:00)
[2018-03-22] MEDS ORDERED: MAGNESIUM SULFATE PMX 4GM/100M 100 ML IV ONE (08:00)
[2018-03-22 08:34] VITALS: BP 138/87
[2018-03-22] MEDS: SODIUM CHLORIDE 0.9% 1,000 ML IV SCH ×2 (09:00→19:00)
[2018-03-22] MEDS: METOPROLOL TARTRATE 50 MG TABLET PO SCH ×2 (09:20→21:50)
[2018-03-22] MEDS: DOXYCYCLINE 100MG TABLET PO SCH ×2 (09:21→21:49)
[2018-03-22] MEDS: PANTOPROZOLE 40MG TABLET PO SCH ×2 (09:21→21:49)
[2018-03-22 09:45] LABS: CLOSTRIDIUM DIFFICILE ANTIGEN POSITIVE; CLOSTRIDIUM DIFFICILE TOXIN POSITIVE (Negative)
[2018-03-22 13:00] VITALS: BP 139/83
[2018-03-22] MEDS: VANCOMYCIN 50 MG/ML ORAL SUSP PO SCH ×2 (14:24→21:50)
[2018-03-22] MEDS: CEFTRIAXONE PMX 2GM/50ML 50 ML IV SCH (18:19)
[2018-03-22 19:30] VITALS: BP 126/80
[2018-03-22] MEDS: NICOTINE 14MG/24 HR PATCH.TD24 TD SCH (20:00)
[2018-03-22] MEDS: ENOXAPARIN 40 MG/0.4 ML SQ SCH (21:49)
[2018-03-22] MEDS: SIMVASTATIN 20 MG TABLET PO SCH (21:50)
[2018-03-23] MEDS: methylPREDNISolone SOD SUCC 125 MG/2 ML IVPush SCH ×4 (01:14→18:12)
[2018-03-23] MEDS: VANCOMYCIN 50 MG/ML ORAL SUSP PO SCH ×4 (01:14→20:18)
[2018-03-23 01:26] VITALS: BP 110/70
[2018-03-23 05:44] LABS: CHLORIDE 92 mmol/L (98-107)
[2018-03-23 05:54] LABS: ALANINE AMINOTRANSFERASE 27 U/L (12-78); ALBUMIN 2.7 g/dL (3.4-5.0); ALKALINE PHOSPHATASE 129 U/L (45-117); ANION GAP 8 mmol/L (5-15); BILIRUBIN,TOTAL 0.8 mg/dL (0.2-1.0); CALCIUM 7.7 mg/dL (8.5-10.1); CREATININE 0.45 mg/dL (0.7-1.3); TOTAL PROTEIN 6.3 g/dL (6.4-8.2)
[2018-03-23 05:56] LABS: BASOPHILS # (AUTO) 0.01 x10^3/uL (0-0.1); BASOPHILS % (AUTO) 0 % (0-1); EOSINOPHILS % (AUTO) 0 % (1-7); LYMPHOCYTES # (AUTO) 0.74 x10^3/uL (1-3.4); LYMPHOCYTES % (AUTO) 20 % (22-44); MD SCAN; MEAN CORPUSCULAR HEMOGLOBIN 32.6 pg (27.5-34.5); MEAN CORPUSCULAR HGB CONC 33.1 g/dL (33.2-36.2); MEAN CORPUSCULAR VOLUME 98.4 fL (81-97); MONOCYTES # (AUTO) 0.18 x10^3/uL (0.2-0.8); MONOCYTES % (AUTO) 5 % (2-9); NEUTROPHILS # (AUTO) 2.88 x10^3/uL (1.8-6.8); NEUTROPHILS % (AUTO) 76 % (42-75); PLATELET COUNT 287 x10^3/uL (130-400); RED BLOOD COUNT 3.68 x10^6/uL (4.38-5.82); RED CELL DISTRIBUTION WIDTH 18.2 % (9.4-14.8)
[2018-03-23] MEDS: ASPIRIN 81 MG TABLET EC PO SCH (06:32)
[2018-03-23 07:50] VITALS: BP 108/73
[2018-03-23] MEDS: METOPROLOL TARTRATE 50 MG TABLET PO SCH ×2 (07:52→20:18)
[2018-03-23] MEDS: DOXYCYCLINE 100MG TABLET PO SCH ×2 (07:52→20:18)
[2018-03-23] MEDS: PANTOPROZOLE 40MG TABLET PO SCH ×2 (07:52→20:18)
[2018-03-23] MEDS ORDERED: MAGNESIUM SULF. PMX 20GM/500ML 50 ML IV ONE (09:00)
[2018-03-23] MEDS ORDERED: POTASSIUM PHOSPHATE 44 MEQ in SODIUM CHLORIDE 0.9% 500 ML IV ONE (09:00)
[2018-03-23] MEDS: HYDROcodone/APAP 5/325 TABLET PO PRN ×2 (10:10→20:18)
[2018-03-23 15:04] VITALS: BP 114/75
[2018-03-23] MEDS: CEFTRIAXONE PMX 2GM/50ML 50 ML IV SCH (18:12)
[2018-03-23 18:37] VITALS: BP 116/80
[2018-03-23] MEDS: NICOTINE 14MG/24 HR PATCH.TD24 TD SCH (20:00)
[2018-03-23] MEDS: ENOXAPARIN 40 MG/0.4 ML SQ SCH (20:00)
[2018-03-23] MEDS: SIMVASTATIN 20 MG TABLET PO SCH (20:19)
[2018-03-24] MEDS: methylPREDNISolone SOD SUCC 125 MG/2 ML IVPush SCH ×3 (00:26→11:42)
[2018-03-24 00:58] VITALS: BP 100/59
[2018-03-24] MEDS: VANCOMYCIN 50 MG/ML ORAL SUSP PO SCH ×3 (01:50→13:26)
[2018-03-24 05:34] LABS: ANION GAP 9 mmol/L (5-15); CALCIUM 7.9 mg/dL (8.5-10.1); CHLORIDE 93 mmol/L (98-107)
[2018-03-24 05:38] LABS: CREATININE 0.53 mg/dL (0.7-1.3)
[2018-03-24] MEDS: ASPIRIN 81 MG TABLET EC PO SCH (05:46)
[2018-03-24] MEDS: HYDROcodone/APAP 5/325 TABLET PO PRN (05:46)
[2018-03-24 07:18] VITALS: BP 112/74
[2018-03-24] MEDS: METOPROLOL TARTRATE 50 MG TABLET PO SCH (07:32)
[2018-03-24] MEDS: PANTOPROZOLE 40MG TABLET PO SCH (07:32)
[2018-03-24] MEDS: DOXYCYCLINE 100MG TABLET PO SCH (07:32)
[2018-03-24] MEDS ORDERED: MAGNESIUM OXIDE 400 MG TABLET PO SCH (09:00)
[2018-03-24] MEDS: POTASSIUM CHLORIDE 20 MEQ TAB.ER.PRT PO SCH ×3 (09:11→13:26)
[2018-03-24 14:30] VITALS: BP 123/79
== END 2018-03-24 15:46 | disposition left against medical advice (07) | DRG 871 ==
LOC: ED 15:02 → EDIP 17:13 → SUATTDRO 17:13 → 5SO 20:01 → 3NE 03-22 23:24
PROVIDERS: ADMIT Internal Medicine; ATTEND Internal Medicine
DX: A41.9 Sepsis, unspecified organism (principal); J15.9 Unspecified bacterial pneumonia; I24.8 Other forms of acute ischemic heart disease; I11.0 Hypertensive heart disease with heart failure; E87.2 Acidosis; E83.39 Other disorders of phosphorus metabolism; E83.42 Hypomagnesemia; I50.9 Heart failure, unspecified; R45.851 Suicidal ideations; J44.1 Chronic obstructive pulmonary disease with (acute) exacerbation; J44.0 Chronic obstructive pulmonary disease with (acute) lower respiratory infection; M48.54XA Collapsed vertebra, not elsewhere classified, thoracic region, initial encounter for fracture; J98.11 Atelectasis; K76.0 Fatty (change of) liver, not elsewhere classified; E86.0 Dehydration; I48.0 Paroxysmal atrial fibrillation; D47.3 Essential (hemorrhagic) thrombocythemia; E78.00 Pure hypercholesterolemia, unspecified; E78.5 Hyperlipidemia, unspecified; E87.6 Hypokalemia; F17.200 Nicotine dependence, unspecified, uncomplicated; F12.90 Cannabis use, unspecified, uncomplicated; F14.90 Cocaine use, unspecified, uncomplicated; F32.9 Major depressive disorder, single episode, unspecified; G89.29 Other chronic pain; I25.2 Old myocardial infarction; Z82.49 Family history of ischemic heart disease and other diseases of the circulatory system; Z86.711 Personal history of pulmonary embolism; Z86.73 Personal history of transient ischemic attack (TIA), and cerebral infarction without residual deficits; Z91.14 Patient's other noncompliance with medication regimen; Z99.81 Dependence on supplemental oxygen; Z90.49 Acquired absence of other specified parts of digestive tract; Z90.89 Acquired absence of other organs
CPT/HCPCS: 36415; 71045; 71275; 80048; 80053; 80061; 83605; 83690; 83735; 84100; 84439; 84443; 84484; 85025; 87040; 87046; 87324; 87427; 89055; 93005; 94640; 96365; 96368; J0456; J0696; J1650; J3370; J7620; J2930; J3475; J7030; J7040; J7050

== ENCOUNTER 2018-03-24 23:38 | Emergency (ER) | payer MEDICAID ==
[~2018-03-24] VITALS: Ht 177.8 cm; Wt 70.0 kg
[2018-03-25 02:51] LABS: BASOPHILS # (AUTO) 0.01 x10^3/uL (0-0.1); BASOPHILS % (AUTO) 0 % (0-1); EOSINOPHILS % (AUTO) 0 % (1-7); LYMPHOCYTES % (AUTO) 10 % (22-44); MD NO; MEAN CORPUSCULAR HGB CONC 33.4 g/dL (33.2-36.2); MEAN PLATELET VOLUME 8.8 fL (7.4-10.4); MONOCYTES # (AUTO) 0.97 x10^3/uL (0.2-0.8); MONOCYTES % (AUTO) 9 % (2-9); NEUTROPHILS # (AUTO) 9.36 x10^3/uL (1.8-6.8); NEUTROPHILS % (AUTO) 82 % (42-75); PLATELET COUNT 271 x10^3/uL (130-400); RED BLOOD COUNT 3.93 x10^6/uL (4.38-5.82)
[2018-03-25 03:02] LABS: ALBUMIN 3.4 g/dL (3.4-5.0); ANION GAP 11 mmol/L (5-15); CALCIUM 9.2 mg/dL (8.5-10.1); CHLORIDE 95 mmol/L (98-107)
[2018-03-25 03:04] LABS: CREATININE 0.84 mg/dL (0.7-1.3)
[2018-03-25] MEDS ORDERED: OMNIPAQUE 350 MG/ML, 100ML BOTTLE ONE (03:25)
[2018-03-25] MEDS ORDERED: ACETAMINOPHEN 500 MG TABLET ONE (04:12)
[2018-03-25 04:30] VITALS: BP 124/86
[2018-03-25] MEDS ORDERED: ACETAMINOPHEN 500 MG TABLET PO ONE (04:30)
== END 2018-03-25 04:32 | disposition home or self-care (01) ==
LOC: ED 23:59
DX: S42.415A Nondisplaced simple supracondylar fracture without intercondylar fracture of left humerus, initial encounter for closed fracture (principal); S22.32XA Fracture of one rib, left side, initial encounter for closed fracture; S09.90XA Unspecified injury of head, initial encounter; J44.9 Chronic obstructive pulmonary disease, unspecified; E78.00 Pure hypercholesterolemia, unspecified; I25.2 Old myocardial infarction; I50.9 Heart failure, unspecified; I11.0 Hypertensive heart disease with heart failure; E78.5 Hyperlipidemia, unspecified; I48.91 Unspecified atrial fibrillation; Z79.899 Other long term (current) drug therapy; W18.30XA Fall on same level, unspecified, initial encounter; Y93.55 Activity, bike riding; Y92.410 Unspecified street and highway as the place of occurrence of the external cause; Y99.8 Other external cause status
CPT/HCPCS: 29240; 36415; 70450; 71101; 71260; 73030; 74177; 80048; 80307; 82040; 85025; 93005; 99285; Q9967

== ENCOUNTER 2018-03-27 13:39 | Inpatient (IN) | payer MEDICAID ==
[~2018-03-27] VITALS: Ht 185.4 cm; Wt 67.3 kg
[2018-03-27] MEDS ORDERED: SODIUM CHLORIDE FLUSH 10ML SYR IVF ONE (14:00)
[2018-03-27] MEDS ORDERED: SODIUM CHLORIDE 0.9% 1,000ML IVBOLUS ONE ×3 (14:00→15:30)
[2018-03-27] MEDS ORDERED: LORazepam 2 MG/ML, 1ML IVPush ONE (14:00)
[2018-03-27] MEDS ORDERED: LORazepam 2 MG/ML, 1ML ONE (14:08)
[2018-03-27 14:28] LABS: BASOPHILS # (AUTO) 0.05 x10^3/uL (0-0.1); BASOPHILS % (AUTO) 1 % (0-1); EOSINOPHILS # (AUTO) 0.03 x10^3/uL (0-0.4); EOSINOPHILS % (AUTO) 0 % (1-7); LYMPHOCYTES # (AUTO) 1.34 x10^3/uL (1-3.4); LYMPHOCYTES % (AUTO) 15 % (22-44); MD NO; MEAN CORPUSCULAR HEMOGLOBIN 32.9 pg (27.5-34.5); MEAN CORPUSCULAR HGB CONC 33.6 g/dL (33.2-36.2); MEAN CORPUSCULAR VOLUME 98.2 fL (81-97); MEAN PLATELET VOLUME 8.6 fL (7.4-10.4); MONOCYTES # (AUTO) 1.09 x10^3/uL (0.2-0.8); MONOCYTES % (AUTO) 12 % (2-9); NEUTROPHILS # (AUTO) 6.49 x10^3/uL (1.8-6.8); NEUTROPHILS % (AUTO) 72 % (42-75); PLATELET COUNT 208 x10^3/uL (130-400); RED BLOOD COUNT 3.57 x10^6/uL (4.38-5.82); RED CELL DISTRIBUTION WIDTH 19.2 % (9.4-14.8)
[2018-03-27 14:32] LABS: ANION GAP 17 mmol/L (5-15); CALCIUM 8.1 mg/dL (8.5-10.1); CHLORIDE 94 mmol/L (98-107); CREATININE 0.61 mg/dL (0.7-1.3)
[2018-03-27 14:36] LABS: TROPONIN I 0.091 ng/mL (0.000-0.045)
[2018-03-27] MEDS ORDERED: NS + 40MEQ KCL 1,000 ML IV ONE ×2 (15:00→15:45)
[2018-03-27] MEDS ORDERED: AZITHROMYCIN 500 MG in SODIUM CHLORIDE 0.9% 250 ML IVPB ONE (15:00)
[2018-03-27] MEDS ORDERED: PIPERACILLIN/TAZO/PMX 3.375GM 50 ML IV ONE (15:00)
[2018-03-27] MEDS ORDERED: CEFTRIAXONE PMX 1GM/50ML 50 ML IVPB ONE (15:00)
[2018-03-27] MEDS ORDERED: ASPIRIN 81 MG TABLET CHEW PO ONE (15:00)
[2018-03-27] MEDS ORDERED: PIPERACILLIN/TAZO/PMX 3.375GM 50 ML ONE (15:45)
[2018-03-27] MEDS ORDERED: ASPIRIN 81 MG TABLET CHEW ONE (15:45)
[2018-03-27] MEDS ORDERED: ENOXAPARIN 40 MG/0.4 ML ONE (15:46)
[2018-03-27 15:59] LABS: CLOSTRIDIUM DIFFICILE ANTIGEN POSITIVE; CLOSTRIDIUM DIFFICILE TOXIN NEGATIVE (Negative)
[2018-03-27] MEDS ORDERED: LORazepam 2 MG/ML, 1ML IV PRN ×4 (16:00)
[2018-03-27] MEDS ORDERED: LORazepam 1MG TABLET PO PRN ×3 (16:00)
[2018-03-27] MEDS: ENOXAPARIN 40 MG/0.4 ML SQ SCH (16:10)
[2018-03-27] MEDS ORDERED: CEFTRIAXONE PMX 2GM/50ML 50 ML ONE (17:25)
[2018-03-27] MEDS: CEFTRIAXONE PMX 2GM/50ML 50 ML IV SCH (17:26)
[2018-03-27 18:23] VITALS: BP 103/66
[2018-03-27] MEDS: LACTOBACILLUS CHEW TABLET PO SCH ×2 (18:41→22:46)
[2018-03-27] MEDS ORDERED: [UNRECOGNIZED DRUG - OTHER] IV SCH (19:00)
[2018-03-27] MEDS ORDERED: MVI ADULT IV SCH (19:00)
[2018-03-27] MEDS ORDERED: FOLIC ACID IV SCH (19:00)
[2018-03-27] MEDS ORDERED: POTASSIUM CHLORIDE IV SCH (19:00)
[2018-03-27] MEDS: [UNRECOGNIZED DRUG - OTHER] IV SCH (22:45)
[2018-03-27] MEDS: POTASSIUM CHLORIDE IV SCH (22:45)
[2018-03-27] MEDS: MVI ADULT IV SCH (22:45)
[2018-03-27] MEDS: FOLIC ACID IV SCH (22:45)
[2018-03-27] MEDS: METRONIDAZOLE PMX 500MG/100ML 100 ML IV SCH (22:46)
[2018-03-27] MEDS: DIVALPROEX 125 MG CAP.SPRINK PO SCH (22:46)
[2018-03-28 01:47] VITALS: BP 93/61
[2018-03-28 04:13] LABS: MICROSCOPIC NOT IND
[2018-03-28 04:27] LABS: CULTURE INDICATED? NO
[2018-03-28] MEDS: METRONIDAZOLE PMX 500MG/100ML 100 ML IV SCH ×3 (05:20→22:17)
[2018-03-28] MEDS: LORazepam 0.5MG TABLET PO PRN ×2 (05:20→15:05)
[2018-03-28 06:03] LABS: ANION GAP 11 mmol/L (5-15); CALCIUM 7.1 mg/dL (8.5-10.1); CHLORIDE 103 mmol/L (98-107)
[2018-03-28 06:06] LABS: CREATININE 0.53 mg/dL (0.7-1.3)
[2018-03-28 08:13] VITALS: BP 106/64
[2018-03-28] MEDS ORDERED: POTASSIUM CHLORIDE 20 MEQ TAB.ER.PRT PO ONE (08:30)
[2018-03-28] MEDS: LACTOBACILLUS CHEW TABLET PO SCH ×3 (08:46→22:15)
[2018-03-28] MEDS: DIVALPROEX 125 MG CAP.SPRINK PO SCH ×2 (08:46→22:16)
[2018-03-28 13:22] VITALS: BP 100/67
[2018-03-28] MEDS: CEFTRIAXONE PMX 2GM/50ML 50 ML IV SCH (16:00)
[2018-03-28] MEDS: ENOXAPARIN 40 MG/0.4 ML SQ SCH (16:36)
[2018-03-28 19:13] VITALS: BP 93/60
[2018-03-28] MEDS: [UNRECOGNIZED DRUG - OTHER] IV SCH (22:28)
[2018-03-28] MEDS: FOLIC ACID IV SCH (22:28)
[2018-03-28] MEDS: POTASSIUM CHLORIDE IV SCH (22:28)
[2018-03-28] MEDS: MVI ADULT IV SCH (22:28)
[2018-03-29 00:31] VITALS: BP 91/56
[2018-03-29] MEDS: METRONIDAZOLE PMX 500MG/100ML 100 ML IV SCH ×3 (06:14→23:04)
[2018-03-29 06:19] LABS: CHLORIDE 108 mmol/L (98-107)
[2018-03-29 06:25] LABS: ANION GAP 9 mmol/L (5-15); CREATININE 0.48 mg/dL (0.7-1.3)
[2018-03-29] MEDS: LACTOBACILLUS CHEW TABLET PO SCH ×3 (07:53→21:31)
[2018-03-29] MEDS: DIVALPROEX 125 MG CAP.SPRINK PO SCH ×2 (07:53→21:30)
[2018-03-29] MEDS: POTASSIUM CHLORIDE 20 MEQ TAB.ER.PRT PO SCH ×2 (07:54→16:25)
[2018-03-29 08:28] VITALS: BP 91/56
[2018-03-29 13:56] VITALS: BP 101/65
[2018-03-29] MEDS: CEFTRIAXONE PMX 2GM/50ML 50 ML IV SCH (14:58)
[2018-03-29] MEDS: ENOXAPARIN 40 MG/0.4 ML SQ SCH (16:23)
[2018-03-29 21:11] VITALS: BP 110/72
[2018-03-30 01:41] VITALS: BP 124/80
[2018-03-30] MEDS: METRONIDAZOLE PMX 500MG/100ML 100 ML IV SCH ×3 (06:25→15:53)
[2018-03-30 06:37] VITALS: BP 122/75
[2018-03-30] MEDS: LACTOBACILLUS CHEW TABLET PO SCH ×3 (09:19→22:50)
[2018-03-30] MEDS: DIVALPROEX 125 MG CAP.SPRINK PO SCH ×2 (09:20→22:50)
[2018-03-30] MEDS: POTASSIUM CHLORIDE 20 MEQ TAB.ER.PRT PO SCH (09:20)
[2018-03-30] MEDS ORDERED: ONDANSETRON ODT 4 MG PO PRN (11:00)
[2018-03-30] MEDS ORDERED: POTASSIUM CHLORIDE 40 MEQ in SODIUM CHLORIDE 0.9% 500 ML IV ONE (11:00)
[2018-03-30] MEDS ORDERED: MAGNESIUM SULFATE PMX 2GM/50ML 50 ML IV ONE (11:00)
[2018-03-30] MEDS: MORPHINE SULFATE 4 MG/ML, 1ML IVPush PRN ×3 (11:43→22:50)
[2018-03-30 12:06] VITALS: BP 119/76
[2018-03-30] MEDS: CEFTRIAXONE PMX 2GM/50ML 50 ML IV SCH (17:22)
[2018-03-30] MEDS: ENOXAPARIN 40 MG/0.4 ML SQ SCH (17:22)
[2018-03-30 19:45] VITALS: BP 106/71
[2018-03-31] MEDS: METRONIDAZOLE PMX 500MG/100ML 100 ML IV SCH ×2 (00:26→08:28)
[2018-03-31 01:27] VITALS: BP 124/77
[2018-03-31 07:01] VITALS: BP 125/81
[2018-03-31] MEDS: DIVALPROEX 125 MG CAP.SPRINK PO SCH ×2 (08:28→19:35)
[2018-03-31] MEDS: LACTOBACILLUS CHEW TABLET PO SCH ×3 (08:28→19:34)
[2018-03-31] MEDS: metroNIDAZOLE 500 MG TABLET PO SCH ×2 (11:00→19:35)
[2018-03-31] MEDS ORDERED: CEFTRIAXONE PMX 2GM/50ML 50 ML IV ONE (11:30)
[2018-03-31 12:06] LABS: BASOPHILS # (AUTO) 0.02 x10^3/uL (0-0.1); BASOPHILS % (AUTO) 0 % (0-1); EOSINOPHILS # (AUTO) 0.06 x10^3/uL (0-0.4); EOSINOPHILS % (AUTO) 1 % (1-7); LYMPHOCYTES # (AUTO) 1.42 x10^3/uL (1-3.4); LYMPHOCYTES % (AUTO) 29 % (22-44); MD NO; MEAN CORPUSCULAR HEMOGLOBIN 33.6 pg (27.5-34.5); MEAN CORPUSCULAR HGB CONC 33.7 g/dL (33.2-36.2); MEAN CORPUSCULAR VOLUME 99.6 fL (81-97); MEAN PLATELET VOLUME 7.7 fL (7.4-10.4); MONOCYTES % (AUTO) 14 % (2-9); NEUTROPHILS # (AUTO) 2.76 x10^3/uL (1.8-6.8); NEUTROPHILS % (AUTO) 56 % (42-75); PLATELET COUNT 165 x10^3/uL (130-400); RED BLOOD COUNT 3.38 x10^6/uL (4.38-5.82); RED CELL DISTRIBUTION WIDTH 20.2 % (9.4-14.8)
[2018-03-31 12:16] LABS: ANION GAP 5 mmol/L (5-15); CALCIUM 8.3 mg/dL (8.5-10.1); CHLORIDE 107 mmol/L (98-107); CREATININE 0.51 mg/dL (0.7-1.3)
[2018-03-31 12:42] VITALS: BP 125/85
[2018-03-31] MEDS: ENOXAPARIN 40 MG/0.4 ML SQ SCH (16:57)
[2018-03-31 18:39] VITALS: BP 132/80
[2018-04-01] MEDS: metroNIDAZOLE 500 MG TABLET PO SCH ×3 (02:55→20:25)
[2018-04-01 02:58] VITALS: BP 124/79
[2018-04-01 07:35] VITALS: BP 128/78
[2018-04-01] MEDS: LACTOBACILLUS CHEW TABLET PO SCH ×3 (08:56→20:25)
[2018-04-01] MEDS: DIVALPROEX 125 MG CAP.SPRINK PO SCH ×2 (08:57→20:25)
[2018-04-01 13:00] VITALS: BP 123/79
[2018-04-01] MEDS: ENOXAPARIN 40 MG/0.4 ML SQ SCH (16:50)
[2018-04-01 19:43] VITALS: BP 118/78
[2018-04-01] MEDS: MORPHINE SULFATE 4 MG/ML, 1ML IVPush PRN (21:19)
[2018-04-02 02:09] VITALS: BP 130/78
[2018-04-02] MEDS: metroNIDAZOLE 500 MG TABLET PO SCH ×3 (04:15→21:17)
[2018-04-02 07:58] VITALS: BP 134/72
[2018-04-02] MEDS: DIVALPROEX 125 MG CAP.SPRINK PO SCH ×2 (08:29→21:17)
[2018-04-02] MEDS: LACTOBACILLUS CHEW TABLET PO SCH ×3 (08:29→21:00)
[2018-04-02 14:05] VITALS: BP 130/76
[2018-04-02] MEDS: ENOXAPARIN 40 MG/0.4 ML SQ SCH (17:07)
[2018-04-02 20:08] VITALS: BP 108/73
[2018-04-02] MEDS ORDERED: OXYcodone IR 5MG TABLET PO PRN (23:00)
[2018-04-03 03:55] VITALS: BP 97/61
[2018-04-03] MEDS: metroNIDAZOLE 500 MG TABLET PO SCH ×2 (04:54→12:23)
[2018-04-03] MEDS: DIVALPROEX 125 MG CAP.SPRINK PO SCH (08:17)
[2018-04-03] MEDS: LACTOBACILLUS CHEW TABLET PO SCH (08:17)
[2018-04-03 08:42] VITALS: BP 115/74
[2018-04-03] MEDS ORDERED: METR500T PO (12:02)
[2018-04-03] MEDS ORDERED: POTA20PA25 PO (12:02)
== END 2018-04-03 14:21 | disposition home or self-care (01) | DRG 280 ==
LOC: EDIP 15:30 → ED 15:51 → 4EST 18:09
PROVIDERS: ADMIT Internal Medicine; ATTEND Internal Medicine
DX: I21.4 Non-ST elevation (NSTEMI) myocardial infarction (principal); J69.0 Pneumonitis due to inhalation of food and vomit; I95.9 Hypotension, unspecified; I11.0 Hypertensive heart disease with heart failure; E87.1 Hypo-osmolality and hyponatremia; A04.72 Enterocolitis due to Clostridium difficile, not specified as recurrent; Z99.81 Dependence on supplemental oxygen; E86.0 Dehydration; J44.1 Chronic obstructive pulmonary disease with (acute) exacerbation; I48.0 Paroxysmal atrial fibrillation; F10.229 Alcohol dependence with intoxication, unspecified; F41.9 Anxiety disorder, unspecified; R74.8 Abnormal levels of other serum enzymes; R79.89 Other specified abnormal findings of blood chemistry; Z66 Do not resuscitate; F10.20 Alcohol dependence, uncomplicated; E78.00 Pure hypercholesterolemia, unspecified; E78.5 Hyperlipidemia, unspecified; E87.6 Hypokalemia; Z59.0 Homelessness; Z79.82 Long term (current) use of aspirin; Z82.49 Family history of ischemic heart disease and other diseases of the circulatory system; Z86.711 Personal history of pulmonary embolism; Z86.73 Personal history of transient ischemic attack (TIA), and cerebral infarction without residual deficits; Z91.19 Patient's noncompliance with other medical treatment and regimen; Z90.49 Acquired absence of other specified parts of digestive tract
CPT/HCPCS: 36415; 71045; 80048; 81003; 82040; 83605; 83735; 83880; 84145; 84484; 85025; 87040; 87324; 87493; 89055; 93005; 93970; 96365; 96367; 96372; 96375; J0696; J1650; J2543; J3475; J3480; J2060; J7030; J7040

== ENCOUNTER 2018-04-15 23:25 | Inpatient (IN) | payer MEDICAID ==
[~2018-04-15] VITALS: Ht 185.4 cm; Wt 55.4 kg
[~2018-04-15 23:25] MED LIST changes: +METR500T PO; +POTA20PA25 PO
[2018-04-16] MEDS ORDERED: SODIUM CHLORIDE 0.9% 1,000ML IVBOLUS ONE
[2018-04-16 00:19] LABS: ALANINE AMINOTRANSFERASE 25 U/L (12-78); ALBUMIN 2.8 g/dL (3.4-5.0); ANION GAP 11 mmol/L (5-15); CALCIUM 7.9 mg/dL (8.5-10.1); CHLORIDE 103 mmol/L (98-107); CREATININE 0.54 mg/dL (0.7-1.3)
[2018-04-16 00:23] LABS: MEAN CORPUSCULAR HEMOGLOBIN 33.3 pg (27.5-34.5); MEAN CORPUSCULAR HGB CONC 33.3 g/dL (33.2-36.2); MEAN CORPUSCULAR VOLUME 99.9 fL (81-97); MEAN PLATELET VOLUME 7.7 fL (7.4-10.4); PLATELET COUNT 225 x10^3/uL (130-400); RED BLOOD COUNT 3.36 x10^6/uL (4.38-5.82); RED CELL DISTRIBUTION WIDTH 18.7 % (9.4-14.8)
[2018-04-16 00:24] LABS: ALKALINE PHOSPHATASE 95 U/L (45-117); BILIRUBIN,TOTAL 0.3 mg/dL (0.2-1.0)
[2018-04-16 00:37] LABS: MD YES
[2018-04-16 00:43] LABS: BASOS#(MANUAL) 0.05 x10^3/uL (0-0.1); BASOS% (MANUAL) 1 % (0-1); LYMPH#(MANUAL) 2.59 x10^3/uL (1-3.4); LYMPHS% (MANUAL) 48 % (22-44); MONOS#(MANUAL) 0.22 x10^3/uL (0.3-2.7); MONOS% (MANUAL) 4 % (2-9); REACTIVE LYMPHS # (MANUAL) 0.11 x10^3/uL (0-0); REACTIVE LYMPHS % (MANUAL) 2 % (0-0); SEG#(MANUAL) 2.43 x10^3/uL (1.8-6.8); SEGS% (MANUAL) 45 % (42-75)
[2018-04-16 00:44] LABS: ANISOCYTOSIS 1+
[2018-04-16 00:45] LABS: <PLATELET ESTIMATE> ADEQUATE; <PLT MORPHOLOGY> NORMAL PLT MORPH; HYPOCHROMIA 1+
[2018-04-16] MEDS ORDERED: OMNIPAQUE 350 MG/ML, 100ML BOTTLE ONE (01:10)
[2018-04-16 02:29] LABS: AMPHETAMINE SCREEN, URINE Negative (Negative); BARBITURATE SCREEN, URINE Negative (Negative); CANNABINOID SCREEN, URINE Negative (Negative); METHADONE SCREEN, URINE Negative (Negative)
[2018-04-16] MEDS ORDERED: VANCOMYCIN 50 MG/ML ORAL SUSP PO ONE (02:30)
[2018-04-16 02:31] LABS: BENZODIAZEPINE SCREEN, URINE Negative (Negative); COCAINE SCREEN, URINE Negative (Negative); OPIATE SCREEN, URINE Negative (Negative)
[2018-04-16] MEDS: SODIUM CHLORIDE 0.9% 1,000 ML IV SCH ×2 (04:43→20:59)
[2018-04-16] MEDS ORDERED: ONDANSETRON 2MG/ML, 2ML IVPush PRN (05:00)
[2018-04-16] MEDS ORDERED: BISACODYL 10 MG SUPP PR PRN (05:00)
[2018-04-16] MEDS ORDERED: ACETAMINOPHEN 325 MG TABLET PO PRN (05:00)
[2018-04-16] MEDS ORDERED: DOCUSATE 100 MG CAPSULE PO PRN (05:00)
[2018-04-16] MEDS ORDERED: morphine SULFATE 10 MG/ML, 1ML IVPush PRN (05:00)
[2018-04-16] MEDS ORDERED: hydrALAzine 20 MG/ML, 1ML IVPush PRN (05:00)
[2018-04-16] MEDS ORDERED: LORazepam 0.5MG TABLET PO PRN (05:00)
[2018-04-16] MEDS ORDERED: LORazepam 1MG TABLET PO PRN ×3 (05:00)
[2018-04-16] MEDS ORDERED: PROMETHAZINE 25 MG/ML, 1ML IM PRN (05:00)
[2018-04-16] MEDS ORDERED: POTASSIUM CHLORIDE 40 MEQ in SODIUM CHLORIDE 0.9% 500 ML IV ONE (05:00)
[2018-04-16] MEDS ORDERED: LORazepam 2 MG/ML, 1ML IV PRN ×5 (05:00)
[2018-04-16] MEDS ORDERED: POLYETHYLENE GLYCOL 17 GM PACKET PO PRN (05:00)
[2018-04-16] MEDS ORDERED: ONDANSETRON ODT 4 MG PO PRN (05:00)
[2018-04-16] MEDS: VANCOMYCIN 50 MG/ML ORAL SUSP PO SCH ×4 (05:30→23:43)
[2018-04-16 06:04] LABS: HEMOGLOBIN A1C 4.5 % (4.2-6.3)
[2018-04-16 06:25] LABS: FREE T4 (FREE THYROXINE) 1.15 ng/dL (0.76-1.46); THYROID STIMULATING HORMONE 3.41 mIU/L (0.358-3.740)
[2018-04-16] MEDS: NICOTINE 7 MG/24 HR PATCH.TD24 TD SCH (08:00)
[2018-04-16] MEDS: HEPARIN 5,000 UNITS/ML, 1ML SQ SCH ×3 (08:00→23:44)
[2018-04-16 08:32] VITALS: BP 106/75
[2018-04-16 11:40] LABS: MICROSCOPIC NOT IND
[2018-04-16 11:43] LABS: CULTURE INDICATED? NO
[2018-04-16] MEDS: POTASSIUM CHLORIDE 20 MEQ, MAGNESIUM SULFATE 1 GM, FOLIC ACID 1 MG, THIAMINE 200 MG, MV... IV SCH (12:43)
[2018-04-16 13:24] LABS: CLOSTRIDIUM DIFFICILE TOXIN NEGATIVE (Negative)
[2018-04-16 13:25] LABS: CLOSTRIDIUM DIFFICILE ANTIGEN POSITIVE
[2018-04-16 13:32] LABS: CHLORIDE 102 mmol/L (98-107)
[2018-04-16 13:43] LABS: ANION GAP 13 mmol/L (5-15); CREATININE 0.49 mg/dL (0.7-1.3)
[2018-04-16 14:00] VITALS: BP 142/86
[2018-04-16] MEDS ORDERED: ERGOCALCIFEROL 50,000 UNIT CAPSULE PO SCH (14:00)
[2018-04-16] MEDS ORDERED: MAGNESIUM SULFATE PMX 4GM/100M 100 ML IV ONE (15:30)
[2018-04-16] MEDS ORDERED: POTASSIUM CHLORIDE 20 MEQ TAB.ER.PRT PO ONE (15:30)
[2018-04-16 21:49] VITALS: BP 122/87
[2018-04-16] MEDS: OXYcodone IR 5MG TABLET PO PRN (23:43)
[2018-04-16] MEDS: LORazepam 1MG TABLET PO PRN (23:43)
[2018-04-17 02:00] VITALS: BP 132/81
[2018-04-17 05:34] LABS: BASOPHILS # (AUTO) 0.02 x10^3/uL (0-0.1); BASOPHILS % (AUTO) 1 % (0-1); EOSINOPHILS # (AUTO) 0.05 x10^3/uL (0-0.4); EOSINOPHILS % (AUTO) 1 % (1-7); LYMPHOCYTES # (AUTO) 1.92 x10^3/uL (1-3.4); LYMPHOCYTES % (AUTO) 47 % (22-44); MD NO; MEAN CORPUSCULAR HEMOGLOBIN 34.1 pg (27.5-34.5); MEAN CORPUSCULAR HGB CONC 33.9 g/dL (33.2-36.2); MEAN CORPUSCULAR VOLUME 100.4 fL (81-97); MEAN PLATELET VOLUME 8.3 fL (7.4-10.4); MONOCYTES # (AUTO) 0.38 x10^3/uL (0.2-0.8); MONOCYTES % (AUTO) 9 % (2-9); NEUTROPHILS % (AUTO) 42 % (42-75); PLATELET COUNT 146 x10^3/uL (130-400); RED CELL DISTRIBUTION WIDTH 17.5 % (9.4-14.8)
[2018-04-17] MEDS: VANCOMYCIN 50 MG/ML ORAL SUSP PO SCH ×4 (05:37→17:59)
[2018-04-17] MEDS: SODIUM CHLORIDE 0.9% 1,000 ML IV SCH ×2 (05:37→12:40)
[2018-04-17 05:49] LABS: CHLORIDE 98 mmol/L (98-107)
[2018-04-17 06:02] LABS: ALANINE AMINOTRANSFERASE 24 U/L (12-78); ALBUMIN 2.7 g/dL (3.4-5.0); ALKALINE PHOSPHATASE 98 U/L (45-117); ANION GAP 8 mmol/L (5-15); BILIRUBIN,TOTAL 0.9 mg/dL (0.2-1.0); CALCIUM 7.7 mg/dL (8.5-10.1); CHOL/HDL RATIO 1.6; CHOLESTEROL, TOTAL 138 mg/dL (140-239); HDL CHOL % 62 % (26-37); HDL CHOLESTEROL (DIRECT) 85 mg/dL (40-60); LDL CHOLESTEROL,CALCULATED 39 mg/dL (54-169); LDL/HDL RATIO 0.5 (0.5-3.0); TOTAL PROTEIN 5.6 g/dL (6.4-8.2); TRIGLYCERIDES 68 mg/dL (50-200); VLDL CHOLESTEROL 14 mg/dL (0-25)
[2018-04-17] MEDS: LORazepam 1MG TABLET PO PRN ×2 (06:18→20:43)
[2018-04-17] MEDS: NICOTINE 7 MG/24 HR PATCH.TD24 TD SCH (08:00)
[2018-04-17 08:22] VITALS: BP 124/90
[2018-04-17] MEDS: OXYcodone IR 5MG TABLET PO PRN ×3 (08:57→20:43)
[2018-04-17] MEDS: HEPARIN 5,000 UNITS/ML, 1ML SQ SCH ×2 (08:57→17:59)
[2018-04-17] MEDS: POTASSIUM CHLORIDE 20 MEQ, MAGNESIUM SULFATE 1 GM, FOLIC ACID 1 MG, THIAMINE 200 MG, MV... IV SCH (11:31)
[2018-04-17 14:22] VITALS: BP 112/69
[2018-04-17] MEDS: POTASSIUM CHLORIDE 20 MEQ TAB.ER.PRT PO SCH (17:58)
[2018-04-17 18:42] VITALS: BP 132/77
[2018-04-18] MEDS: VANCOMYCIN 50 MG/ML ORAL SUSP PO SCH ×4 (00:05→18:35)
[2018-04-18] MEDS: SODIUM CHLORIDE 0.9% 1,000 ML IV SCH ×3 (00:19→22:30)
[2018-04-18 01:07] VITALS: BP 125/97
[2018-04-18] MEDS: HEPARIN 5,000 UNITS/ML, 1ML SQ SCH ×3 (02:04→18:35)
[2018-04-18] MEDS: OXYcodone IR 5MG TABLET PO PRN ×3 (05:44→20:42)
[2018-04-18 06:43] LABS: ANION GAP 7 mmol/L (5-15); CHLORIDE 103 mmol/L (98-107); CREATININE 0.43 mg/dL (0.7-1.3)
[2018-04-18 07:40] VITALS: BP 108/69
[2018-04-18] MEDS: NICOTINE 7 MG/24 HR PATCH.TD24 TD SCH (08:00)
[2018-04-18] MEDS: POTASSIUM CHLORIDE 20 MEQ TAB.ER.PRT PO SCH (10:21)
[2018-04-18] MEDS: POTASSIUM CHLORIDE 20 MEQ, MAGNESIUM SULFATE 1 GM, FOLIC ACID 1 MG, THIAMINE 200 MG, MV... IV SCH (11:50)
[2018-04-18 12:46] VITALS: BP 104/72
[2018-04-18 19:01] VITALS: BP 119/74
[2018-04-19] MEDS: VANCOMYCIN 50 MG/ML ORAL SUSP PO SCH ×4 (00:10→18:09)
[2018-04-19 00:22] VITALS: BP 121/79
[2018-04-19] MEDS: HEPARIN 5,000 UNITS/ML, 1ML SQ SCH ×3 (05:26→21:18)
[2018-04-19 06:48] VITALS: BP 123/76
[2018-04-19] MEDS: NICOTINE 7 MG/24 HR PATCH.TD24 TD SCH (08:00)
[2018-04-19] MEDS: OXYcodone IR 5MG TABLET PO PRN (10:03)
[2018-04-19] MEDS: SODIUM CHLORIDE 0.9% 1,000 ML IV SCH (10:03)
[2018-04-19 14:47] VITALS: BP 115/79
[2018-04-19 20:15] VITALS: BP 115/73
[2018-04-20] MEDS: VANCOMYCIN 50 MG/ML ORAL SUSP PO SCH ×4 (00:50→17:27)
[2018-04-20 00:57] VITALS: BP 135/89
[2018-04-20] MEDS: HEPARIN 5,000 UNITS/ML, 1ML SQ SCH ×3 (06:18→22:13)
[2018-04-20] MEDS: NICOTINE 7 MG/24 HR PATCH.TD24 TD SCH (08:00)
[2018-04-20 08:09] VITALS: BP 127/86
[2018-04-20 15:55] VITALS: BP 121/80
[2018-04-20] MEDS: POTASSIUM CHLORIDE 20 MEQ TAB.ER.PRT PO SCH (17:27)
[2018-04-20] MEDS: OXYcodone IR 5MG TABLET PO PRN (20:10)
[2018-04-20 20:11] VITALS: BP 125/76
[2018-04-21] MEDS: VANCOMYCIN 50 MG/ML ORAL SUSP PO SCH ×4 (00:02→18:11)
[2018-04-21 02:39] VITALS: BP 113/71
[2018-04-21 05:04] LABS: BASOPHILS # (AUTO) 0.03 x10^3/uL (0-0.1); BASOPHILS % (AUTO) 1 % (0-1); EOSINOPHILS # (AUTO) 0.13 x10^3/uL (0-0.4); EOSINOPHILS % (AUTO) 3 % (1-7); LYMPHOCYTES # (AUTO) 1.96 x10^3/uL (1-3.4); LYMPHOCYTES % (AUTO) 43 % (22-44); MD NO; MEAN CORPUSCULAR HGB CONC 33.3 g/dL (33.2-36.2); MEAN CORPUSCULAR VOLUME 102.2 fL (81-97); MONOCYTES % (AUTO) 18 % (2-9); NEUTROPHILS # (AUTO) 1.62 x10^3/uL (1.8-6.8); NEUTROPHILS % (AUTO) 36 % (42-75); PLATELET COUNT 163 x10^3/uL (130-400); RED BLOOD COUNT 3.14 x10^6/uL (4.38-5.82); RED CELL DISTRIBUTION WIDTH 18.5 % (9.4-14.8)
[2018-04-21 05:11] LABS: ANION GAP 5 mmol/L (5-15); CALCIUM 8.3 mg/dL (8.5-10.1); CHLORIDE 104 mmol/L (98-107); CREATININE 0.51 mg/dL (0.7-1.3); TOTAL IRON BINDING CAPACITY 139 mcg/dL (250-450)
[2018-04-21 05:18] LABS: % IRON SATURATION 38 % (20-55); IRON LEVEL 53 mcg/dL (65-175)
[2018-04-21] MEDS: HEPARIN 5,000 UNITS/ML, 1ML SQ SCH ×3 (05:51→22:33)
[2018-04-21 06:57] VITALS: BP 107/68
[2018-04-21] MEDS: NICOTINE 7 MG/24 HR PATCH.TD24 TD SCH (08:49)
[2018-04-21] MEDS: POTASSIUM CHLORIDE 20 MEQ TAB.ER.PRT PO SCH ×2 (08:49→18:12)
[2018-04-21 15:27] VITALS: BP 120/82
[2018-04-21 18:56] VITALS: BP 114/72
[2018-04-21] MEDS: OXYcodone IR 5MG TABLET PO PRN (21:55)
[2018-04-22] MEDS: VANCOMYCIN 50 MG/ML ORAL SUSP PO SCH ×4 (00:08→18:18)
[2018-04-22 01:05] VITALS: BP 101/68
[2018-04-22] MEDS: HEPARIN 5,000 UNITS/ML, 1ML SQ SCH ×3 (06:10→22:00)
[2018-04-22 06:45] VITALS: BP 99/71
[2018-04-22] MEDS: NICOTINE 7 MG/24 HR PATCH.TD24 TD SCH (08:00)
[2018-04-22] MEDS: OXYcodone IR 5MG TABLET PO PRN (10:18)
[2018-04-22 14:00] VITALS: BP 100/70
[2018-04-22 18:49] VITALS: BP 111/63
[2018-04-23] MEDS: VANCOMYCIN 50 MG/ML ORAL SUSP PO SCH ×4 (00:08→12:00)
[2018-04-23 01:17] VITALS: BP 103/73
[2018-04-23] MEDS: HEPARIN 5,000 UNITS/ML, 1ML SQ SCH ×2 (05:43→14:00)
[2018-04-23] MEDS: NICOTINE 7 MG/24 HR PATCH.TD24 TD SCH (08:00)
[2018-04-23 08:04] VITALS: BP 104/73
[2018-04-23] MEDS ORDERED: METR500T PO (12:26)
== END 2018-04-23 15:26 | disposition home or self-care (01) | DRG 371 ==
LOC: ED 23:47 → EDIP 04-16 02:46 → 3NE 04-16 03:11
PROVIDERS: ADMIT Internal Medicine; ATTEND Hospitalist
DX: A04.72 Enterocolitis due to Clostridium difficile, not specified as recurrent (principal); E43 Unspecified severe protein-calorie malnutrition; J98.11 Atelectasis; Z68.1 Body mass index [BMI] 19.9 or less, adult; D53.9 Nutritional anemia, unspecified; E55.9 Vitamin D deficiency, unspecified; E78.5 Hyperlipidemia, unspecified; E83.42 Hypomagnesemia; E87.6 Hypokalemia; I25.2 Old myocardial infarction; I48.0 Paroxysmal atrial fibrillation; I50.9 Heart failure, unspecified; J44.9 Chronic obstructive pulmonary disease, unspecified; R29.6 Repeated falls; R62.7 Adult failure to thrive; S79.912A Unspecified injury of left hip, initial encounter; W18.39XA Other fall on same level, initial encounter; Y93.89 Activity, other specified; Y92.89 Other specified places as the place of occurrence of the external cause; Y99.8 Other external cause status; S79.922A Unspecified injury of left thigh, initial encounter; Z91.14 Patient's other noncompliance with medication regimen; Z87.891 Personal history of nicotine dependence; Z86.73 Personal history of transient ischemic attack (TIA), and cerebral infarction without residual deficits; Z86.711 Personal history of pulmonary embolism; Z82.49 Family history of ischemic heart disease and other diseases of the circulatory system; Z59.0 Homelessness; Y90.8 Blood alcohol level of 240 mg/100 ml or more; Z90.49 Acquired absence of other specified parts of digestive tract; F10.20 Alcohol dependence, uncomplicated
CPT/HCPCS: 36415; 70450; 71045; 71275; 74177; 80048; 80053; 80061; 80307; 81003; 82140; 82306; 82607; 83036; 83540; 83550; 83735; 84100; 84439; 84443; 85025; 87040; 87046; 87324; 87427; 87493; 89055; 93005; 93306; 99285; J1644; J3370; J3411; J3475; J3480; J7042; Q9967; J2060; J7030; J7040

== ENCOUNTER 2018-05-25 10:20 | Emergency (ER) | payer MEDICAID ==
[~2018-05-25] VITALS: Ht 185.4 cm; Wt 78.0 kg
[2018-05-25 10:47] VITALS: BP 116/70
[2018-05-25 11:06] LABS: MEAN CORPUSCULAR HEMOGLOBIN 35.5 pg (27.5-34.5); MEAN CORPUSCULAR HGB CONC 34.7 g/dL (33.2-36.2); MEAN CORPUSCULAR VOLUME 102.5 fL (81-97); MEAN PLATELET VOLUME 7.4 fL (7.4-10.4); PLATELET COUNT 274 x10^3/uL (130-400); RED BLOOD COUNT 3.96 x10^6/uL (4.38-5.82)
[2018-05-25 11:16] LABS: ALANINE AMINOTRANSFERASE 36 U/L (12-78); ALBUMIN 3.1 g/dL (3.4-5.0); ANION GAP 10 mmol/L (5-15); CALCIUM 8.4 mg/dL (8.5-10.1); CHLORIDE 101 mmol/L (98-107); CREATININE 0.62 mg/dL (0.7-1.3)
[2018-05-25 11:19] LABS: ALKALINE PHOSPHATASE 100 U/L (45-117); BILIRUBIN,TOTAL 0.2 mg/dL (0.2-1.0); TOTAL PROTEIN 6.9 g/dL (6.4-8.2)
[2018-05-25 11:26] LABS: BASOPHILS # (AUTO) 0.03 x10^3/uL (0-0.1); BASOPHILS % (AUTO) 1 % (0-1); EOSINOPHILS # (AUTO) 0.09 x10^3/uL (0-0.4); EOSINOPHILS % (AUTO) 2 % (1-7); LYMPHOCYTES # (AUTO) 3.66 x10^3/uL (1-3.4); LYMPHOCYTES % (AUTO) 58 % (22-44); MD SCAN; MONOCYTES # (AUTO) 0.47 x10^3/uL (0.2-0.8); MONOCYTES % (AUTO) 8 % (2-9); NEUTROPHILS # (AUTO) 2.02 x10^3/uL (1.8-6.8); NEUTROPHILS % (AUTO) 32 % (42-75)
[2018-05-25] MEDS ORDERED: MECLIZINE CHEWABLE 25 MG TAB ONE (11:52)
[2018-05-25] MEDS ORDERED: MECLIZINE CHEWABLE 25 MG TAB PO ONE (12:00)
== END 2018-05-25 12:09 | disposition home or self-care (01) ==
LOC: ED 11:12
DX: R42 Dizziness and giddiness (principal); R51 Headache; J44.9 Chronic obstructive pulmonary disease, unspecified; E78.00 Pure hypercholesterolemia, unspecified; I50.9 Heart failure, unspecified; I11.0 Hypertensive heart disease with heart failure; E78.5 Hyperlipidemia, unspecified; J96.90 Respiratory failure, unspecified, unspecified whether with hypoxia or hypercapnia
CPT/HCPCS: 36415; 80053; 83690; 85025; 93005; 99285

== ENCOUNTER 2018-06-04 21:17 | Inpatient (IN) | payer MEDICAID ==
[~2018-06-04] VITALS: Ht 185.4 cm; Wt 71.0 kg
[~2018-06-04 21:17] MED LIST changes: -IPRA3AMP NPPB; +IPRA3AMP30 NPPB; -THIA100T6 PO; +THIA100T67 PO; +TRAZ-136 PO; -TRAZ50TA18 PO
[2018-06-04] MEDS ORDERED: SODIUM CHLORIDE FLUSH 10ML SYR IVF ONE (21:30)
[2018-06-04] MEDS ORDERED: SODIUM CHLORIDE 0.9% 1,000ML IVBOLUS ONE (21:30)
[2018-06-04 22:05] LABS: BASOPHILS # (AUTO) 0.04 x10^3/uL (0-0.1); BASOPHILS % (AUTO) 1 % (0-1); EOSINOPHILS # (AUTO) 0.03 x10^3/uL (0-0.4); EOSINOPHILS % (AUTO) 0 % (1-7); LYMPHOCYTES # (AUTO) 2.31 x10^3/uL (1-3.4); LYMPHOCYTES % (AUTO) 35 % (22-44); MD NO; MEAN CORPUSCULAR HEMOGLOBIN 35.3 pg (27.5-34.5); MEAN CORPUSCULAR HGB CONC 34.8 g/dL (33.2-36.2); MEAN CORPUSCULAR VOLUME 101.5 fL (81-97); MEAN PLATELET VOLUME 7.6 fL (7.4-10.4); MONOCYTES # (AUTO) 0.64 x10^3/uL (0.2-0.8); MONOCYTES % (AUTO) 10 % (2-9); NEUTROPHILS # (AUTO) 3.54 x10^3/uL (1.8-6.8); NEUTROPHILS % (AUTO) 54 % (42-75); PLATELET COUNT 151 x10^3/uL (130-400); RED BLOOD COUNT 3.96 x10^6/uL (4.38-5.82); RED CELL DISTRIBUTION WIDTH 15.7 % (9.4-14.8)
[2018-06-04 22:13] LABS: ALANINE AMINOTRANSFERASE 35 U/L (12-78); ALBUMIN 3.3 g/dL (3.4-5.0); ANION GAP 10 mmol/L (5-15); CALCIUM 8.5 mg/dL (8.5-10.1); CHLORIDE 94 mmol/L (98-107); CREATININE 0.52 mg/dL (0.7-1.3)
[2018-06-04 22:17] LABS: ALKALINE PHOSPHATASE 131 U/L (45-117); BILIRUBIN,TOTAL 0.6 mg/dL (0.2-1.0); TOTAL PROTEIN 7.3 g/dL (6.4-8.2)
[2018-06-05 00:32] LABS: CLOSTRIDIUM DIFFICILE TOXIN POSITIVE (Negative)
[2018-06-05 00:33] LABS: CLOSTRIDIUM DIFFICILE ANTIGEN POSITIVE
[2018-06-05] MEDS ORDERED: VANCOMYCIN 50 MG/ML ORAL SUSP PO SCH (01:00)
[2018-06-05] MEDS ORDERED: ONDANSETRON 2MG/ML, 2ML IVPush PRN (02:00)
[2018-06-05] MEDS ORDERED: ENALAPRILAT 1.25 MG/ML, 2ML IVPush PRN (02:00)
[2018-06-05] MEDS ORDERED: OXYcodone IR 5MG TABLET PO PRN (02:00)
[2018-06-05] MEDS ORDERED: DOCUSATE 100 MG CAPSULE PO PRN (02:00)
[2018-06-05] MEDS ORDERED: LABETALOL 5MG/ML, 20ML IVPush PRN (02:00)
[2018-06-05] MEDS ORDERED: BISACODYL 10 MG SUPP PR PRN (02:00)
[2018-06-05] MEDS: NICOTINE 7 MG/24 HR PATCH.TD24 TD SCH (02:00)
[2018-06-05] MEDS ORDERED: PROMETHAZINE 25 MG/ML, 1ML IM PRN (02:00)
[2018-06-05] MEDS ORDERED: POLYETHYLENE GLYCOL 17 GM PACKET PO PRN (02:00)
[2018-06-05] MEDS ORDERED: hydrALAzine 20 MG/ML, 1ML IVPush PRN (02:00)
[2018-06-05] MEDS ORDERED: morphine SULFATE 10 MG/ML, 1ML IVPush PRN (02:00)
[2018-06-05 02:12] VITALS: BP 95/63
[2018-06-05 02:14] VITALS: BP 95/63
[2018-06-05] MEDS: D5%-0.9% NACL+KCL 20MEQ 1,000 ML IV SCH ×3 (02:18→21:51)
[2018-06-05] MEDS: HEPARIN 5,000 UNITS/ML, 1ML SQ SCH ×3 (02:23→21:19)
[2018-06-05] MEDS ORDERED: LORazepam 2 MG/ML, 1ML IV PRN ×4 (02:30)
[2018-06-05] MEDS ORDERED: LORazepam 1MG TABLET PO PRN ×4 (02:30)
[2018-06-05 05:10] LABS: MICROSCOPIC INDICATED
[2018-06-05 05:11] LABS: CULTURE INDICATED? YES
[2018-06-05 05:39] LABS: ALBUMIN 2.7 g/dL (3.4-5.0); CHLORIDE 100 mmol/L (98-107)
[2018-06-05 05:44] LABS: ALANINE AMINOTRANSFERASE 26 U/L (12-78); ALKALINE PHOSPHATASE 102 U/L (45-117); ANION GAP 10 mmol/L (5-15); BILIRUBIN,TOTAL 0.6 mg/dL (0.2-1.0); CALCIUM 7.7 mg/dL (8.5-10.1); CREATININE 0.37 mg/dL (0.7-1.3); TOTAL PROTEIN 5.9 g/dL (6.4-8.2)
[2018-06-05 05:50] LABS: FREE T4 (FREE THYROXINE) 0.93 ng/dL (0.76-1.46); HEMOGLOBIN A1C 4.5 % (4.2-6.3); THYROID STIMULATING HORMONE 2.95 mIU/L (0.358-3.740)
[2018-06-05 06:06] LABS: BASOPHILS # (AUTO) 0.03 x10^3/uL (0-0.1); BASOPHILS % (AUTO) 1 % (0-1); EOSINOPHILS # (AUTO) 0.06 x10^3/uL (0-0.4); EOSINOPHILS % (AUTO) 1 % (1-7); LYMPHOCYTES # (AUTO) 2.46 x10^3/uL (1-3.4); LYMPHOCYTES % (AUTO) 47 % (22-44); MD SCAN; MEAN CORPUSCULAR VOLUME 102.8 fL (81-97); MEAN PLATELET VOLUME 7.5 fL (7.4-10.4); MONOCYTES # (AUTO) 0.47 x10^3/uL (0.2-0.8); MONOCYTES % (AUTO) 9 % (2-9); NEUTROPHILS % (AUTO) 42 % (42-75); PLATELET COUNT 104 x10^3/uL (130-400); RED BLOOD COUNT 3.13 x10^6/uL (4.38-5.82); RED CELL DISTRIBUTION WIDTH 15.8 % (9.4-14.8)
[2018-06-05 06:58] VITALS: BP 96/58
[2018-06-05] MEDS: ALBUTEROL/IPRATROPIUM 2.5MG/0.5MG, 3 ML NPPB SCH ×4 (07:00→19:23)
[2018-06-05] MEDS: LORazepam 2 MG/ML, 1ML IV PRN ×2 (11:17→15:48)
[2018-06-05] MEDS: ACETAMINOPHEN 325 MG TABLET PO PRN ×2 (12:17→21:51)
[2018-06-05 15:30] VITALS: BP 121/79
[2018-06-05 20:08] VITALS: BP 131/75
[2018-06-05] MEDS: ONDANSETRON ODT 4 MG PO PRN (21:50)
[2018-06-05] MEDS: LORazepam 0.5MG TABLET PO PRN (21:51)
[2018-06-06] MEDS: NICOTINE 7 MG/24 HR PATCH.TD24 TD SCH ×2 (02:00→22:43)
[2018-06-06 02:18] VITALS: BP 124/73
[2018-06-06] MEDS: LORazepam 0.5MG TABLET PO PRN ×6 (02:48→23:17)
[2018-06-06] MEDS: ACETAMINOPHEN 325 MG TABLET PO PRN ×5 (02:49→23:17)
[2018-06-06] MEDS: D5%-0.9% NACL+KCL 20MEQ 1,000 ML IV SCH (04:49)
[2018-06-06] MEDS: HEPARIN 5,000 UNITS/ML, 1ML SQ SCH ×3 (05:43→22:43)
[2018-06-06] MEDS: ONDANSETRON ODT 4 MG PO PRN ×2 (05:58→19:09)
[2018-06-06 06:27] LABS: CHOL/HDL RATIO 1.4; LDL/HDL RATIO 0.3 (0.5-3.0)
[2018-06-06 07:46] VITALS: BP 122/75
[2018-06-06] MEDS ORDERED: VANCOMYCIN PER PHARMACY MC PRN (08:00)
[2018-06-06] MEDS: ALBUTEROL/IPRATROPIUM 2.5MG/0.5MG, 3 ML NPPB SCH ×4 (08:55→22:05)
[2018-06-06] MEDS ORDERED: PHARMACOKINETIC MONITORING MC PRN (09:00)
[2018-06-06] MEDS: VANCOMYCIN 50 MG/ML ORAL SUSP PO SCH ×3 (09:11→22:43)
[2018-06-06] MEDS: VANCOMYCIN 1,300 MG in SODIUM CHLORIDE 0.9% 250 ML IV SCH ×2 (10:13→22:43)
[2018-06-06 14:39] VITALS: BP 93/62
[2018-06-06 18:47] VITALS: BP 113/70
[2018-06-06] MEDS: POTASSIUM CHLORIDE 20 MEQ, MAGNESIUM SULFATE 1 GM, FOLIC ACID 1 MG, THIAMINE 200 MG, MV... IV SCH (19:08)
[2018-06-07 01:36] VITALS: BP 116/76
[2018-06-07] MEDS: LORazepam 0.5MG TABLET PO PRN ×5 (04:27→22:23)
[2018-06-07] MEDS: VANCOMYCIN 50 MG/ML ORAL SUSP PO SCH ×5 (04:27→21:00)
[2018-06-07] MEDS: ACETAMINOPHEN 325 MG TABLET PO PRN ×2 (04:27→14:35)
[2018-06-07] MEDS: ONDANSETRON ODT 4 MG PO PRN ×2 (04:27→09:00)
[2018-06-07] MEDS: HEPARIN 5,000 UNITS/ML, 1ML SQ SCH (06:30)
[2018-06-07 06:50] VITALS: BP 126/79
[2018-06-07] MEDS: ALBUTEROL/IPRATROPIUM 2.5MG/0.5MG, 3 ML NPPB SCH ×2 (07:00→18:55)
[2018-06-07] MEDS ORDERED: LOPERAMIDE 2 MG CAPSULE PO PRN (09:00)
[2018-06-07] MEDS: ENOXAPARIN 40 MG/0.4 ML SQ SCH (09:33)
[2018-06-07] MEDS: MAGNESIUM OXIDE 400 MG TABLET PO SCH (09:33)
[2018-06-07] MEDS: VANCOMYCIN 1,300 MG in SODIUM CHLORIDE 0.9% 250 ML IV SCH ×2 (10:49→22:22)
[2018-06-07 13:50] VITALS: BP 136/84
[2018-06-07 19:09] VITALS: BP 110/73
[2018-06-07] MEDS: NICOTINE 7 MG/24 HR PATCH.TD24 TD SCH (21:00)
[2018-06-08] MEDS: POTASSIUM CHLORIDE 20 MEQ, MAGNESIUM SULFATE 1 GM, FOLIC ACID 1 MG, THIAMINE 200 MG, MV... IV SCH (00:37)
[2018-06-08 01:04] VITALS: BP 116/82
[2018-06-08] MEDS: LORazepam 0.5MG TABLET PO PRN ×4 (02:10→16:39)
[2018-06-08] MEDS: VANCOMYCIN 50 MG/ML ORAL SUSP PO SCH ×4 (05:00→22:15)
[2018-06-08 05:43] LABS: ALANINE AMINOTRANSFERASE 29 U/L (12-78); ALBUMIN 2.9 g/dL (3.4-5.0); ANION GAP 5 mmol/L (5-15); CALCIUM 8.9 mg/dL (8.5-10.1); CHLORIDE 95 mmol/L (98-107); CREATININE 0.39 mg/dL (0.7-1.3)
[2018-06-08 05:45] LABS: ALKALINE PHOSPHATASE 122 U/L (45-117); BILIRUBIN,TOTAL 0.5 mg/dL (0.2-1.0)
[2018-06-08 05:46] LABS: MEAN CORPUSCULAR HEMOGLOBIN 34.7 pg (27.5-34.5); MEAN CORPUSCULAR VOLUME 102.1 fL (81-97); RED BLOOD COUNT 2.88 x10^6/uL (4.38-5.82); RED CELL DISTRIBUTION WIDTH 15.8 % (9.4-14.8)
[2018-06-08 06:16] LABS: MEAN PLATELET VOLUME 8.2 fL (7.4-10.4); PLATELET COUNT 71 x10^3/uL (130-400)
[2018-06-08 06:17] LABS: BASOPHILS # (AUTO) 0.02 x10^3/uL (0-0.1); BASOPHILS % (AUTO) 0 % (0-1); EOSINOPHILS # (AUTO) 0.09 x10^3/uL (0-0.4); EOSINOPHILS % (AUTO) 2 % (1-7); LYMPHOCYTES # (AUTO) 1.51 x10^3/uL (1-3.4); LYMPHOCYTES % (AUTO) 32 % (22-44); MD SCAN; MONOCYTES # (AUTO) 0.45 x10^3/uL (0.2-0.8); MONOCYTES % (AUTO) 10 % (2-9); NEUTROPHILS # (AUTO) 2.69 x10^3/uL (1.8-6.8); NEUTROPHILS % (AUTO) 57 % (42-75)
[2018-06-08 06:40] VITALS: BP 119/81
[2018-06-08] MEDS: ENOXAPARIN 40 MG/0.4 ML SQ SCH (09:16)
[2018-06-08] MEDS: MAGNESIUM OXIDE 400 MG TABLET PO SCH (09:16)
[2018-06-08] MEDS: VANCOMYCIN 1,300 MG in SODIUM CHLORIDE 0.9% 250 ML IV SCH (10:33)
[2018-06-08] MEDS: ALBUTEROL/IPRATROPIUM 2.5MG/0.5MG, 3 ML NPPB SCH ×2 (11:05→19:57)
[2018-06-08] MEDS: ACETAMINOPHEN 325 MG TABLET PO PRN (11:45)
[2018-06-08 13:48] VITALS: BP 118/78
[2018-06-08] MEDS: AMOXICILLIN 500 MG CAPSULE PO SCH ×2 (16:39→22:14)
[2018-06-08] MEDS: NICOTINE 7 MG/24 HR PATCH.TD24 TD SCH (21:00)
[2018-06-08 21:24] VITALS: BP 107/65
[2018-06-09 03:56] VITALS: BP 120/79
[2018-06-09] MEDS: VANCOMYCIN 50 MG/ML ORAL SUSP PO SCH ×4 (06:16→21:50)
[2018-06-09 07:26] VITALS: BP 115/76
[2018-06-09] MEDS: ALBUTEROL/IPRATROPIUM 2.5MG/0.5MG, 3 ML NPPB SCH ×2 (09:00→20:28)
[2018-06-09] MEDS: AMOXICILLIN 500 MG CAPSULE PO SCH ×3 (11:11→21:50)
[2018-06-09] MEDS: ENOXAPARIN 40 MG/0.4 ML SQ SCH (11:11)
[2018-06-09] MEDS: MAGNESIUM OXIDE 400 MG TABLET PO SCH (11:12)
[2018-06-09 12:18] VITALS: BP 115/72
[2018-06-09] MEDS: ACETAMINOPHEN 325 MG TABLET PO PRN ×2 (13:24→17:25)
[2018-06-09] MEDS: ONDANSETRON ODT 4 MG PO PRN (13:24)
[2018-06-09 18:44] VITALS: BP 108/76
[2018-06-09] MEDS: NICOTINE 7 MG/24 HR PATCH.TD24 TD SCH (21:00)
[2018-06-10 01:34] VITALS: BP 123/72
[2018-06-10] MEDS: VANCOMYCIN 50 MG/ML ORAL SUSP PO SCH ×4 (05:18→21:57)
[2018-06-10 06:03] LABS: ALBUMIN 2.7 g/dL (3.4-5.0); ANION GAP 9 mmol/L (5-15); CALCIUM 8.8 mg/dL (8.5-10.1); CHLORIDE 100 mmol/L (98-107); CREATININE 0.47 mg/dL (0.7-1.3)
[2018-06-10 08:29] VITALS: BP 102/70
[2018-06-10] MEDS: ENOXAPARIN 40 MG/0.4 ML SQ SCH (09:24)
[2018-06-10] MEDS: MAGNESIUM OXIDE 400 MG TABLET PO SCH (09:24)
[2018-06-10] MEDS: AMOXICILLIN 500 MG CAPSULE PO SCH ×3 (09:24→21:57)
[2018-06-10] MEDS: ACETAMINOPHEN 325 MG TABLET PO PRN (09:24)
[2018-06-10] MEDS: ALBUTEROL/IPRATROPIUM 2.5MG/0.5MG, 3 ML NPPB SCH ×2 (11:15→19:59)
[2018-06-10] MEDS: FOLIC ACID 1 MG TABLET PO SCH (12:34)
[2018-06-10] MEDS: THIAMINE 100MG TABLET PO SCH (12:34)
[2018-06-10] MEDS: MULTIVITAMINS/MINERALS TABLET PO SCH (12:34)
[2018-06-10 13:27] VITALS: BP 100/60
[2018-06-10 18:43] VITALS: BP 96/62
[2018-06-10] MEDS: NICOTINE 7 MG/24 HR PATCH.TD24 TD SCH (21:00)
[2018-06-11 02:42] VITALS: BP 109/70
[2018-06-11] MEDS: VANCOMYCIN 50 MG/ML ORAL SUSP PO SCH ×4 (06:30→23:00)
[2018-06-11 07:50] VITALS: BP 106/68
[2018-06-11] MEDS: ALBUTEROL/IPRATROPIUM 2.5MG/0.5MG, 3 ML NPPB SCH ×2 (09:00→21:00)
[2018-06-11] MEDS: THIAMINE 100MG TABLET PO SCH (09:24)
[2018-06-11] MEDS: ENOXAPARIN 40 MG/0.4 ML SQ SCH (09:24)
[2018-06-11] MEDS: FOLIC ACID 1 MG TABLET PO SCH (09:24)
[2018-06-11] MEDS: MULTIVITAMINS/MINERALS TABLET PO SCH (09:24)
[2018-06-11] MEDS: AMOXICILLIN 500 MG CAPSULE PO SCH ×3 (09:24→22:00)
[2018-06-11] MEDS: MAGNESIUM OXIDE 400 MG TABLET PO SCH (09:25)
[2018-06-11 14:11] VITALS: BP 92/59
[2018-06-11 19:30] VITALS: BP 108/62
[2018-06-11] MEDS: NICOTINE 7 MG/24 HR PATCH.TD24 TD SCH (22:00)
[2018-06-12 01:10] VITALS: BP 98/66
[2018-06-12] MEDS: VANCOMYCIN 50 MG/ML ORAL SUSP PO SCH ×4 (05:10→22:40)
[2018-06-12 07:22] VITALS: BP 112/74
[2018-06-12] MEDS: ALBUTEROL/IPRATROPIUM 2.5MG/0.5MG, 3 ML NPPB SCH ×2 (09:00→10:30)
[2018-06-12] MEDS: ENOXAPARIN 40 MG/0.4 ML SQ SCH ×2 (09:17→09:19)
[2018-06-12] MEDS: AMOXICILLIN 500 MG CAPSULE PO SCH ×3 (09:17→20:23)
[2018-06-12] MEDS: THIAMINE 100MG TABLET PO SCH (09:18)
[2018-06-12] MEDS: MAGNESIUM OXIDE 400 MG TABLET PO SCH (09:18)
[2018-06-12] MEDS: FOLIC ACID 1 MG TABLET PO SCH (09:18)
[2018-06-12] MEDS: MULTIVITAMINS/MINERALS TABLET PO SCH (09:18)
[2018-06-12 13:47] VITALS: BP 90/59
[2018-06-12 18:36] VITALS: BP 109/72
[2018-06-12] MEDS: NICOTINE 7 MG/24 HR PATCH.TD24 TD SCH (20:23)
[2018-06-13 00:52] VITALS: BP 114/63
[2018-06-13] MEDS: VANCOMYCIN 50 MG/ML ORAL SUSP PO SCH ×2 (05:21→10:20)
[2018-06-13 06:33] VITALS: BP 101/68
[2018-06-13] MEDS: MAGNESIUM OXIDE 400 MG TABLET PO SCH (08:54)
[2018-06-13] MEDS: ENOXAPARIN 40 MG/0.4 ML SQ SCH (08:54)
[2018-06-13] MEDS: THIAMINE 100MG TABLET PO SCH (08:54)
[2018-06-13] MEDS: AMOXICILLIN 500 MG CAPSULE PO SCH (08:54)
[2018-06-13] MEDS: MULTIVITAMINS/MINERALS TABLET PO SCH (08:54)
[2018-06-13] MEDS: FOLIC ACID 1 MG TABLET PO SCH (08:54)
[2018-06-13] MEDS: ALBUTEROL/IPRATROPIUM 2.5MG/0.5MG, 3 ML NPPB SCH ×2 (09:29→10:07)
[2018-06-13] MEDS ORDERED: MULT-484 PO (11:35)
[2018-06-13] MEDS ORDERED: ACET325T14 PO (11:35)
[2018-06-13] MEDS ORDERED: AMOX-291 PO (11:35)
[2018-06-13] MEDS ORDERED: FOLI-17 PO (11:35)
[2018-06-13] MEDS ORDERED: VANC250C2 PO (11:35)
[2018-06-13] MEDS ORDERED: THIA100T67 PO (11:35)
== END 2018-06-13 13:45 | disposition home or self-care (01) | DRG 371 ==
LOC: ED 23:10 → EDIP 06-05 00:39 → 4NOR 06-05 01:35
PROVIDERS: ADMIT Internal Medicine; ATTEND Internal Medicine
DX: A04.71 Enterocolitis due to Clostridium difficile, recurrent (principal); E43 Unspecified severe protein-calorie malnutrition; N39.0 Urinary tract infection, site not specified; E86.0 Dehydration; F10.229 Alcohol dependence with intoxication, unspecified; I11.0 Hypertensive heart disease with heart failure; I25.2 Old myocardial infarction; I48.0 Paroxysmal atrial fibrillation; I50.9 Heart failure, unspecified; J44.9 Chronic obstructive pulmonary disease, unspecified; Z82.49 Family history of ischemic heart disease and other diseases of the circulatory system; Z86.711 Personal history of pulmonary embolism; Z87.891 Personal history of nicotine dependence; Z91.14 Patient's other noncompliance with medication regimen; Z99.81 Dependence on supplemental oxygen; Z86.73 Personal history of transient ischemic attack (TIA), and cerebral infarction without residual deficits; B95.7 Other staphylococcus as the cause of diseases classified elsewhere; Z90.49 Acquired absence of other specified parts of digestive tract; Z68.20 Body mass index [BMI] 20.0-20.9, adult
CPT/HCPCS: 36415; 99285; J3370; J7121; J7620; 71045; 80053; 80061; 80069; 80202; 80307; 81001; 83036; 83735; 83880; 84100; 84439; 84443; 85025; 87040; 87077; 87086; 87186; 87324; 89055; 94640; 96360; J1644; J1650; J3411; J3475; J3480; Q0162; J2060; J7030; J7050

== ENCOUNTER 2018-06-26 16:13 | Inpatient (IN) | payer MEDICAID ==
[~2018-06-26] VITALS: Ht 180.3 cm; Wt 67.1 kg
[~2018-06-26 16:13] MED LIST changes: +ACET325T14 PO; +AMOX-291 PO; +MULT-484 PO; +VANC250C2 PO
[2018-06-26] MEDS ORDERED: SODIUM CHLORIDE FLUSH 10ML SYR IVF ONE (16:30)
[2018-06-26 16:49] LABS: MEAN CORPUSCULAR HEMOGLOBIN 34.9 pg (27.5-34.5); MEAN CORPUSCULAR HGB CONC 33.6 g/dL (33.2-36.2); MEAN CORPUSCULAR VOLUME 104.1 fL (81-97); MEAN PLATELET VOLUME 6.7 fL (7.4-10.4); PLATELET COUNT 348 x10^3/uL (130-400); RED BLOOD COUNT 3.63 x10^6/uL (4.38-5.82); RED CELL DISTRIBUTION WIDTH 15.8 % (9.4-14.8)
[2018-06-26 16:57] LABS: INTERNATIONAL NORMALIZED RATIO 0.99 (0.93-1.1); PROTHROMBIN TIME 10.2 Seconds (9.6-11.5)
[2018-06-26 16:59] LABS: ALANINE AMINOTRANSFERASE 26 U/L (12-78); ALBUMIN 3.3 g/dL (3.4-5.0); ANION GAP 8 mmol/L (5-15); CALCIUM 8.2 mg/dL (8.5-10.1); CHLORIDE 108 mmol/L (98-107)
[2018-06-26 17:02] LABS: MD YES
[2018-06-26 17:03] LABS: ALKALINE PHOSPHATASE 121 U/L (45-117); BILIRUBIN,TOTAL 0.2 mg/dL (0.2-1.0); TROPONIN I < 0.015 ng/mL (0.000-0.045)
[2018-06-26] MEDS ORDERED: NITROGLYCERIN SINGLE TAB 0.4 MG SL ONE ×2 (17:10)
[2018-06-26 17:22] LABS: BASOS#(MANUAL) 0.06 x10^3/uL (0-0.1); BASOS% (MANUAL) 1 % (0-1); EOS#(MANUAL) 0.19 x10^3/uL (0.0-0.4); EOS% (MANUAL) 3 % (1-7); LYMPH#(MANUAL) 3.97 x10^3/uL (1-3.4); LYMPHS% (MANUAL) 63 % (22-44); MONOS#(MANUAL) 0.38 x10^3/uL (0.3-2.7); MONOS% (MANUAL) 6 % (2-9); REACTIVE LYMPHS # (MANUAL) 0.19 x10^3/uL (0-0); REACTIVE LYMPHS % (MANUAL) 3 % (0-0); SEG#(MANUAL) 1.51 x10^3/uL (1.8-6.8); SEGS% (MANUAL) 24 % (42-75)
[2018-06-26 17:26] LABS: <PLATELET ESTIMATE> ADEQUATE; <PLT MORPHOLOGY> NORMAL PLT MORPH
[2018-06-26] MEDS ORDERED: MAALOX/HYOSCYAMINE/LIDOCAINE 45 ML BTL PO ONE (17:30)
[2018-06-26] MEDS ORDERED: FENTANYL PF 100 MCG/2ML IV ONE (17:30)
[2018-06-26] MEDS ORDERED: FENTANYL PF 100 MCG/2ML ONE (18:06)
[2018-06-26] MEDS ORDERED: MAALOX/HYOSCYAMINE/LIDOCAINE 45 ML BTL ONE (18:06)
[2018-06-26] MEDS ORDERED: ONDANSETRON 2MG/ML, 2ML IVPush PRN (20:00)
[2018-06-26] MEDS ORDERED: LABETALOL 5MG/ML, 20ML IVPush PRN (20:00)
[2018-06-26] MEDS ORDERED: LORazepam 0.5MG TABLET PO PRN (20:00)
[2018-06-26] MEDS ORDERED: LORazepam 2 MG/ML, 1ML IV PRN ×4 (20:00)
[2018-06-26] MEDS ORDERED: LORazepam 1MG TABLET PO PRN ×3 (20:00)
[2018-06-26] MEDS ORDERED: LIDODERM 5% PATCH TD PRN (20:00)
[2018-06-26] MEDS ORDERED: ONDANSETRON ODT 4 MG PO PRN (20:00)
[2018-06-26 20:34] LABS: ALANINE AMINOTRANSFERASE 26 U/L (12-78); ALBUMIN 3.3 g/dL (3.4-5.0)
[2018-06-26 20:36] LABS: ALKALINE PHOSPHATASE 119 U/L (45-117); BILIRUBIN,TOTAL 0.2 mg/dL (0.2-1.0); TOTAL PROTEIN 7.1 g/dL (6.4-8.2)
[2018-06-26 20:38] LABS: BILIRUBIN, DIRECT < 0.1 mg/dL (0.1-0.2); BILIRUBIN,INDIRECT 0.1 mg/dL (0.0-2.0)
[2018-06-26 20:49] VITALS: BP 111/75
[2018-06-26] MEDS ORDERED: SODIUM CHLORIDE 0.9% 1,000 ML IV SCH (21:00)
[2018-06-26] MEDS: POTASSIUM CHLORIDE 20 MEQ, MAGNESIUM SULFATE 2 GM, THIAMINE 100 MG, MVI ADULT 10 ML, FO... IV SCH (22:34)
[2018-06-26] MEDS: FAMOTIDINE 20 MG TABLET PO SCH (22:37)
[2018-06-26] MEDS: HEPARIN 5,000 UNITS/ML, 1ML SQ SCH (22:37)
[2018-06-26] MEDS: NICOTINE 7 MG/24 HR PATCH.TD24 TD SCH (22:38)
[2018-06-26 23:20] LABS: CLOSTRIDIUM DIFFICILE ANTIGEN NEGATIVE; CLOSTRIDIUM DIFFICILE TOXIN NEGATIVE (Negative)
[2018-06-26 23:33] LABS: TROPONIN I < 0.015 ng/mL (0.000-0.045)
[2018-06-27] MEDS ORDERED: ALBUTEROL/IPRATROPIUM 2.5MG/0.5MG, 3 ML NPPB PRN (00:30)
[2018-06-27 02:20] VITALS: BP 148/82
[2018-06-27 06:10] LABS: CHLORIDE 102 mmol/L (98-107)
[2018-06-27 06:19] LABS: BASOPHILS # (AUTO) 0.02 x10^3/uL (0-0.1); BASOPHILS % (AUTO) 0 % (0-1); EOSINOPHILS # (AUTO) 0.02 x10^3/uL (0-0.4); EOSINOPHILS % (AUTO) 0 % (1-7); LYMPHOCYTES # (AUTO) 1.52 x10^3/uL (1-3.4); LYMPHOCYTES % (AUTO) 28 % (22-44); MD NO; MEAN CORPUSCULAR HEMOGLOBIN 34.8 pg (27.5-34.5); MEAN CORPUSCULAR HGB CONC 34.1 g/dL (33.2-36.2); MEAN CORPUSCULAR VOLUME 102.2 fL (81-97); MEAN PLATELET VOLUME 6.9 fL (7.4-10.4); MONOCYTES # (AUTO) 0.74 x10^3/uL (0.2-0.8); MONOCYTES % (AUTO) 14 % (2-9); NEUTROPHILS # (AUTO) 3.07 x10^3/uL (1.8-6.8); NEUTROPHILS % (AUTO) 57 % (42-75); PLATELET COUNT 251 x10^3/uL (130-400); RED BLOOD COUNT 3.39 x10^6/uL (4.38-5.82); RED CELL DISTRIBUTION WIDTH 15.3 % (9.4-14.8)
[2018-06-27 06:23] LABS: ALANINE AMINOTRANSFERASE 24 U/L (12-78); ALBUMIN 3.2 g/dL (3.4-5.0); ALKALINE PHOSPHATASE 116 U/L (45-117); ANION GAP 9 mmol/L (5-15); BILIRUBIN,TOTAL 0.6 mg/dL (0.2-1.0); CALCIUM 7.9 mg/dL (8.5-10.1); CREATININE 0.49 mg/dL (0.7-1.3); TOTAL PROTEIN 6.7 g/dL (6.4-8.2); TROPONIN I < 0.015 ng/mL (0.000-0.045)
[2018-06-27 07:34] VITALS: BP 149/88
[2018-06-27] MEDS: MULTIVITAMINS/MINERALS TABLET PO SCH (08:04)
[2018-06-27] MEDS: HEPARIN 5,000 UNITS/ML, 1ML SQ SCH ×2 (08:04→17:11)
[2018-06-27] MEDS: LORazepam 1MG TABLET PO PRN ×2 (08:04→12:46)
[2018-06-27] MEDS: FAMOTIDINE 20 MG TABLET PO SCH ×2 (08:04→20:57)
[2018-06-27] MEDS ORDERED: REGADENOSON 0.4 MG/5 ML SYRINGE ONE (08:19)
[2018-06-27] MEDS ORDERED: MAGNESIUM SULFATE PMX 2GM/50ML 50 ML IV ONE (10:00)
[2018-06-27 13:12] VITALS: BP 112/70
[2018-06-27 20:14] VITALS: BP 119/70
[2018-06-27] MEDS: NICOTINE 7 MG/24 HR PATCH.TD24 TD SCH (20:57)
[2018-06-28 00:03] VITALS: BP 118/75
[2018-06-28] MEDS: POTASSIUM CHLORIDE 20 MEQ, MAGNESIUM SULFATE 2 GM, THIAMINE 100 MG, MVI ADULT 10 ML, FO... IV SCH ×2 (00:04→21:02)
[2018-06-28] MEDS: HEPARIN 5,000 UNITS/ML, 1ML SQ SCH ×3 (00:52→17:50)
[2018-06-28 05:59] LABS: ANION GAP 8 mmol/L (5-15); CALCIUM 8.6 mg/dL (8.5-10.1); CHLORIDE 101 mmol/L (98-107); CREATININE 0.57 mg/dL (0.7-1.3)
[2018-06-28 06:06] LABS: BASOPHILS # (AUTO) 0.01 x10^3/uL (0-0.1); BASOPHILS % (AUTO) 0 % (0-1); EOSINOPHILS # (AUTO) 0.06 x10^3/uL (0-0.4); EOSINOPHILS % (AUTO) 2 % (1-7); LYMPHOCYTES # (AUTO) 1.95 x10^3/uL (1-3.4); LYMPHOCYTES % (AUTO) 52 % (22-44); MD NO; MEAN CORPUSCULAR HEMOGLOBIN 35.5 pg (27.5-34.5); MEAN CORPUSCULAR HGB CONC 34.7 g/dL (33.2-36.2); MEAN CORPUSCULAR VOLUME 102.5 fL (81-97); MEAN PLATELET VOLUME 7.1 fL (7.4-10.4); MONOCYTES # (AUTO) 0.47 x10^3/uL (0.2-0.8); MONOCYTES % (AUTO) 12 % (2-9); NEUTROPHILS # (AUTO) 1.29 x10^3/uL (1.8-6.8); NEUTROPHILS % (AUTO) 34 % (42-75); PLATELET COUNT 186 x10^3/uL (130-400); RED BLOOD COUNT 3.19 x10^6/uL (4.38-5.82); RED CELL DISTRIBUTION WIDTH 14.9 % (9.4-14.8)
[2018-06-28 06:56] VITALS: BP 129/71
[2018-06-28] MEDS: LORazepam 2 MG/ML, 1ML IV PRN ×2 (07:18→07:40)
[2018-06-28] MEDS: MULTIVITAMINS/MINERALS TABLET PO SCH (07:52)
[2018-06-28] MEDS: NICOTINE 7 MG/24 HR PATCH.TD24 TD SCH (07:52)
[2018-06-28] MEDS: FAMOTIDINE 20 MG TABLET PO SCH ×2 (07:52→20:36)
[2018-06-28] MEDS ORDERED: DEXMEDETOMIDINE 200 MCG in SODIUM CHLORIDE 0.9% 48 ML IV PRN (09:39)
[2018-06-28] MEDS ORDERED: PHENOBARBITAL ETOH DETOX PER PHARMACY MC PRN (10:00)
[2018-06-28] MEDS ORDERED: PHENOBARBITAL SODIUM 650 MG in SODIUM CHLORIDE 0.9% 50 ML IV ONE (10:00)
[2018-06-28] MEDS ORDERED: ONDANSETRON 2MG/ML, 2ML IV PRN (10:00)
[2018-06-28] MEDS ORDERED: THIAMINE 100MG TABLET PO SCH (10:00)
[2018-06-28] MEDS ORDERED: THIAMINE 200 MG in DEXTROSE 5% 50 ML IVPB ONE (10:00)
[2018-06-28] MEDS ORDERED: PHARMACY INSTRUCTION MC PRN ×4 (10:00)
[2018-06-28] MEDS: NS + 20MEQ KCL 1,000 ML IV SCH ×2 (11:21→18:30)
[2018-06-28] MEDS: PHENOBARBITAL 20 MG/5 ML ORAL SOL PO SCH (17:47)
[2018-06-29] MEDS: HEPARIN 5,000 UNITS/ML, 1ML SQ SCH ×3 (00:59→17:33)
[2018-06-29 03:49] LABS: BASOPHILS # (AUTO) 0.02 x10^3/uL (0-0.1); BASOPHILS % (AUTO) 0 % (0-1); EOSINOPHILS # (AUTO) 0.12 x10^3/uL (0-0.4); EOSINOPHILS % (AUTO) 3 % (1-7); LYMPHOCYTES % (AUTO) 35 % (22-44); MD NO; MEAN CORPUSCULAR HEMOGLOBIN 35.7 pg (27.5-34.5); MEAN CORPUSCULAR HGB CONC 34.7 g/dL (33.2-36.2); MEAN CORPUSCULAR VOLUME 102.9 fL (81-97); MEAN PLATELET VOLUME 7.2 fL (7.4-10.4); MONOCYTES # (AUTO) 0.47 x10^3/uL (0.2-0.8); MONOCYTES % (AUTO) 10 % (2-9); NEUTROPHILS # (AUTO) 2.54 x10^3/uL (1.8-6.8); NEUTROPHILS % (AUTO) 52 % (42-75); PLATELET COUNT 157 x10^3/uL (130-400); RED BLOOD COUNT 3.04 x10^6/uL (4.38-5.82)
[2018-06-29 03:59] LABS: ALBUMIN 2.7 g/dL (3.4-5.0); ANION GAP 4 mmol/L (5-15); CHLORIDE 107 mmol/L (98-107)
[2018-06-29 04:00] VITALS: BP 99/48
[2018-06-29 04:03] LABS: ALANINE AMINOTRANSFERASE 18 U/L (12-78); ALKALINE PHOSPHATASE 88 U/L (45-117); BILIRUBIN,TOTAL 0.6 mg/dL (0.2-1.0); CREATININE 0.41 mg/dL (0.7-1.3); TOTAL PROTEIN 5.6 g/dL (6.4-8.2)
[2018-06-29] MEDS: PHENOBARBITAL 20 MG/5 ML ORAL SOL PO SCH ×2 (06:07→18:17)
[2018-06-29] MEDS: NS + 20MEQ KCL 1,000 ML IV SCH ×2 (07:53→17:32)
[2018-06-29] MEDS: MULTIVITAMINS/MINERALS TABLET PO SCH (09:45)
[2018-06-29] MEDS: FAMOTIDINE 20 MG TABLET PO SCH ×2 (09:45→20:27)
[2018-06-29 14:31] VITALS: BP 124/70
[2018-06-29 19:35] VITALS: BP 103/58
[2018-06-29] MEDS: NICOTINE 7 MG/24 HR PATCH.TD24 TD SCH (20:00)
[2018-06-30 01:32] VITALS: BP 122/83
[2018-06-30] MEDS: NS + 20MEQ KCL 1,000 ML IV SCH (03:13)
[2018-06-30] MEDS: POTASSIUM CHLORIDE 20 MEQ, MAGNESIUM SULFATE 2 GM, THIAMINE 100 MG, MVI ADULT 10 ML, FO... IV SCH (04:38)
[2018-06-30] MEDS: HEPARIN 5,000 UNITS/ML, 1ML SQ SCH ×3 (04:38→22:34)
[2018-06-30] MEDS ORDERED: PHENOBARBITAL 30 MG TABLET ONE (05:51)
[2018-06-30 06:02] LABS: BASOPHILS % (AUTO) 0 % (0-1); EOSINOPHILS # (AUTO) 0.08 x10^3/uL (0-0.4); EOSINOPHILS % (AUTO) 2 % (1-7); LYMPHOCYTES # (AUTO) 1.55 x10^3/uL (1-3.4); LYMPHOCYTES % (AUTO) 41 % (22-44); MD NO; MEAN CORPUSCULAR HEMOGLOBIN 34.9 pg (27.5-34.5); MEAN CORPUSCULAR HGB CONC 34.1 g/dL (33.2-36.2); MEAN CORPUSCULAR VOLUME 102.3 fL (81-97); MEAN PLATELET VOLUME 7.9 fL (7.4-10.4); MONOCYTES # (AUTO) 0.42 x10^3/uL (0.2-0.8); MONOCYTES % (AUTO) 11 % (2-9); NEUTROPHILS # (AUTO) 1.77 x10^3/uL (1.8-6.8); NEUTROPHILS % (AUTO) 46 % (42-75); PLATELET COUNT 143 x10^3/uL (130-400); RED BLOOD COUNT 3.29 x10^6/uL (4.38-5.82); RED CELL DISTRIBUTION WIDTH 14.9 % (9.4-14.8)
[2018-06-30] MEDS: PHENOBARBITAL 20 MG/5 ML ORAL SOL PO SCH ×2 (06:05→17:40)
[2018-06-30 06:07] LABS: CHLORIDE 104 mmol/L (98-107)
[2018-06-30 06:13] LABS: ALANINE AMINOTRANSFERASE 20 U/L (12-78); ALKALINE PHOSPHATASE 114 U/L (45-117); ANION GAP 5 mmol/L (5-15); BILIRUBIN,TOTAL 0.5 mg/dL (0.2-1.0); CALCIUM 8.8 mg/dL (8.5-10.1); CREATININE 0.63 mg/dL (0.7-1.3); TOTAL PROTEIN 6.4 g/dL (6.4-8.2)
[2018-06-30 07:00] VITALS: BP 123/74
[2018-06-30] MEDS: LACTOBACILLUS CHEW TABLET PO SCH ×3 (09:32→22:34)
[2018-06-30] MEDS: FAMOTIDINE 20 MG TABLET PO SCH ×2 (09:32→22:34)
[2018-06-30] MEDS: SODIUM CHLORIDE 0.9% 1,000 ML IV SCH (09:32)
[2018-06-30] MEDS: MULTIVITAMINS/MINERALS TABLET PO SCH (09:32)
[2018-06-30] MEDS ORDERED: DIPHENOXYLATE/ATROPINE TABLET PO PRN (12:00)
[2018-06-30 13:42] VITALS: BP 137/87
[2018-06-30 19:09] VITALS: BP 118/72
[2018-06-30] MEDS: NICOTINE 7 MG/24 HR PATCH.TD24 TD SCH (20:00)
[2018-07-01 01:06] VITALS: BP 100/62
[2018-07-01] MEDS: SODIUM CHLORIDE 0.9% 1,000 ML IV SCH (03:41)
[2018-07-01] MEDS: PHENOBARBITAL 20 MG/5 ML ORAL SOL PO SCH (06:24)
[2018-07-01] MEDS: HEPARIN 5,000 UNITS/ML, 1ML SQ SCH (06:24)
[2018-07-01 06:37] VITALS: BP 115/73
[2018-07-01] MEDS: LACTOBACILLUS CHEW TABLET PO SCH (08:25)
[2018-07-01] MEDS: FAMOTIDINE 20 MG TABLET PO SCH (08:25)
[2018-07-01] MEDS: MULTIVITAMINS/MINERALS TABLET PO SCH (08:25)
[2018-07-01] MEDS ORDERED: ACID1TAB7 PO (10:40)
[2018-07-01] MEDS ORDERED: PHEN20EL8 PO (10:40)
[2018-07-01] MEDS ORDERED: DIPH1TAB6 PO (10:40)
== END 2018-07-01 11:56 | disposition home or self-care (01) | DRG 897 ==
LOC: ED 16:51 → EDIP 18:59 → 5SO 20:27 → ICU 06-28 09:29 → 4WST 06-29 11:16
PROVIDERS: ADMIT Internal Medicine; ATTEND Internal Medicine
DX: F10.239 Alcohol dependence with withdrawal, unspecified (principal); E44.0 Moderate protein-calorie malnutrition; E87.2 Acidosis; J96.10 Chronic respiratory failure, unspecified whether with hypoxia or hypercapnia; D53.9 Nutritional anemia, unspecified; D63.8 Anemia in other chronic diseases classified elsewhere; E78.5 Hyperlipidemia, unspecified; E86.0 Dehydration; F17.210 Nicotine dependence, cigarettes, uncomplicated; I11.0 Hypertensive heart disease with heart failure; I50.9 Heart failure, unspecified; J44.9 Chronic obstructive pulmonary disease, unspecified; Z66 Do not resuscitate; K70.10 Alcoholic hepatitis without ascites; Z82.49 Family history of ischemic heart disease and other diseases of the circulatory system; Z86.73 Personal history of transient ischemic attack (TIA), and cerebral infarction without residual deficits; I25.2 Old myocardial infarction; Z91.19 Patient's noncompliance with other medical treatment and regimen; Z86.711 Personal history of pulmonary embolism; Z99.81 Dependence on supplemental oxygen; Z90.49 Acquired absence of other specified parts of digestive tract; Z71.6 Tobacco abuse counseling; Z68.20 Body mass index [BMI] 20.0-20.9, adult
CPT/HCPCS: 36415; 99285; J7042; 0399T; 71045; 78452; 80048; 80053; 80076; 83605; 83631; 83735; 83880; 84100; 84443; 84484; 85025; 85610; 87081; 87324; 89055; 93005; 93017; 93308; 93325; J1644; J2560; J2785; J3010; J3411; J3475; J3480; A9502; C9898; J2060; J7030

== ENCOUNTER 2018-07-08 07:16 | Inpatient (IN) | payer MEDICAID ==
[~2018-07-08] VITALS: Ht 185.4 cm; Wt 73.9 kg
[~2018-07-08 07:16] MED LIST changes: +ACID1TAB7 PO; +DIPH1TAB6 PO; +PHEN20EL8 PO
[2018-07-08] MEDS ORDERED: SODIUM CHLORIDE FLUSH 10ML SYR IVF ONE ×2 (09:00)
[2018-07-08] MEDS ORDERED: LORazepam 2 MG/ML, 1ML IVPush PRN (09:00)
[2018-07-08] MEDS ORDERED: SODIUM CHLORIDE 0.9% 1,000ML IVBOLUS ONE (09:00)
[2018-07-08 09:31] LABS: BASOPHILS # (AUTO) 0.05 x10^3/uL (0-0.1); BASOPHILS % (AUTO) 0 % (0-1); EOSINOPHILS # (AUTO) 0.02 x10^3/uL (0-0.4); EOSINOPHILS % (AUTO) 0 % (1-7); LYMPHOCYTES # (AUTO) 1.88 x10^3/uL (1-3.4); LYMPHOCYTES % (AUTO) 14 % (22-44); MD NO; MEAN CORPUSCULAR HEMOGLOBIN 34.6 pg (27.5-34.5); MEAN CORPUSCULAR VOLUME 101.5 fL (81-97); MEAN PLATELET VOLUME 6.8 fL (7.4-10.4); MONOCYTES # (AUTO) 1.22 x10^3/uL (0.2-0.8); MONOCYTES % (AUTO) 9 % (2-9); NEUTROPHILS % (AUTO) 76 % (42-75); PLATELET COUNT 591 x10^3/uL (130-400); RED BLOOD COUNT 3.87 x10^6/uL (4.38-5.82); RED CELL DISTRIBUTION WIDTH 15.2 % (9.4-14.8)
[2018-07-08 09:40] LABS: INTERNATIONAL NORMALIZED RATIO 1.03 (0.93-1.1); PROTHROMBIN TIME 10.7 Seconds (9.6-11.5)
[2018-07-08 09:44] LABS: ALANINE AMINOTRANSFERASE 33 U/L (12-78); ALBUMIN 3.7 g/dL (3.4-5.0); ANION GAP 17 mmol/L (5-15); CALCIUM 8.9 mg/dL (8.5-10.1); CHLORIDE 107 mmol/L (98-107); CREATININE 0.88 mg/dL (0.7-1.3)
[2018-07-08 09:46] LABS: ALKALINE PHOSPHATASE 123 U/L (45-117); BILIRUBIN,TOTAL 0.3 mg/dL (0.2-1.0); TOTAL PROTEIN 7.5 g/dL (6.4-8.2)
[2018-07-08] MEDS ORDERED: MORPHINE SULFATE 4 MG/ML, 1ML ONE (10:02)
[2018-07-08] MEDS: MORPHINE SULFATE 4 MG/ML, 1ML IVPush PRN ×2 (10:06→11:52)
[2018-07-08] MEDS ORDERED: THIAMINE 100 MG/ML, 2ML IM ONE (10:30)
[2018-07-08] MEDS ORDERED: THIAMINE 100 MG/ML, 2ML ONE (10:55)
[2018-07-08] MEDS ORDERED: POLYETHYLENE GLYCOL 17 GM PACKET PO PRN (11:00)
[2018-07-08] MEDS ORDERED: LORazepam 1MG TABLET PO PRN ×3 (11:00)
[2018-07-08] MEDS ORDERED: BISACODYL 10 MG SUPP PR PRN (11:00)
[2018-07-08] MEDS ORDERED: hydrALAzine 20 MG/ML, 1ML IVPush PRN (11:00)
[2018-07-08] MEDS: NICOTINE 14MG/24 HR PATCH.TD24 TD SCH (11:00)
[2018-07-08] MEDS ORDERED: DOCUSATE 100 MG CAPSULE PO PRN (11:00)
[2018-07-08 11:35] LABS: THYROID STIMULATING HORMONE 1.66 mIU/L (0.358-3.740)
[2018-07-08 11:54] VITALS: BP 119/75
[2018-07-08] MEDS: SODIUM CHLORIDE 0.9% 1,000 ML IV SCH ×2 (12:10→21:00)
[2018-07-08] MEDS: morphine SULFATE 10 MG/ML, 1ML IVPush PRN ×2 (12:10→20:00)
[2018-07-08 12:40] LABS: FOLATE LEVEL 18.9 ng/mL (3.1-17.5); THYROID STIMULATING HORMONE 1.98 mIU/L (0.358-3.740)
[2018-07-08] MEDS: POTASSIUM CHLORIDE 20 MEQ, MAGNESIUM SULFATE 2 GM, THIAMINE 100 MG, MVI ADULT 10 ML, FO... IV SCH ×2 (13:45→21:12)
[2018-07-08] MEDS ORDERED: ALBUTEROL/IPRATROPIUM 2.5MG/0.5MG, 3 ML ONE (14:32)
[2018-07-08] MEDS: ALBUTEROL/IPRATROPIUM 2.5MG/0.5MG, 3 ML NPPB SCH ×2 (14:39→19:41)
[2018-07-08] MEDS ORDERED: NEOSPORIN OINT, 15GM ONE (15:23)
[2018-07-08] MEDS ORDERED: MIDAZOLAM 1 MG/ML, 2ML ONE (16:20)
[2018-07-08] MEDS ORDERED: FENTANYL PF 250 MCG/5ML ONE (16:20)
[2018-07-08] MEDS ORDERED: CEFAZOLIN 1,000 MG ONE (16:24)
[2018-07-08] MEDS ORDERED: SUCCINYLCHOLINE 20 MG/ML, 10ML ONE (16:24)
[2018-07-08] MEDS ORDERED: PROPOFOL 10 MG/ML, 20ML ONE (16:24)
[2018-07-08] MEDS ORDERED: ROCURONIUM 10 MG/ML,10ML ONE (16:24)
[2018-07-08 17:07] LABS: MICROSCOPIC NOT IND
[2018-07-08 17:09] LABS: CULTURE INDICATED? NO
[2018-07-08 17:10] LABS: AMPHETAMINE SCREEN, URINE Negative (Negative); BARBITURATE SCREEN, URINE Positive (Negative); BENZODIAZEPINE SCREEN, URINE Negative (Negative); CANNABINOID SCREEN, URINE Negative (Negative); COCAINE SCREEN, URINE Negative (Negative); METHADONE SCREEN, URINE Negative (Negative); OPIATE SCREEN, URINE Positive (Negative)
[2018-07-08] MEDS ORDERED: FENTANYL PF 100 MCG/2ML ONE (17:27)
[2018-07-08] MEDS ORDERED: OXYcodone 5 MG/5 ML ORAL.SOL UDC ONE (17:28)
[2018-07-08] MEDS ORDERED: hydrALAzine 20 MG/ML, 1ML IV PRN (17:30)
[2018-07-08] MEDS ORDERED: KETOROLAC 30 MG/1 ML IV PRN (17:30)
[2018-07-08] MEDS ORDERED: ONDANSETRON 2MG/ML, 2ML IVPush PRN (17:30)
[2018-07-08] MEDS ORDERED: PROMETHAZINE 25 MG/ML, 1ML IV PRN (17:30)
[2018-07-08] MEDS ORDERED: MEPERIDINE/PF 25MG/0.5ML IVPush PRN (17:30)
[2018-07-08] MEDS ORDERED: OXYcodone 5 MG/5 ML ORAL.SOL UDC PO PRN (17:30)
[2018-07-08] MEDS: FENTANYL PF 100 MCG/2ML IV PRN ×2 (17:30→17:42)
[2018-07-08] MEDS ORDERED: LABETALOL 5MG/ML, 20ML IV PRN (17:30)
[2018-07-08] MEDS ORDERED: METOCLOPRAMIDE 5 MG/ML, 2ML IV PRN (17:30)
[2018-07-08] MEDS ORDERED: ALBUTEROL SULFATE 2.5 MG/3 ML NPPB PRN (17:30)
[2018-07-08] MEDS ORDERED: HYDROmorphone 2 MG/ML, 1ML ONE (17:45)
[2018-07-08] MEDS: HYDROmorphone 1 MG/ML, 1ML IV PRN ×2 (17:47→18:01)
[2018-07-08] MEDS: LORazepam 1MG TABLET PO PRN (18:37)
[2018-07-08 18:45] VITALS: BP 158/74
[2018-07-08] MEDS: LORazepam 0.5MG TABLET PO PRN (23:45)
[2018-07-08] MEDS: CEFAZOLIN PMX 1GM/50ML 50 ML IV SCH (23:45)
[2018-07-09 00:02] VITALS: BP 147/81
[2018-07-09 04:00] VITALS: BP 111/74
[2018-07-09 05:48] LABS: ALBUMIN 3.2 g/dL (3.4-5.0); ANION GAP 8 mmol/L (5-15); BASOPHILS # (AUTO) 0.05 x10^3/uL (0-0.1); BASOPHILS % (AUTO) 0 % (0-1); CALCIUM 8.5 mg/dL (8.5-10.1); CHLORIDE 101 mmol/L (98-107); EOSINOPHILS % (AUTO) 0 % (1-7); LYMPHOCYTES # (AUTO) 1.89 x10^3/uL (1-3.4); LYMPHOCYTES % (AUTO) 15 % (22-44); MD NO; MEAN CORPUSCULAR HEMOGLOBIN 34.7 pg (27.5-34.5); MEAN CORPUSCULAR VOLUME 102.1 fL (81-97); MEAN PLATELET VOLUME 7.4 fL (7.4-10.4); MONOCYTES % (AUTO) 11 % (2-9); NEUTROPHILS # (AUTO) 9.11 x10^3/uL (1.8-6.8); NEUTROPHILS % (AUTO) 74 % (42-75); PLATELET COUNT 422 x10^3/uL (130-400); RED BLOOD COUNT 3.27 x10^6/uL (4.38-5.82); RED CELL DISTRIBUTION WIDTH 14.8 % (9.4-14.8)
[2018-07-09 05:53] LABS: ALANINE AMINOTRANSFERASE 26 U/L (12-78); ALKALINE PHOSPHATASE 103 U/L (45-117); CREATININE 0.72 mg/dL (0.7-1.3); TOTAL PROTEIN 6.9 g/dL (6.4-8.2)
[2018-07-09] MEDS: morphine SULFATE 10 MG/ML, 1ML IVPush PRN ×3 (06:09→17:42)
[2018-07-09] MEDS: ALBUTEROL/IPRATROPIUM 2.5MG/0.5MG, 3 ML NPPB SCH ×4 (07:00→19:08)
[2018-07-09] MEDS: CEFAZOLIN PMX 1GM/50ML 50 ML IV SCH ×2 (09:02→17:42)
[2018-07-09] MEDS: LORazepam 1MG TABLET PO PRN ×5 (09:18→22:04)
[2018-07-09] MEDS: NICOTINE 14MG/24 HR PATCH.TD24 TD SCH (11:00)
[2018-07-09] MEDS ORDERED: POTASSIUM CHLORIDE 20 MEQ, MAGNESIUM SULFATE 2 GM, THIAMINE 100 MG, MVI ADULT 10 ML, FO... IV SCH (11:00)
[2018-07-09 12:22] VITALS: BP 131/80
[2018-07-09 13:53] VITALS: BP 132/78
[2018-07-09 18:33] VITALS: BP 144/79
[2018-07-09] MEDS: ENOXAPARIN 40 MG/0.4 ML SQ SCH (20:02)
[2018-07-10] MEDS: LORazepam 1MG TABLET PO PRN ×3 (00:12→08:37)
[2018-07-10 00:13] VITALS: BP 153/84
[2018-07-10] MEDS: SODIUM CHLORIDE 0.9% 1,000 ML IV SCH ×4 (00:29→20:10)
[2018-07-10 06:20] LABS: BASOPHILS # (AUTO) 0.03 x10^3/uL (0-0.1); BASOPHILS % (AUTO) 0 % (0-1); EOSINOPHILS % (AUTO) 0 % (1-7); LYMPHOCYTES % (AUTO) 15 % (22-44); MD NO; MEAN CORPUSCULAR HEMOGLOBIN 35.1 pg (27.5-34.5); MEAN CORPUSCULAR HGB CONC 34.5 g/dL (33.2-36.2); MEAN CORPUSCULAR VOLUME 101.9 fL (81-97); MEAN PLATELET VOLUME 6.9 fL (7.4-10.4); MONOCYTES # (AUTO) 0.74 x10^3/uL (0.2-0.8); MONOCYTES % (AUTO) 7 % (2-9); NEUTROPHILS # (AUTO) 8.12 x10^3/uL (1.8-6.8); NEUTROPHILS % (AUTO) 78 % (42-75); PLATELET COUNT 290 x10^3/uL (130-400); RED BLOOD COUNT 2.78 x10^6/uL (4.38-5.82); RED CELL DISTRIBUTION WIDTH 14.6 % (9.4-14.8)
[2018-07-10 06:29] VITALS: BP 134/80
[2018-07-10 06:30] LABS: ALBUMIN 2.6 g/dL (3.4-5.0); ANION GAP 7 mmol/L (5-15); CALCIUM 8.1 mg/dL (8.5-10.1); CHLORIDE 98 mmol/L (98-107)
[2018-07-10 06:34] LABS: ALANINE AMINOTRANSFERASE 18 U/L (12-78); ALKALINE PHOSPHATASE 86 U/L (45-117); BILIRUBIN,TOTAL 0.9 mg/dL (0.2-1.0); CREATININE 0.44 mg/dL (0.7-1.3); TOTAL PROTEIN 5.7 g/dL (6.4-8.2)
[2018-07-10] MEDS: ALBUTEROL/IPRATROPIUM 2.5MG/0.5MG, 3 ML NPPB SCH ×4 (07:01→19:00)
[2018-07-10 08:30] VITALS: BP 148/79
[2018-07-10] MEDS: METOPROLOL TARTRATE 50 MG TABLET PO SCH ×2 (08:37→18:08)
[2018-07-10] MEDS: ACETAMINOPHEN 325 MG TABLET PO PRN ×2 (09:57→18:09)
[2018-07-10] MEDS: OXYcodone IR 5MG TABLET PO PRN ×2 (09:57→20:10)
[2018-07-10] MEDS: LORazepam 0.5MG TABLET PO PRN ×2 (11:20→15:52)
[2018-07-10] MEDS: NICOTINE 14MG/24 HR PATCH.TD24 TD SCH ×2 (11:22→11:23)
[2018-07-10 12:52] VITALS: BP 100/60
[2018-07-10 18:10] VITALS: BP 109/75
[2018-07-10 18:43] VITALS: BP 107/62
[2018-07-10] MEDS: ENOXAPARIN 40 MG/0.4 ML SQ SCH (20:10)
[2018-07-11 00:52] VITALS: BP 100/59
[2018-07-11] MEDS: OXYcodone IR 5MG TABLET PO PRN ×2 (01:26→14:11)
[2018-07-11 05:18] VITALS: BP 135/77
[2018-07-11 05:34] LABS: BASOPHILS # (AUTO) 0.03 x10^3/uL (0-0.1); BASOPHILS % (AUTO) 0 % (0-1); EOSINOPHILS # (AUTO) 0.08 x10^3/uL (0-0.4); EOSINOPHILS % (AUTO) 1 % (1-7); LYMPHOCYTES # (AUTO) 1.88 x10^3/uL (1-3.4); LYMPHOCYTES % (AUTO) 23 % (22-44); MD NO; MEAN CORPUSCULAR HEMOGLOBIN 36.5 pg (27.5-34.5); MEAN CORPUSCULAR HGB CONC 35.3 g/dL (33.2-36.2); MEAN CORPUSCULAR VOLUME 103.4 fL (81-97); MEAN PLATELET VOLUME 7.5 fL (7.4-10.4); MONOCYTES # (AUTO) 0.52 x10^3/uL (0.2-0.8); MONOCYTES % (AUTO) 6 % (2-9); NEUTROPHILS # (AUTO) 5.85 x10^3/uL (1.8-6.8); NEUTROPHILS % (AUTO) 70 % (42-75); PLATELET COUNT 244 x10^3/uL (130-400); RED BLOOD COUNT 2.54 x10^6/uL (4.38-5.82); RED CELL DISTRIBUTION WIDTH 14.5 % (9.4-14.8)
[2018-07-11] MEDS: SODIUM CHLORIDE 0.9% 1,000 ML IV SCH (05:42)
[2018-07-11] MEDS: METOPROLOL TARTRATE 50 MG TABLET PO SCH (05:42)
[2018-07-11 05:43] LABS: CHLORIDE 103 mmol/L (98-107)
[2018-07-11 05:52] LABS: ALANINE AMINOTRANSFERASE 15 U/L (12-78); ALBUMIN 2.2 g/dL (3.4-5.0); ALKALINE PHOSPHATASE 88 U/L (45-117); ANION GAP 7 mmol/L (5-15); BILIRUBIN,TOTAL 0.5 mg/dL (0.2-1.0); CALCIUM 7.7 mg/dL (8.5-10.1); CREATININE 0.43 mg/dL (0.7-1.3); TOTAL PROTEIN 5.1 g/dL (6.4-8.2)
[2018-07-11 06:32] VITALS: BP 127/78
[2018-07-11] MEDS: ALBUTEROL/IPRATROPIUM 2.5MG/0.5MG, 3 ML NPPB SCH (07:20)
[2018-07-11] MEDS ORDERED: ALBUTEROL/IPRATROPIUM 2.5MG/0.5MG, 3 ML NPPB PRN (07:30)
[2018-07-11] MEDS: POTASSIUM CHLORIDE 20 MEQ TAB.ER.PRT PO SCH ×2 (10:08→14:08)
[2018-07-11] MEDS ORDERED: MULT-412 PO (12:17)
[2018-07-11] MEDS ORDERED: METO50TA82 PO (12:17)
[2018-07-11] MEDS ORDERED: MAGN400T26 PO (12:17)
[2018-07-11] MEDS ORDERED: OXYC5TAB3 PO (12:17)
[2018-07-11] MEDS ORDERED: ENOX40SY4 SQ (12:17)
[2018-07-11] MEDS ORDERED: FOLI-17 PO (12:17)
[2018-07-11] MEDS ORDERED: THIA100T10 PO (12:17)
[2018-07-11] MEDS ORDERED: NICO-486 TD (12:17)
[2018-07-11 12:26] VITALS: BP 137/78
[2018-07-11] MEDS ORDERED: TRAM50TA2 PO (14:30)
== END 2018-07-11 17:15 | DRG 481 ==
LOC: ED 08:01 → EDIP 10:11 → 4WST 11:41
PROVIDERS: ADMIT Hospitalist; ATTEND Hospitalist
PROC: 0QS606Z Reposition Right Upper Femur with Intramedullary Internal Fixation Device, Open Approach (ICD-10-PCS; principal; 2018-07-08 16:00)
DX: S72.141A Displaced intertrochanteric fracture of right femur, initial encounter for closed fracture (principal); F10.239 Alcohol dependence with withdrawal, unspecified; R00.0 Tachycardia, unspecified; W01.0XXA Fall on same level from slipping, tripping and stumbling without subsequent striking against object, initial encounter; S16.1XXA Strain of muscle, fascia and tendon at neck level, initial encounter; R45.4 Irritability and anger; S20.211A Contusion of right front wall of thorax, initial encounter; F17.200 Nicotine dependence, unspecified, uncomplicated; F32.9 Major depressive disorder, single episode, unspecified; D72.829 Elevated white blood cell count, unspecified; D75.89 Other specified diseases of blood and blood-forming organs; E78.00 Pure hypercholesterolemia, unspecified; E78.5 Hyperlipidemia, unspecified; M19.90 Unspecified osteoarthritis, unspecified site; Y90.8 Blood alcohol level of 240 mg/100 ml or more; F10.229 Alcohol dependence with intoxication, unspecified; I10 Essential (primary) hypertension; J44.9 Chronic obstructive pulmonary disease, unspecified; Z99.81 Dependence on supplemental oxygen; Y93.89 Activity, other specified; Y92.038 Other place in apartment as the place of occurrence of the external cause; Y99.8 Other external cause status; Z82.49 Family history of ischemic heart disease and other diseases of the circulatory system; Z86.73 Personal history of transient ischemic attack (TIA), and cerebral infarction without residual deficits; Z91.14 Patient's other noncompliance with medication regimen
CPT/HCPCS: 36415; 71101; 72040; 73502; 73552; 76000; 99291; J7042; J7620; 70450; 71045; 80053; 80307; 81003; 82140; 82607; 82746; 83735; 84100; 84132; 84439; 84443; 85025; 85610; 85730; 87040; 93005; 94640; 96372; C1713; G0378; J0690; J1170; J1650; J2250; J2704; J3010; J3411; J3475; J3480; J0330; J2270; J7030

== ENCOUNTER 2018-09-03 18:44 | Emergency (ER) | payer MEDICAID ==
[~2018-09-03] VITALS: Ht 185.4 cm; Wt 60.0 kg
[~2018-09-03 18:44] MED LIST changes: +ENOX40SY4 SQ; +MAGN400T26 PO; +MULT-412 PO; +OXYC5TAB3 PO
[2018-09-03 19:56] LABS: BASOPHILS # (AUTO) 0.05 x10^3/uL (0-0.1); BASOPHILS % (AUTO) 1 % (0-1); EOSINOPHILS % (AUTO) 0 % (1-7); LYMPHOCYTES # (AUTO) 2.23 x10^3/uL (1-3.4); LYMPHOCYTES % (AUTO) 40 % (22-44); MD NO; MEAN CORPUSCULAR HEMOGLOBIN 32.8 pg (27.5-34.5); MEAN CORPUSCULAR HGB CONC 34.2 g/dL (33.2-36.2); MEAN PLATELET VOLUME 8.2 fL (7.4-10.4); MONOCYTES # (AUTO) 0.65 x10^3/uL (0.2-0.8); MONOCYTES % (AUTO) 12 % (2-9); NEUTROPHILS % (AUTO) 48 % (42-75); PLATELET COUNT 140 x10^3/uL (130-400); RED BLOOD COUNT 4.29 x10^6/uL (4.38-5.82); RED CELL DISTRIBUTION WIDTH 14.8 % (9.4-14.8)
[2018-09-03] MEDS ORDERED: SODIUM CHLORIDE 0.9% 1,000ML IVBOLUS ONE (20:00)
[2018-09-03] MEDS ORDERED: SODIUM CHLORIDE FLUSH 10ML SYR IVF ONE (20:00)
[2018-09-03 20:02] LABS: ALANINE AMINOTRANSFERASE 146 U/L (12-78); ALBUMIN 3.7 g/dL (3.4-5.0); CALCIUM 8.6 mg/dL (8.5-10.1); CREATININE 0.57 mg/dL (0.7-1.3)
[2018-09-03 20:06] LABS: ALKALINE PHOSPHATASE 118 U/L (45-117); BILIRUBIN,TOTAL 0.8 mg/dL (0.2-1.0); TOTAL PROTEIN 7.1 g/dL (6.4-8.2)
[2018-09-03 20:07] LABS: TROPONIN I < 0.015 ng/mL (0.000-0.045)
[2018-09-03 20:15] LABS: ANION GAP 18 mmol/L (5-15); CHLORIDE 95 mmol/L (98-107)
[2018-09-03] MEDS ORDERED: POTASSIUM CHLORIDE 20 MEQ TAB.ER.PRT ONE (20:23)
[2018-09-03] MEDS ORDERED: MAGNESIUM SULFATE PMX 2GM/50ML 50 ML IV ONE (20:30)
[2018-09-03] MEDS ORDERED: POTASSIUM CHLORIDE 20 MEQ TAB.ER.PRT PO ONE (20:30)
[2018-09-03 22:22] VITALS: BP 101/63
== END 2018-09-03 22:40 | disposition home or self-care (01) ==
LOC: ED 20:39
DX: R42 Dizziness and giddiness (principal); F19.10 Other psychoactive substance abuse, uncomplicated; F10.129 Alcohol abuse with intoxication, unspecified; R94.5 Abnormal results of liver function studies; I25.2 Old myocardial infarction; M19.90 Unspecified osteoarthritis, unspecified site; E78.00 Pure hypercholesterolemia, unspecified; I10 Essential (primary) hypertension; J44.9 Chronic obstructive pulmonary disease, unspecified; F17.200 Nicotine dependence, unspecified, uncomplicated; Z86.73 Personal history of transient ischemic attack (TIA), and cerebral infarction without residual deficits; Z86.711 Personal history of pulmonary embolism
CPT/HCPCS: 36415; 71045; 80053; 83735; 83880; 84484; 85025; 93005; 96361; 96365; 96366; 99285; J3475; J7030

== ENCOUNTER 2018-09-09 00:05 | Emergency (ER) | payer MEDICAID ==
[~2018-09-09] VITALS: Ht 185.4 cm; Wt 63.8 kg
[2018-09-09] MEDS ORDERED: SODIUM CHLORIDE FLUSH 10ML SYR IVF ONE (00:30)
[2018-09-09] MEDS ORDERED: MORPHINE SULFATE 4 MG/ML, 1ML IVPush PRN (00:30)
[2018-09-09] MEDS ORDERED: ONDANSETRON 2MG/ML, 2ML IVPush ONE (00:30)
[2018-09-09] MEDS ORDERED: LORazepam 2 MG/ML, 1ML ONE (00:30)
[2018-09-09] MEDS ORDERED: MORPHINE SULFATE 4 MG/ML, 1ML ONE (00:30)
[2018-09-09] MEDS ORDERED: SODIUM CHLORIDE 0.9% 1,000ML IVBOLUS ONE (00:30)
[2018-09-09] MEDS ORDERED: LORazepam 2 MG/ML, 1ML IVPush ONE (00:30)
[2018-09-09] MEDS ORDERED: ONDANSETRON 2MG/ML, 2ML ONE (00:30)
[2018-09-09 01:25] LABS: ALANINE AMINOTRANSFERASE 51 U/L (12-78); ALBUMIN 3.3 g/dL (3.4-5.0); ANION GAP 14 mmol/L (5-15); CALCIUM 9.4 mg/dL (8.5-10.1); CHLORIDE 103 mmol/L (98-107); CREATININE 0.64 mg/dL (0.7-1.3)
[2018-09-09 01:27] LABS: ALKALINE PHOSPHATASE 120 U/L (45-117); BILIRUBIN,TOTAL 0.3 mg/dL (0.2-1.0); TOTAL PROTEIN 6.6 g/dL (6.4-8.2)
[2018-09-09 01:33] VITALS: BP 98/63
[2018-09-09 01:40] LABS: BASOPHILS # (AUTO) 0.06 x10^3/uL (0-0.1); BASOPHILS % (AUTO) 1 % (0-1); EOSINOPHILS # (AUTO) 0.08 x10^3/uL (0-0.4); EOSINOPHILS % (AUTO) 1 % (1-7); LYMPHOCYTES % (AUTO) 28 % (22-44); MD NO; MEAN CORPUSCULAR HEMOGLOBIN 33.4 pg (27.5-34.5); MEAN CORPUSCULAR HGB CONC 34.2 g/dL (33.2-36.2); MEAN CORPUSCULAR VOLUME 97.6 fL (81-97); MEAN PLATELET VOLUME 7.8 fL (7.4-10.4); MONOCYTES # (AUTO) 0.94 x10^3/uL (0.2-0.8); MONOCYTES % (AUTO) 17 % (2-9); NEUTROPHILS # (AUTO) 2.96 x10^3/uL (1.8-6.8); NEUTROPHILS % (AUTO) 52 % (42-75); PLATELET COUNT 205 x10^3/uL (130-400); RED BLOOD COUNT 3.64 x10^6/uL (4.38-5.82); RED CELL DISTRIBUTION WIDTH 15.8 % (9.4-14.8)
== END 2018-09-09 02:19 | disposition home or self-care (01) ==
LOC: ED 00:43
DX: K85.20 Alcohol induced acute pancreatitis without necrosis or infection (principal); K29.20 Alcoholic gastritis without bleeding; F10.20 Alcohol dependence, uncomplicated; J44.9 Chronic obstructive pulmonary disease, unspecified; E78.00 Pure hypercholesterolemia, unspecified; I25.2 Old myocardial infarction; E78.5 Hyperlipidemia, unspecified; I11.0 Hypertensive heart disease with heart failure; I50.9 Heart failure, unspecified; F17.200 Nicotine dependence, unspecified, uncomplicated; Z72.9 Problem related to lifestyle, unspecified; Z90.49 Acquired absence of other specified parts of digestive tract; Z86.73 Personal history of transient ischemic attack (TIA), and cerebral infarction without residual deficits
CPT/HCPCS: 36415; 80053; 80307; 83690; 85025; 93005; 96361; 96374; 96375; 99285; J2060; J2405; J7030

== ENCOUNTER 2018-09-22 15:07 | Emergency (ER) | payer MEDICAID ==
[~2018-09-22] VITALS: Ht 185.4 cm; Wt 64.3 kg
[2018-09-22 15:09] VITALS: BP 122/77
== END 2018-09-22 17:31 | disposition home or self-care (01) ==
LOC: ED 17:25
DX: J44.1 Chronic obstructive pulmonary disease with (acute) exacerbation (principal); E78.5 Hyperlipidemia, unspecified; I25.2 Old myocardial infarction; J44.9 Chronic obstructive pulmonary disease, unspecified; I10 Essential (primary) hypertension
CPT/HCPCS: 71045; 71250; 93005; 99284

== ENCOUNTER 2018-09-30 11:37 | Emergency (ER) | payer MEDICAID ==
[~2018-09-30] VITALS: Ht 185.4 cm; Wt 68.0 kg
[2018-09-30 13:43] VITALS: BP 111/70
== END 2018-09-30 13:56 | disposition home or self-care (01) ==
LOC: ED 13:50
DX: S53.401A Unspecified sprain of right elbow, initial encounter (principal); S73.102A Unspecified sprain of left hip, initial encounter; F10.129 Alcohol abuse with intoxication, unspecified; E78.5 Hyperlipidemia, unspecified; F32.9 Major depressive disorder, single episode, unspecified; I25.2 Old myocardial infarction; I11.0 Hypertensive heart disease with heart failure; I50.9 Heart failure, unspecified; E78.00 Pure hypercholesterolemia, unspecified; J44.9 Chronic obstructive pulmonary disease, unspecified; Z86.73 Personal history of transient ischemic attack (TIA), and cerebral infarction without residual deficits; W18.30XA Fall on same level, unspecified, initial encounter; Y93.89 Activity, other specified; Y92.009 Unspecified place in unspecified non-institutional (private) residence as the place of occurrence of the external cause; Y99.8 Other external cause status
CPT/HCPCS: 70450; 99284

== ENCOUNTER 2018-10-01 09:09 | Inpatient (IN) | payer MEDICAID ==
[~2018-10-01] VITALS: Ht 185.7 cm; Wt 61.3 kg
[~2018-10-01 09:09] MED LIST changes: -TRAZ-136 PO; +TRAZ50TA66 PO
[2018-10-01] MEDS ORDERED: ALBUTEROL/IPRATROPIUM 2.5MG/0.5MG, 3 ML ONE ×2 (09:44→15:49)
[2018-10-01] MEDS ORDERED: methylPREDNISolone SOD SUCC 125 MG/2 ML ONE ×2 (09:52→13:44)
[2018-10-01] MEDS ORDERED: methylPREDNISolone SOD SUCC 125 MG/2 ML IVP ONE (10:00)
[2018-10-01] MEDS ORDERED: SODIUM CHLORIDE FLUSH 10ML SYR IVF ONE (10:00)
[2018-10-01] MEDS ORDERED: SODIUM CHLORIDE 0.9% 1,000ML IVBOLUS ONE (10:00)
[2018-10-01 10:14] LABS: BASOPHILS # (AUTO) 0.06 x10^3/uL (0-0.1); BASOPHILS % (AUTO) 1 % (0-1); EOSINOPHILS # (AUTO) 0.16 x10^3/uL (0-0.4); EOSINOPHILS % (AUTO) 2 % (1-7); LYMPHOCYTES % (AUTO) 43 % (22-44); MD NO; MEAN CORPUSCULAR HEMOGLOBIN 33.6 pg (27.5-34.5); MEAN CORPUSCULAR HGB CONC 33.8 g/dL (33.2-36.2); MEAN CORPUSCULAR VOLUME 99.2 fL (81-97); MEAN PLATELET VOLUME 7.2 fL (7.4-10.4); MONOCYTES # (AUTO) 0.67 x10^3/uL (0.2-0.8); MONOCYTES % (AUTO) 7 % (2-9); NEUTROPHILS # (AUTO) 4.63 x10^3/uL (1.8-6.8); NEUTROPHILS % (AUTO) 48 % (42-75); PLATELET COUNT 359 x10^3/uL (130-400); RED BLOOD COUNT 4.15 x10^6/uL (4.38-5.82)
[2018-10-01 10:24] LABS: CHLORIDE 102 mmol/L (98-107)
[2018-10-01 10:26] LABS: INTERNATIONAL NORMALIZED RATIO 0.93 (0.93-1.1); PROTHROMBIN TIME 9.9 Seconds (9.6-11.5)
[2018-10-01 10:27] LABS: ALBUMIN 3.6 g/dL (3.4-5.0); ANION GAP 12 mmol/L (5-15); CALCIUM 8.7 mg/dL (8.5-10.1)
[2018-10-01 10:33] LABS: ALANINE AMINOTRANSFERASE 28 U/L (12-78); ALKALINE PHOSPHATASE 132 U/L (45-117); BILIRUBIN,TOTAL 0.4 mg/dL (0.2-1.0); CREATININE 0.61 mg/dL (0.7-1.3); TOTAL PROTEIN 7.5 g/dL (6.4-8.2)
[2018-10-01] MEDS ORDERED: ONDANSETRON ODT 4 MG PO PRN (13:30)
[2018-10-01] MEDS ORDERED: ONDANSETRON 2MG/ML, 2ML IVPush PRN (13:30)
[2018-10-01] MEDS ORDERED: ACETAMINOPHEN 325 MG TABLET PO PRN (13:30)
[2018-10-01] MEDS ORDERED: ENOXAPARIN 40 MG/0.4 ML ONE (13:44)
[2018-10-01] MEDS ORDERED: NICOTINE 14MG/24 HR PATCH.TD24 ONE (13:44)
[2018-10-01] MEDS: NICOTINE 14MG/24 HR PATCH.TD24 TD SCH (13:47)
[2018-10-01] MEDS: methylPREDNISolone SOD SUCC 125 MG/2 ML IVPush SCH ×2 (13:49→20:40)
[2018-10-01] MEDS: ENOXAPARIN 40 MG/0.4 ML SQ SCH (13:51)
[2018-10-01 14:57] VITALS: BP 124/78
[2018-10-01] MEDS: DOXYCYCLINE 100 MG in DEXTROSE 5% 250 ML IV SCH (15:42)
[2018-10-01] MEDS: ALBUTEROL/IPRATROPIUM 2.5MG/0.5MG, 3 ML NPPB SCH ×2 (15:57→19:20)
[2018-10-01] MEDS: POTASSIUM CHLORIDE 20 MEQ, MAGNESIUM SULFATE 1 GM, FOLIC ACID 1 MG, THIAMINE 200 MG, MV... IV SCH (16:50)
[2018-10-01 18:43] VITALS: BP 130/75
[2018-10-01] MEDS: GUAIFENESIN ER 600 MG TABLET PO SCH (20:39)
[2018-10-01] MEDS: LORazepam 2 MG/ML, 1ML IVPush PRN (20:40)
[2018-10-02 01:15] VITALS: BP 153/85
[2018-10-02] MEDS: LORazepam 2 MG/ML, 1ML IVPush PRN ×2 (01:53→21:04)
[2018-10-02] MEDS: DOXYCYCLINE 100 MG in DEXTROSE 5% 250 ML IV SCH (02:00)
[2018-10-02 02:23] LABS: CLOSTRIDIUM DIFFICILE ANTIGEN POSITIVE; CLOSTRIDIUM DIFFICILE TOXIN NEGATIVE (Negative)
[2018-10-02] MEDS: methylPREDNISolone SOD SUCC 125 MG/2 ML IVPush SCH ×2 (03:28→09:01)
[2018-10-02 05:38] LABS: BASOPHILS # (AUTO) 0.01 x10^3/uL (0-0.1); BASOPHILS % (AUTO) 0 % (0-1); EOSINOPHILS % (AUTO) 0 % (1-7); LYMPHOCYTES # (AUTO) 0.66 x10^3/uL (1-3.4); LYMPHOCYTES % (AUTO) 15 % (22-44); MD NO; MEAN CORPUSCULAR HEMOGLOBIN 33.4 pg (27.5-34.5); MEAN CORPUSCULAR HGB CONC 34.2 g/dL (33.2-36.2); MEAN CORPUSCULAR VOLUME 97.5 fL (81-97); MEAN PLATELET VOLUME 7.3 fL (7.4-10.4); MONOCYTES # (AUTO) 0.22 x10^3/uL (0.2-0.8); MONOCYTES % (AUTO) 5 % (2-9); NEUTROPHILS # (AUTO) 3.61 x10^3/uL (1.8-6.8); NEUTROPHILS % (AUTO) 80 % (42-75); PLATELET COUNT 291 x10^3/uL (130-400); RED BLOOD COUNT 4.01 x10^6/uL (4.38-5.82); RED CELL DISTRIBUTION WIDTH 17.3 % (9.4-14.8)
[2018-10-02 05:40] LABS: ALANINE AMINOTRANSFERASE 27 U/L (12-78); ALBUMIN 3.4 g/dL (3.4-5.0); ANION GAP 8 mmol/L (5-15); CALCIUM 9.2 mg/dL (8.5-10.1); CHLORIDE 97 mmol/L (98-107)
[2018-10-02 05:42] LABS: ALKALINE PHOSPHATASE 140 U/L (45-117); BILIRUBIN,TOTAL 0.5 mg/dL (0.2-1.0); TOTAL PROTEIN 7.7 g/dL (6.4-8.2)
[2018-10-02 07:22] VITALS: BP 156/79
[2018-10-02] MEDS: ALBUTEROL/IPRATROPIUM 2.5MG/0.5MG, 3 ML NPPB SCH ×4 (07:31→19:22)
[2018-10-02] MEDS: GUAIFENESIN ER 600 MG TABLET PO SCH ×2 (09:01→20:54)
[2018-10-02] MEDS: FLUTICASONE/VILANTEROL 100-25MCG/INH INH SCH (10:26)
[2018-10-02] MEDS: DOXYCYCLINE 100MG CAP PO SCH ×2 (12:34→20:54)
[2018-10-02] MEDS: NICOTINE 14MG/24 HR PATCH.TD24 TD SCH (13:56)
[2018-10-02] MEDS: ENOXAPARIN 40 MG/0.4 ML SQ SCH (13:56)
[2018-10-02 14:07] VITALS: BP 152/74
[2018-10-02] MEDS: POTASSIUM CHLORIDE 20 MEQ, MAGNESIUM SULFATE 1 GM, FOLIC ACID 1 MG, THIAMINE 200 MG, MV... IV SCH (18:13)
[2018-10-02 19:33] VITALS: BP 117/73
[2018-10-02] MEDS ORDERED: DOXYCYCLINE 100MG CAP PO SCH (21:00)
[2018-10-03 02:17] VITALS: BP 120/73
[2018-10-03] MEDS: ALBUTEROL/IPRATROPIUM 2.5MG/0.5MG, 3 ML NPPB SCH (06:46)
[2018-10-03 07:39] VITALS: BP 118/67
[2018-10-03] MEDS: FLUTICASONE/VILANTEROL 100-25MCG/INH INH SCH (08:30)
[2018-10-03] MEDS: GUAIFENESIN ER 600 MG TABLET PO SCH (08:30)
[2018-10-03] MEDS: DOXYCYCLINE 100MG CAP PO SCH (08:30)
[2018-10-03] MEDS ORDERED: GUAI600T31 PO (10:18)
[2018-10-03] MEDS ORDERED: PRED20TA PO (10:18)
[2018-10-03] MEDS ORDERED: ALBU8.5H8 NAS (10:18)
[2018-10-03] MEDS ORDERED: DOXY100C2 PO (10:18)
[2018-10-03] MEDS ORDERED: FLUT1AER INH (10:18)
== END 2018-10-03 13:30 | disposition home or self-care (01) | DRG 189 ==
LOC: ED 11:30 → EDIP 12:49 → 3NE 14:07
PROVIDERS: ADMIT Internal Medicine; ATTEND Internal Medicine
DX: J96.21 Acute and chronic respiratory failure with hypoxia (principal); E87.2 Acidosis; J44.1 Chronic obstructive pulmonary disease with (acute) exacerbation; J98.11 Atelectasis; E78.5 Hyperlipidemia, unspecified; E86.9 Volume depletion, unspecified; F10.10 Alcohol abuse, uncomplicated; F17.210 Nicotine dependence, cigarettes, uncomplicated; I11.0 Hypertensive heart disease with heart failure; F32.9 Major depressive disorder, single episode, unspecified; I50.9 Heart failure, unspecified; Z86.711 Personal history of pulmonary embolism; Z86.73 Personal history of transient ischemic attack (TIA), and cerebral infarction without residual deficits; Z91.14 Patient's other noncompliance with medication regimen; I25.2 Old myocardial infarction; Z91.19 Patient's noncompliance with other medical treatment and regimen; Z99.81 Dependence on supplemental oxygen; Z71.6 Tobacco abuse counseling; Z79.899 Other long term (current) drug therapy
CPT/HCPCS: 36415; 84145; 99291; J7620; 71045; 71250; 80053; 83605; 83735; 83880; 84100; 85025; 85610; 85730; 87040; 87324; 87493; 93005; 94640; 96361; 96374; G0378; J1650; J3411; J3475; J3480; J7060; J7070; J2060; J2930; J7030; J7512